=== PATIENT | male | born 1965 | race American Indian/Alaskan Native ===

== ENCOUNTER 2019-04-12 01:11 | Emergency (ER) | payer MEDICARE ==
[2019-04-12 02:10] VITALS: BP 152/107
[2019-04-12] MEDS ORDERED: IBUPROFEN 800 MG TAB PO ONE (02:43)
[2019-04-12 03:16] LABS: Basophils % (Auto) 0.2 % (0.0-1.8); Eosinophils # (Auto) 0.1 K/mm3 (0.0-0.4); Eosinophils % (Auto) 0.5 % (0.0-4.3); Hematocrit 37.3 % (35.5-45.6); Hemoglobin 12.3 gm/dl (11.8-15.2); Lymphocytes % (Auto) 34.1 % (13.4-35.0); Mean Corpuscular HGB Conc 33 % (32-34); Mean Corpuscular Volume 94 fl (84-94); Monocytes # (Auto) 1.8 K/mm3 (0.0-0.8); Monocytes % (Auto) 15.5 % (0.0-7.3); Platelet Count 201 K/mm3 (140-440); Red Blood Count 3.98 M/mm3 (3.65-5.03); Red Cell Distribution Width 14.3 % (13.2-15.2)
[2019-04-12 03:32] LABS: Alanine Aminotransferase 15 units/L (7-56); Albumin 3.7 g/dL (3.9-5); BUN/Creatinine Ratio 21; Blood Urea Nitrogen 17 mg/dL (9-20); Calcium 8.7 mg/dL (8.4-10.2); Hemolysis Index 23
--- NOTE | 2019-04-12 03:43 | Emergency Department Report ---
- General Chief complaint: Skin/Abscess/Foreign Body Stated complaint: GROWTH ON BACK Time Seen by Provider: 04/12/19 02:42 Source: patient Mode of arrival: Ambulatory Limitations: No Limitations - History of Present Illness Initial comments: 53-year-old -[place] male presents to the emergency room for a lump on the lower back times one week. Patient states in the last 48 hours it has gotten larger and more painful. Patient reports that he's had a lump back there for a while but has not changed in size until recently. Patient has a past medical history of hypertension, alcohol abuse, sepsis, SIRS. Patient is followed by the [facility]. Onset/Timin -: week(s) Tetanus Up to Date: yes Location: back Severity: severe Quality: burning, sharp Consistency: constant Improves with: none Worsens with: palpation, movement Context: none Associated symptoms: denies other symptoms Treatments Prior to Arrival: none - Related Data Previous Rx's Medication Instructions Recorded Last Taken Type Pantoprazole [Protonix TAB] 40 mg PO BID@0800,2200 #60 tablet 12/02/14 02/25/19 Rx 40 mg Potassium Chloride [K-Dur] 10 meq PO QDAY #30 tablet 12/02/14 02/25/19 Rx 10 meq Thiamine [Vitamin B-1] 100 mg PO QDAY #30 tablet 12/02/14 02/25/19 Rx 100 mg Folic Acid [Folvite] 1 mg PO QDAY #30 tablet 02/28/19 Unknown Rx Melatonin [Melatonin 5MG TAB] 5 mg PO QHS #30 tablet 02/28/19 Unknown Rx Multivitamin Tab W-MINERAL 1 each PO QDAY #30 tablet 02/28/19 Unknown Rx [Multiple Vitamin/Mineral (Theragran M)] Thiamine [Vitamin B-1] 100 mg PO QDAY #30 tablet 02/28/19 Unknown Rx carvediloL [Coreg] 12.5 mg PO BID #60 tablet 02/28/19 Unknown Rx Allergies Allergy/AdvReac Type Severity Reaction Status Date / Time lisinopril Allergy Angioedema Verified 11/12/14 19:57 tramadol Allergy Hives Verified 04/12/19 02:09 Abscess Boil HPI - HPI Chief Complaint: Skin/Abscess/Foreign Body Stated Complaint: GROWTH ON BACK Time Seen by Provider: 04/12/19 02:42 Home Medications: Previous Rx's Medication Instructions Recorded Last Taken Type Pantoprazole [Protonix TAB] 40 mg PO BID@0800,2200 #60 tablet 12/02/14 02/25/19 Rx 40 mg Potassium Chloride [K-Dur] 10 meq PO QDAY #30 tablet 12/02/14 02/25/19 Rx 10 meq Thiamine [Vitamin B-1] 100 mg PO QDAY #30 tablet 12/02/14 02/25/19 Rx 100 mg Folic Acid [Folvite] 1 mg PO QDAY #30 tablet 02/28/19 Unknown Rx Melatonin [Melatonin 5MG TAB] 5 mg PO QHS #30 tablet 02/28/19 Unknown Rx Multivitamin Tab W-MINERAL 1 each PO QDAY #30 tablet 02/28/19 Unknown Rx [Multiple Vitamin/Mineral (Theragran M)] Thiamine [Vitamin B-1] 100 mg PO QDAY #30 tablet 02/28/19 Unknown Rx carvediloL [Coreg] 12.5 mg PO BID #60 tablet 02/28/19 Unknown Rx Allergies/Adverse Reactions: Allergies Allergy/AdvReac Type Severity Reaction Status Date / Time lisinopril Allergy Angioedema Verified 11/12/14 19:57 tramadol Allergy Hives Verified 04/12/19 02:09 ED Review of Systems ROS: Stated complaint: GROWTH ON BACK Other details as noted in HPI Comment: All other systems reviewed and negative ED Past Medical Hx - Past Medical History Previous Medical History?: Yes Hx Hypertension: Yes Hx CVA: No Hx Congestive Heart Failure: No Hx Diabetes: No Hx Deep Vein Thrombosis: No Hx Liver Disease: No Hx Renal Disease: No Hx Sickle Cell Disease: No Hx Arthritis: No Hx Headaches / Migraines: No Hx Seizures: No Hx Psychiatric Treatment: Yes Hx Asthma: No Hx COPD: No Hx HIV: No Additional medical history: high cholesterol, depression - Surgical History Past Surgical History?: Yes Hx Open Heart Surgery: No Hx Pacemaker: No Hx Internal Defibrillator: No Hx Cholecystectomy: No Hx Appendectomy: No Hx Breast Surgery: No Additional Surgical History: Left rotator cuff surg x 3Left knee surg x 3. alcohol abuse - Social History Smoking Status: Never Smoker Substance Use Type: None - Medications Home Medications: Home Medications Medication Instructions Recorded Confirmed Last Taken Type Pantoprazole [Protonix TAB] 40 mg PO BID@0800,2200 #60 tablet 12/02/14 02/28/19 02/25/19 Rx 40 mg Potassium Chloride [K-Dur] 10 meq PO QDAY #30 tablet 12/02/14 02/28/19 02/25/19 Rx 10 meq Thiamine [Vitamin B-1] 100 mg PO QDAY #30 tablet 12/02/14 02/28/19 02/25/19 Rx 100 mg Folic Acid [Folvite] 1 mg PO QDAY #30 tablet 02/28/19 Unknown Rx Melatonin [Melatonin 5MG TAB] 5 mg PO QHS #30 tablet 02/28/19 Unknown Rx Multivitamin Tab W-MINERAL 1 each PO QDAY #30 tablet 02/28/19 Unknown Rx [Multiple Vitamin/Mineral (Theragran M)] Thiamine [Vitamin B-1] 100 mg PO QDAY #30 tablet 02/28/19 Unknown Rx carvediloL [Coreg] 12.5 mg PO BID #60 tablet 02/28/19 Unknown Rx ED Physical Exam - General Limitations: No Limitations General appearance: alert, in no apparent distress - Head Head exam: Present: atraumatic, normocephalic - Eye Eye exam: Present: normal appearance - ENT ENT exam: Present: mucous membranes moist - Neck Neck exam: Present: normal inspection - Respiratory Respiratory exam: Present: normal lung sounds bilaterally. Absent: respiratory distress - Cardiovascular Cardiovascular Exam: Present: regular rate, normal rhythm. Absent: systolic murmur, diastolic murmur, rubs, gallop - GI/Abdominal GI/Abdominal exam: Present: soft, normal bowel sounds - Rectal Rectal exam: Present: deferred - Extremities Exam Extremities exam: Present: normal inspection - Back Exam Back exam: Present: tenderness, other (4 x 6 indurated erythematous tender area to mid lower lumbar) - Neurological Exam Neurological exam: Present: alert, oriented X3 - Psychiatric Psychiatric exam: Present: normal affect, normal mood - Skin Skin exam: Present: warm, dry, intact, normal color. Absent: rash ED Course Vital Signs 04/12/19 01:16 Temperature 98.5 F Pulse Rate 104 H Respiratory 18 Rate Blood Pressure 152/107 O2 Sat by Pulse 95 Oximetry ED Medical Decision Making - Lab Data Result diagrams: 04/12/19 02:53 04/12/19 02:53 Laboratory Tests 04/12/19 04/12/19 02:53 02:53 WBC 11.8 H RBC 3.98 Hgb 12.3 Hct 37.3 MCV 94 MCH 31 MCHC 33 RDW 14.3 Plt Count 201 Lymph % (Auto) 34.1 [place] % (Auto) 15.5 H Eos % (Auto) 0.5 Baso % (Auto) 0.2 Lymph # 4.0 [place] # 1.8 H Eos # 0.1 Baso # 0.0 Seg Neutrophils % 49.7 Seg Neutrophils # 5.9 Sodium 142 Potassium 3.4 L Chloride 103.7 Carbon Dioxide 25 Anion Gap 17 BUN 17 Creatinine 0.8 Estimated GFR > 60 BUN/Creatinine Ratio 21 Glucose 114 H Calcium 8.7 Total Bilirubin 0.20 AST 22 ALT 15 Alkaline Phosphatase 68 Total Protein 7.3 Albumin 3.7 L Albumin/Globulin Ratio 1.0 - Radiology Data Radiology results: report reviewed Patient: EMIR BAEZ MR#: [id number] : 1965 Acct:[id number] Age/Sex: 53 / M ADM Date: 04/12/19 Loc: ED Attending Dr: Ordering Physician: TORSTEN NEUMANN Date of Service: 04/12/19 Procedure(s): CT lumbar spine w con Accession Number(s): [id number] cc: TORSTEN NEUMANN CT LUMBAR SPINE WITH CONTRAST INDICATION / CLINICAL INFORMATION: back abscess X 2 YEARS. WORSENING PAIN X 2 WEEKS. 100 ML OMNIPAQUE 300. TECHNIQUE: Axial CT images were obtained through the lumbar spine after 100 mL Omnipaque 300 injected IV. Sagittal and coronal reformatted images were produced. All CT scans at this location are performed using CT dose reduction for ALARA by means of automated exposure control. COMPARISON: CT abdomen dated 11/18/14 FINDINGS: VERTEBRAE: No significant abnormality. ALIGNMENT: No significant abnormality. DISC SPACES: Mild discogenic spondylosis at L4-5 and L5-S1, unchanged. FACET JOINTS: No significant abnormality. SPINAL CANAL: No significant compromise. SACRUM:No significant abnormality of the visualized sacrum. PARASPINAL SOFT TISSUES: No significant abnormality. ADDITIONAL FINDINGS: Within the posterior subcutaneous soft tissues just to the left of midline, there is an ill-defined inflammatory collection measuring 2.9 x 1.8 x 2.1 cm with mild surrounding soft tissue inflammation. As is best seen on axial series 4 image 333 and sagittal series 301 image 16. There is no communication with the spinal canal. Collection is superficial to the paraspinal musculature. IMPRESSION: 1. Inflammatory collection in the left back may represent developing abscess. No involvement of the paraspinal muscles or spinal canal. Signer Name: Yamilex Glasgow MD Signed: 04/12/2019 4:25 AM Workstation Name: [id number] Transcribed By: DT Dictated By: Eyad Glasgow MD Electronically Authenticated By: Eyad Glsagow MD Signed Date/Time: 04/12/195 DD/ 0419 TD/TT: - Medical Decision Making 53-year-old -[place] male presents to the emergency room for a lump on the lower back times one week. Patient states in the last 48 hours it has gotten larger and more painful. Patient reports that he's had a lump back there for a while but has not changed in size until recently. Patient has a past medical history of hypertension, alcohol abuse, sepsis, SIRS. Patient is followed by the [facility]. Labs have been ordered mild elevation of WBCs in the blood with 11.4. Potassium is 3.4. CT of lumbar is pending. Patient has been given ibuprofen for pain management. Critical care attestation.: If time is entered above; I have spent that time in minutes in the direct care of this critically ill patient, excluding procedure time. ED Disposition Clinical Impression: Abscess Disposition: DC-01 TO HOME OR SELFCARE Is pt being admited?: No Does the pt Need Aspirin: No Condition: Stable Referrals: GENNA AMARAL MD [Primary Care Provider] - 3-5 Days
--- NOTE | 2019-04-12 05:33 | Cat Scan Report ---
CT LUMBAR SPINE WITH CONTRAST INDICATION / CLINICAL INFORMATION: back abscess X 2 YEARS. WORSENING PAIN X 2 WEEKS. 100 ML OMNIPAQUE 300. TECHNIQUE: Axial CT images were obtained through the lumbar spine after 100 mL Omnipaque 300 injected IV. Sagitt al and coronal reformatted images were produced. All CT scans at this location are performed using CT dose reduction for ALARA by means of automated exposure control. COMPARISON: CT abdomen dated 11/18/14 FINDINGS: VERTEBRAE: No significant abnormality. ALIGNMENT: No significant abnormality. DISC SPACES: Mild discogenic spondylosis at L4-5 and L5-S1, unchanged. FACET JOINTS: No significant abnormality. SPINAL CANAL: No significant compromise. SACRUM:No significant abnormality of the visualized sacrum. PARASPINAL SOFT TISSUES: No significant abnormality. ADDITIONAL FINDINGS: Within the posterior subcutaneous soft tissues just to the left of midline, ther e is an ill-defined inflammatory collection measuring 2.9 x 1.8 x 2.1 cm with mild surrounding soft t issue inflammation. As is best seen on axial series 4 image 333 and sagittal series 301 image 16. The re is no communication with the spinal canal. Collection is superficial to the paraspinal musculature . IMPRESSION: 1. Inflammatory collection in the left back may represent developing abscess. No involvement of the p araspinal muscles or spinal canal. Signer Name: Yamilex Glasgow MD Signed: 04/12/2019 4:25 AM Workstation Name: [id number]
== END 2019-04-12 05:15 | disposition home or self-care (01) ==
LOC: ED 01:11
DX: M54.5 Low back pain (principal); I10 Essential (primary) hypertension; E78.00 Pure hypercholesterolemia, unspecified; F32.9 Major depressive disorder, single episode, unspecified; Z98.890 Other specified postprocedural states; Z79.899 Other long term (current) drug therapy; Z88.6 Allergy status to analgesic agent
CPT/HCPCS: 36415; 72132; 80053; 85025; 99284; Q9967

== ENCOUNTER 2020-10-16 22:15 | Observation (INO) | payer MEDICARE, OTHER ==
--- NOTE | 2020-10-17 00:26 | Event Note ---
ED Screening Note ED Screening Note: This is a 54 yo male with hx of lumbar DDD s/p surgery and resulting foot drop who presents with back pain. This gentleman is scheduled for back surgery within the next few months at the [facility]. This initial assessment/diagnostic orders/clinical plan/treatment(s) is/are subject to change based on patients health status, clinical progression and re- assessment by fellow clinical providers in the ED. Further treatment and workup at subsequent clinical providers discretion. Patient/guardian urged not to elope from the ED as their condition may be serious if not clinically assessed and managed. Initial orders include: To treatment room for pain control
[2020-10-17] MEDS ORDERED: HYDROcodone/ACETAMINOPHEN 10-325MG TAB PO ONE (00:35)
[2020-10-17] MEDS ORDERED: KETOROLAC 60 MG/2 ML INJ IM ONE (01:20)
--- NOTE | 2020-10-17 01:23 | Emergency Department Report ---
ED Back Pain/Injury HPI - General Chief Complaint: Back Pain/Injury Stated Complaint: back pains Time Seen by Provider: 10/17/20 00:34 Source: patient, EMS Limitations: No Limitations - History of Present Illness Initial Comments: This is a 54-year-old male nontoxic, well nourished in appearance, no acute signs of distress presents to the ED with c/o of acute on chronic lower back pain. Patient is scheduled for a lumbar surgery in 2 months. Patient has past medical history of degenerative arthritis. Patient stated that he was doing sit ups in his backyard and started to have instant pain. Patient states has history of sciatica nerve pain which is similar symptoms as today. Patient states that pain radiates through to his left lower extremity. Patient denies any trauma. Denies any bladder or bowel instability. Patient denies any urinary symptoms. Denies any fever, chills, nausea, vomiting, headache, stiff neck, chest pain or shortness of breath. Patient denies any numbness or tingling. Stated allergies to lisinopril and tramadol. MD Complaint: back pain -: This evening Similar Symptoms Previously: Yes Place: home Radiation: left leg Severity: mild Severity scale (0 -10): 8 Quality: aching Consistency: intermittent Improves With: immobilization, sitting upright Worsens With: movement, walking Context: bending Associated Symptoms: denies other symptoms. denies: confusion, weakness, chest pain, numbness, difficulty walking, cough, difficulty urinating, diaphoresis, incontinence, fever/chills, constipation, headaches, abdominal pain, loss of appetite, malaise, nausea/vomiting, rash, seizure, shortness of breath, syncope - Related Data Previous Rx's Medication Instructions Recorded Last Taken Type Pantoprazole [Protonix TAB] 40 mg PO BID@0800,2200 #60 tablet 12/02/14 02/25/19 Rx 40 mg Potassium Chloride [K-Dur] 10 meq PO QDAY #30 tablet 12/02/14 02/25/19 Rx 10 meq Thiamine [Vitamin B-1] 100 mg PO QDAY #30 tablet 12/02/14 02/25/19 Rx 100 mg Folic Acid [Folvite] 1 mg PO QDAY #30 tablet 02/28/19 Unknown Rx Melatonin [Melatonin 5MG TAB] 5 mg PO QHS #30 tablet 02/28/19 Unknown Rx Multivitamin Tab W-MINERAL 1 each PO QDAY #30 tablet 02/28/19 Unknown Rx [Multiple Vitamin/Mineral (Theragran M)] Thiamine [Vitamin B-1] 100 mg PO QDAY #30 tablet 02/28/19 Unknown Rx carvediloL [Coreg] 12.5 mg PO BID #60 tablet 02/28/19 Unknown Rx Allergies Allergy/AdvReac Type Severity Reaction Status Date / Time lisinopril Allergy Angioedema Verified 11/12/14 19:57 tramadol Allergy Hives Verified 04/12/19 02:09 ED Review of Systems ROS: Stated complaint: back pains Other details as noted in HPI Comment: All other systems reviewed and negative Constitutional: denies: chills, fever Eyes: denies: eye pain, eye discharge, vision change ENT: denies: ear pain, throat pain Respiratory: denies: cough, shortness of breath, wheezing Cardiovascular: denies: chest pain, palpitations Endocrine: no symptoms reported Gastrointestinal: denies: abdominal pain, nausea, diarrhea Genitourinary: denies: urgency, dysuria Musculoskeletal: back pain. denies: joint swelling, arthralgia Skin: denies: rash, lesions Neurological: denies: headache, weakness, paresthesias Psychiatric: denies: anxiety, depression Hematological/Lymphatic: denies: easy bleeding, easy bruising ED Past Medical Hx - Past Medical History Previous Medical History?: Yes Hx Hypertension: Yes Hx CVA: No Hx Congestive Heart Failure: No Hx Diabetes: Yes Hx Deep Vein Thrombosis: No Hx Liver Disease: No Hx Renal Disease: No Hx Sickle Cell Disease: No Hx Arthritis: No Hx Headaches / Migraines: No Hx Seizures: No Hx Psychiatric Treatment: Yes Hx Asthma: No Hx COPD: No Hx HIV: No Additional medical history: high cholesterol, depression, Sciatica, Foot drop on left foot - Surgical History Past Surgical History?: Yes Hx Open Heart Surgery: No Hx Pacemaker: No Hx Internal Defibrillator: No Hx Cholecystectomy: No Hx Appendectomy: No Hx Breast Surgery: No Additional Surgical History: Left rotator cuff surg x 3Left knee surg x 3. alcohol abuse - Social History Smoking Status: Never Smoker - Medications Home Medications: Home Medications Medication Instructions Recorded Confirmed Last Taken Type Pantoprazole [Protonix TAB] 40 mg PO BID@0800,2200 #60 tablet 12/02/14 02/28/1919 Rx 40 mg Potassium Chloride [K-Dur] 10 meq PO QDAY #30 tablet 12/02/14 02/28/19 02/25/19 Rx 10 meq Thiamine [Vitamin B-1] 100 mg PO QDAY #30 tablet 12/02/14 02/28/19 02/25/19 Rx 100 mg Folic Acid [Folvite] 1 mg PO QDAY #30 tablet 02/28/19 Unknown Rx Melatonin [Melatonin 5MG TAB] 5 mg PO QHS #30 tablet 02/28/19 Unknown Rx Multivitamin Tab W-MINERAL 1 each PO QDAY #30 tablet 02/28/19 Unknown Rx [Multiple Vitamin/Mineral (Theragran M)] Thiamine [Vitamin B-1] 100 mg PO QDAY #30 tablet 02/28/19 Unknown Rx carvediloL [Coreg] 12.5 mg PO BID #60 tablet 02/28/19 Unknown Rx ED Physical Exam - General Limitations: No Limitations General appearance: alert, in no apparent distress - Head Head exam: Present: atraumatic, normocephalic - Eye Eye exam: Present: normal appearance - Neck Neck exam: Present: normal inspection, full ROM. Absent: tenderness, meningismus, lymphadenopathy - Respiratory Respiratory exam: Absent: respiratory distress - Cardiovascular Cardiovascular Exam: Present: regular rate - GI/Abdominal GI/Abdominal exam: Present: soft. Absent: distended, tenderness - Extremities Exam Extremities exam: Present: normal inspection - Back Exam Back exam: Present: normal inspection, full ROM, paraspinal tenderness (lumbar paraspinal). Absent: tenderness, CVA tenderness (R), CVA tenderness (L), muscle spasm, vertebral tenderness, rash noted - Expanded Back Exam Expanded Back exam: Absent: saddle anesthesia Back exam: Negative Straight Leg Raising: Left, Right - Neurological Exam Neurological exam: Present: alert, oriented X3 - Psychiatric Psychiatric exam: Present: normal affect, normal mood - Skin Skin exam: Present: warm, dry, intact, normal color. Absent: rash ED Course Vital Signs 10/17/20 10/17/20 01:26 01:30 Pulse Rate 128 H 123 H Respiratory 20 19 Rate Blood Pressure 156/93 O2 Sat by Pulse 94 Oximetry - Reevaluation(s) Reevaluation #1: 10/17/20 01:21 Patient is speaking in full sentences with no signs of distress noted. - Consultations Consultation #1: 10/17/20 02:03 Patient has been consulted with Ivan Greer about patient history, physical exam, and EKG results and agrees to ED plan of care with admission. Consultation #2: 10/17/20 02:34 Patient has been consulted with [place] about patient history, physical exam, and labs results and agrees to imaging studies and admission. Consultation #3: 10/17/20 03:57 Patient has been consulted with Dr. Heard (hospitalist) about patient history, physical exam, and labs/imaging results and accepts patient to services. ED Medical Decision Making - Lab Data Result diagrams: 10/17/20 01:43 10/17/20 01:43 Lab Results 10/17/20 10/17/20 10/17/20 Range/Units 01:43 01:43 01:43 WBC 11.1 H (4.5-11.0) K/mm3 RBC 4.43 (3.65-5.03) M/mm3 Hgb 13.7 (11.8-15.2) gm/dl Hct 40.2 (35.5-45.6) % MCV 91 (84-94) fl MCH 31 (28-32) pg MCHC 34 (32-34) % RDW 15.6 H (13.2-15.2) % Plt Count 148 (140-440) K/mm3 Lymph % (Auto) 28.4 (13.4-35.0) % [place] % (Auto) 12.4 H (0.0-7.3) % Eos % (Auto) 0.4 (0.0-4.3) % Baso % (Auto) 0.4 (0.0-1.8) % Lymph # (Auto) 3.2 (1.2-5.4) K/mm3 [place] # (Auto) 1.4 H (0.0-0.8) K/mm3 Eos # (Auto) 0.0 (0.0-0.4) K/mm3 Baso # (Auto) 0.0 (0.0-0.1) K/mm3 Seg Neutrophils % 58.4 (40.0-70.0) % Seg Neutrophils # 6.5 (1.8-7.7) K/mm3 PT 13.9 (12.2-14.9) Sec. INR 1.09 (0.87-1.13) APTT 26.1 (24.2-36.6) Sec. D-Dimer 768.42 H (0-234) ng/mlDDU Sodium 137 (137-145) mmol/L Potassium 3.7 (3.6-5.0) mmol/L Chloride 93.4 L (98-107) mmol/L Carbon Dioxide 25 (22-30) mmol/L Anion Gap 22 mmol/L BUN 29 H (9-20) mg/dL Creatinine 3.1 H (0.8-1.3) mg/dL Estimated GFR 25 ml/min BUN/Creatinine Ratio 9 % Glucose 150 H (75-100) mg/dL Calcium 9.5 (8.4-10.2) mg/dL Total Bilirubin 0.50 (0.1-1.2) mg/dL AST 179 H (5-40) units/L ALT 45 (7-56) units/L Alkaline Phosphatase 54 (35-129) units/L Troponin T 0.022 (0.00-0.029) ng/mL Total Protein 7.5 (6.3-8.2) g/dL Albumin 4.5 (3.9-5) g/dL Albumin/Globulin Ratio 1.5 % - EKG Data 10/17/20 02:04 A flutter with 2:1 AV block at 141 bpm. Left anterior fascicular block. Reviewed and signed by . - Radiology Data [facility] [address] [place] [address] Cat Scan Report Signed Patient: EMIR BAEZ MR#: [id number] : 1965 Acct:[id number] Age/Sex: 54 / M ADM Date: 10/16/20 Loc: ED Attending Dr: Sugar flannery Physician: JOHANNA STARKS NP Date of Service: 10/17/20 Procedure(s): CT chest wo con Accession Number(s): [id number] cc: JOHANNA STARKS NP CT CHEST, ABDOMEN, AND PELVIS WITHOUT CONTRAST INDICATION / CLINICAL INFORMATION: back pain with elevated d-dimmer and tachycardia. TECHNIQUE: Axial CT images were obtained through the chest, abdomen, and pelvis without contrast. All CT scans at this location are performed using CT dose reduction for ALARA by means of automated exposure control. COMPARISON: Patient's prior CT scan from 2015 is not available for comparison. FINDINGS: HEART: No significant abnormality. CORONARY ARTERY CALCIFICATION: None. THORACIC AORTA: No significant abnormality. MEDIA STINUM / TC: No significant abnormality. PLEURA: No pleural effusion. No pneumothorax. LUNGS: No acute air space or interstitial disease. ADDITIONAL CHEST FINDINGS: None. LIVER: No significant abnormality. GALLBLADDER: No significant abnormality. BILE DUCTS: No significant abnormality. PANCREAS: No significant abnormality. SPLEEN: No significant abnormality. ADRENALS: No significant abnormality. RIGHT KIDNEY / URETER: No significant abnormality. LEFT KIDNEY / URETER: No significant abnormality. STOMACH and SMALL BOWEL: No significant abnormality. COLON: No significant abnormality. APPENDIX: No significant abnormality. PERITONEUM: No free fluid. No free air. No fluid collection. There is a 10 cm fat density mass with some soft tissue components in the central mesentery. This could represent fat necrosis. This could represent a lipoma. With the amount of soft tissue density associated with this the possibility of liposarcoma is considered. LYMPH NODES: No significant adenopathy. AORTA / ARTERIES: No significant abnormality. IVC / VEINS: No significant abnormality. URINARY BLADDER: No significant abnormality. REPRODUCTIVE ORGANS: No significant abnormality. ADDITIONAL FINDINGS: None. SKELETAL SYSTEM: No acute abnormality. There is degenerative change in the lower lumbar spine with disc space narrowing and osteophyte formation at L4-5 and L5- S1. IMPRESSION: 1. There is no obstruction, inflammation, or free air. There are no abnormal fluid collections. There are no renal or ureteral calculi. There is no hydronephrosis. 2. There is a 10 cm fat density mass in the central mesent [place] which could represent a lipoma or much less likely liposarcoma. Signer Name: Nikita Sanchez MD Signed: 10/17/2020 3:37 AM Workstation Name: [id number] Transcribed By: Dictated By: Nikita Sanchez MD Electronically Authenticated By: Nikita Sanchez MD Signed Date/Time: 10/17/20 0337 DD/ 8 TD/TT: [facility] [address] [place] [address] Cat Scan Report Signed Patient: EMIR BAEZ MR#: [id number] : 1965 Acct:[id number] Age/Sex: 54 / M ADM Date: 10/16/20 Loc: ED Attending Dr: Ordering Physician: JOHANNA STARKS NP Date of Service: 10/17/20 Procedure(s): CT abdomen pelvis wo con Accession Number(s): [id number] cc: JOHANNA STARKS NP CT CHEST, ABDOMEN, AND PELVIS WITHOUT CONTRAST INDICATION / CLINICAL INFORMATION: back pain with elevated d-dimmer and tachycardia. TECHNIQUE: Axial CT images were obtained through the chest, abdomen, and pelvis without contrast. All CT scans at this location are performed using CT dose reduction for ALARA by means of automated exposure control. COMPARISON: Patient's prior CT scan from 2014 is not available for comparison. FINDINGS: HEART: No significant abnormality. CORONARY ARTERY CALCIFICATION: None. THORACIC AORTA: No significant abnormality. MEDIASTINUM / TC: No significant abnormality. PLEURA: No pleural effusion. No pneumothorax. LUNGS: No acute air space or interstitial disease. ADDITIONAL CHEST FINDINGS: None. LIVER: No significant abnormality. GALLBLADDER: No significant abnormality. BILE DUCTS: No significant abnormality. PANCREAS: No significant abnormality. SPLEEN: No significant abnormality. ADRENALS: No significant abnormality. RIGHT KIDNEY / URETER: No significant abnormality. LEFT KIDNEY / URETER: No significant abnormality. STOMACH and SMALL BOWEL: No significant abnormality. COLON: No significant abnormality. APPENDIX: No significant abnormality. PERITONEUM: No free fluid. No free air. No fluid collection. There is a 10 cm fat density mass with some soft tissue components in the central mesentery. This could represent fat necrosis. This could represent a lipoma. With the amount of soft tissue density associated with this the possibility of liposarcoma is considered. LYMPH NODES: No significant adenopathy. AORTA / ARTERIES: No significant abnormality. IVC / VEINS: No significant abnormality. URINARY BLADDER: No significant abnormality. REPRODUCTIVE ORGANS: No significant abnormality. ADDITIONAL FINDINGS: None. SKELETAL SYSTEM: No acute abnormality. There is degenerative change in the lower lumbar spine with disc space narrowing and osteophyte formation at L4-5 and L5- S1. IMPRESSION: 1. There is no obstruction, inflammation, or free air. There are no abnormal fluid collections. There are no renal or ureteral calculi. There is no hydronephrosis. 2. There is a 10 cm fat density mass in the central mese ntery which could represent a lipoma or much less likely liposarcoma. Signer Name: Nikita Sanchez MD Signed: 10/17/2020 3:37 AM Workstation Name: [id number] Transcribed By: Dictated By: Nikita Sanchez MD Electronically Authenticated By: Nikita Sanchez MD Signed Date/Time: 10/17/20 0337 DD/ TD/TT: [address] [address] XRay Report Signed Patient: EMIR BAEZ MR#: [id number] : 1965 Acct:[id number] Age/Sex: 54 / M ADM Date: 10/16/20 Loc: ED Attending Dr: Ordering Physician: JOHANNA STARKS NP Date of Service: 10/17/20 Procedure(s): XR spine lumbosacral 2-3V Accession Number(s): [id number] cc: JOHANNA STARKS NP Fluoro Time In Minutes: LUMBAR SPINE 2 VIEWS INDICATION: low back pain COMPARISON: None available FINDINGS: There is no fracture, subluxation, or other acute radiographic abnormality of the lumbar spine. There is degenerative change in the lower lumbar spine with disc space narrowing at L4-5 and L5-S1 and to a lesser extent at L3-4. There is anterior osteophyte formation. Signer Name: Nikita Sanchez MD Signed: 10/17/2020 2:45 AM Workstation Name: [id number] Transcribed By: Dictated By: Nikita Sanchez MD Electronically Authenticated By: Nikita Sanchez MD Signed Date/Time: 10/17/20 0245 DD/ 0243 TD/TT: [address] [address] XRay Report Signed Patient: EMIR BAEZ MR#: [id number] : 1965 Acct:[id number] Age/Sex: 54 / M ADM Date: 10/16/20 Loc: ED Attending Dr: Ordering Physician: JOHANNA STARKS NP Date of Service: 10/17/20 Procedure(s): XR chest 1V ap Accession Number(s): [id number] cc: JOHANNA STARKS NP Fluoro Time In Minutes: CHEST 1 VIEW 10/17/2020 2:32 AM INDICATION / CLINICAL INFORMATION: tachycardia. COMPARISON: 02/26/2019 FINDINGS: SUPPORT DEVICES: None. HEART / MEDIASTINUM: No significant abnormality. LUNGS / PLEURA: No significant pulmonary or pleural abnormality. No pneumothorax. ADDITIONAL FINDINGS: No significant additional findings. IMPRESSION: 1. No acute findings. Signer Name: Nikita Sanhcez MD Signed: 10/17/2020 2:42 AM Workstation Name: [id number] Transcribed By: SS Dictated By: Nikita Sanchez MD Electronically Authenticated By: Nikita Sanchez MD Signed Date/Time: 10/17/20241 DD/ 1 TD/TT: - Medical Decision Making 54-year-old male that presents with acute onset of kidney insufficiency with a flutter with 2:1 AV block. Patient is stable and was examined by me. Patient came in with hypotension and tachycardia. EKG and lab work has been obtained due to this. This is a new acute onset as patient denies any history of this. Patient admitted with hospitalist. Patient did consult with ED physician and agrees to the ED plan of care. Patient is notified of the imaging and lab with EKG results with no questions noted by by the patient. At time of admission, the patient does not seem toxic or ill in appearance. No acute signs of distress noted. Patient agrees to admission treatment plan of care. No further questions noted by the patient. - Differential Diagnosis UTI, low back strain, dissection, lumbar abscess, AAA Critical care attestation.: If time is entered above; I have spent that time in minutes in the direct care of this critically ill patient, excluding procedure time. ED Disposition Clinical Impression: AV block, Acute kidney insufficiency, Tachycardia, Mediastinal mass Atrial flutter Qualifiers: Atrial flutter type: unspecified Qualified Code(s): I48.92 - Unspecified atrial flutter Chronic back pain Qualifiers: Back pain location: low back pain Back pain laterality: bilateral Sciatica presence: with sciatica Sciatica laterality: sciatica of left side Qualified Code(s): M54.42 - Lumbago with sciatica, left side Disposition: - OP ADMIT IP TO THIS HOSP Is pt being admited?: Yes Condition: Stable Referrals: [facility] [Other] - 3-5 Days
[2020-10-17] MEDS ORDERED: SODIUM CHLORIDE 0.9% 1000 ML 1,000 ML IV ONE (01:38)
[2020-10-17 02:06] LABS: Basophils % (Auto) 0.4 % (0.0-1.8); Eosinophils % (Auto) 0.4 % (0.0-4.3); Hematocrit 40.2 % (35.5-45.6); Hemoglobin 13.7 gm/dl (11.8-15.2); Lymphocytes # (Auto) 3.2 K/mm3 (1.2-5.4); Lymphocytes % (Auto) 28.4 % (13.4-35.0); Mean Corpuscular HGB Conc 34 % (32-34); Mean Corpuscular Volume 91 fl (84-94); Monocytes # (Auto) 1.4 K/mm3 (0.0-0.8); Monocytes % (Auto) 12.4 % (0.0-7.3); Platelet Count 148 K/mm3 (140-440); Red Blood Count 4.43 M/mm3 (3.65-5.03); Red Cell Distribution Width 15.6 % (13.2-15.2)
[2020-10-17 02:16] LABS: INR 1.09 (0.87-1.13); Partial Thromboplastin Time 26.1 Sec. (24.2-36.6)
[2020-10-17 02:26] LABS: Albumin 4.5 g/dL (3.9-5); Calcium 9.5 mg/dL (8.4-10.2)
--- NOTE | 2020-10-17 02:47 | XRay Report ---
CHEST 1 VIEW 10/17/2020 2:32 AM INDICATION / CLINICAL INFORMATION: tachycardia. COMPARISON: 02/26/2019 FINDINGS: SUPPORT DEVICES: None. HEART / MEDIASTINUM: No significant abnormality. LUNGS / PLEURA: No significant pulmonary or pleural abnormality. No pneumothorax. ADDITIONAL FINDINGS: No significant additional findings. IMPRESSION: 1. No acute findings. Signer Name: Nikita Sanchez MD Signed: 10/17/2020 2:42 AM Workstation Name: [id number]
--- NOTE | 2020-10-17 02:49 | XRay Report ---
LUMBAR SPINE 2 VIEWS INDICATION: low back pain COMPARISON: None available FINDINGS: There is no fracture, subluxation, or other acute radiographic abnormality of the lumbar spine. There is degenerative change in the lower lumbar spine with disc space narrowing at L4-5 and L5-S1 and to a lesser extent at L3-4. There is anterior osteophyte formation. Signer Name: Nikita Sanchez MD Signed: 10/17/2020 2:45 AM Workstation Name: [id number]
--- NOTE | 2020-10-17 03:42 | Cat Scan Report ---
CT CHEST, ABDOMEN, AND PELVIS WITHOUT CONTRAST INDICATION / CLINICAL INFORMATION: back pain with elevated d-dimmer and tachycardia. TECHNIQUE: Axial CT images were obtained through the chest, abdomen, and pelvis without contrast. All CT scans at this location are performed using CT dose reduction for ALARA by means of automated expo sure control. COMPARISON: Patient's prior CT scan from 2015 is not available for comparison. FINDINGS: HEART: No significant abnormality. CORONARY ARTERY CALCIFICATION: None. THORACIC AORTA: No significant abnormality. MEDIASTINUM / TC: No significant abnormality. PLEURA: No pleural effusion. No pneumothorax. LUNGS: No acute air space or interstitial disease. ADDITIONAL CHEST FINDINGS: None. LIVER: No significant abnormality. GALLBLADDER: No significant abnormality. BILE DUCTS: No significant abnormality. PANCREAS: No significant abnormality. SPLEEN: No significant abnormality. ADRENALS: No significant abnormality. RIGHT KIDNEY / URETER: No significant abnormality. LEFT KIDNEY / URETER: No significant abnormality. STOMACH and SMALL BOWEL: No significant abnormality. COLON: No significant abnormality. APPENDIX: No significant abnormality. PERITONEUM: No free fluid. No free air. No fluid collection. There is a 10 cm fat density mass with s ome soft tissue components in the central mesentery. This could represent fat necrosis. This could re present a lipoma. With the amount of soft tissue density associated with this the possibility of lipo sarcoma is considered. LYMPH NODES: No significant adenopathy. AORTA / ARTERIES: No significant abnormality. IVC / VEINS: No significant abnormality. URINARY BLADDER: No significant abnormality. REPRODUCTIVE ORGANS: No significant abnormality. ADDITIONAL FINDINGS: None. SKELETAL SYSTEM: No acute abnormality. There is degenerative change in the lower lumbar spine with di sc space narrowing and osteophyte formation at L4-5 and L5-S1. IMPRESSION: 1. There is no obstruction, inflammation, or free air. There are no abnormal fluid collections. There are no renal or ureteral calculi. There is no hydronephrosis. 2. There is a 10 cm fat density mass in the central mesentery which could represent a lipoma or much less likely liposarcoma. Signer Name: Nikita Sanchez MD Signed: 10/17/2020 3:37 AM Workstation Name: [id number]
[2020-10-17] MEDS ORDERED: dilTIAZem 25 MG/5 ML INJ IV ONE (04:37)
[2020-10-17] MEDS ORDERED: ACETAMINOPHEN 325 MG TAB PO PRN ×2 (05:29→05:48)
[2020-10-17] MEDS ORDERED: traMADol 50 MG TAB PO PRN (05:29)
[2020-10-17] MEDS ORDERED: MORPHINE 2 MG/1 ML INJ IV PRN (05:29)
[2020-10-17] MEDS ORDERED: hydrALAZINE 20 MG/1 ML INJ IV PRN ×2 (05:35→05:47)
--- NOTE | 2020-10-17 05:40 | History and Physical Report ---
History of Present Illness Date of examination: 10/17/20 Date of admission: 10/17/20 Chief complaint: Back pain/injury History of present illness: 54-year-old male with history of c/o of acute on chronic lower back pain, degenerative arthritis was brought to the emergency room for severe back pain .he is supposed to have lumbar surgery in 2 months. Patient stated that he was doing sit ups in his backyard and started to have instant pain. Patient states has history of sciatica nerve pain which is similar symptoms as today. Patient states that pain radiates through to his left lower extremity. Patient denies any trauma. Denies any bladder or bowel instability. Patient denies any urinary symptoms. Denies any fever, chills, nausea, vomiting, headache, stiff neck, chest pain or shortness of breath. Patient denies any numbness or tingling. Stated allergies to lisinopril and tramadol. In the ER patient is found to have a flutter A. fib with a heart rate around 140 Past History Past Medical History: arthritis Medications and Allergies Allergies Allergy/AdvReac Type Severity Reaction Status Date / Time lisinopril Allergy Angioedema Verified 11/12/14 19:57 tramadol Allergy Hives Verified 04/12/19 02:09 Home Medications Medication Instructions Recorded Confirmed Last Taken Type Pantoprazole [Protonix TAB] 40 mg PO BID@0800,2200 #60 tablet 12/02/14 02/28/19 02/25/19 Rx 40 mg Potassium Chloride [K-Dur] 10 meq PO QDAY #30 tablet 12/02/14 02/28/19 02/25/19 Rx 10 meq Thiamine [Vitamin B-1] 100 mg PO QDAY #30 tablet 12/02/14 02/28/19 02/25/19 Rx 100 mg Folic Acid [Folvite] 1 mg PO QDAY #30 tablet 02/28/19 Unknown Rx Melatonin [Melatonin 5MG TAB] 5 mg PO QHS #30 tablet 02/28/19 Unknown Rx Multivitamin Tab W-MINERAL 1 each PO QDAY #30 tablet 02/28/19 Unknown Rx [Multiple Vitamin/Mineral (Theragran M)] Thiamine [Vitamin B-1] 100 mg PO QDAY #30 tablet 02/28/19 Unknown Rx carvediloL [Coreg] 12.5 mg PO BID #60 tablet 02/28/19 Unknown Rx Active Meds: Active Medications Acetaminophen (Acetaminophen 325 Mg Tab) 650 mg PO Q6H PRN PRN Reason: Pain, Mild (1-3) Aspirin (Aspirin Ec 325 Mg Tab) 325 mg PO QDAY [facility] Atorvastatin Calcium (Atorvastatin 40 Mg Tab) 40 mg PO QHS [facility] Carvedilol (Carvedilol 12.5 Mg Tab) 12.5 mg PO BID [facility] Folic Acid (Folic Acid 1 Mg Tab) 1 mg PO QDAY [facility] Heparin Sodium (Porcine) (Heparin 5,000 Unit/1 Ml Vial) 5,000 unit SUB-Q Q8HR [facility] Hydralazine HCl (Hydralazine 20 Mg/1 Ml Inj) 10 mg IV Q6H PRN PRN Reason: htn Sodium Chloride (Nacl 0.45% 1000 Ml) 1,000 mls @ 100 mls/hr IV DIRECT [facility] Sodium Chloride (Nacl 0.45% 1000 Ml) 1,000 mls @ 100 mls/hr IV DIRECT [facility] Morphine Sulfate (Morphine 4 Mg/1 Ml Inj) 2 mg IV Q5MIN PRN PRN Reason: Chest Pain Multivitamins/Minerals (Multivitamins,Ther W-Minerals Tab) 1 each PO QDAY [facility] Pantoprazole Sodium (Pantoprazole 40 Mg Tab) 40 mg PO QDAY [facility] Pantoprazole Sodium (Pantoprazole 40 Mg Tab) 40 mg PO BID@0800,2200 [facility] Sodium Chloride (Sodium Chloride 0.9% 10 Ml Flush Syringe) 10 ml IV PRN PRN PRN Reason: LINE FLUSH Thiamine HCl (Thiamine 100 Mg Tab) 100 mg PO QDAY [facility] Tramadol HCl (Tramadol 50 Mg Tab) 50 mg PO Q6H PRN PRN Reason: Pain, Moderate (4-6) Review of Systems Musculoskeletal: arthritis, other (Severe back pain) Exam - Constitutional Vitals: Temp Pulse Resp BP Pulse Ox 123 H 19 156/93 94 10/17/20 01:30 10/17/20 01:30 10/17/20 01:30 10/17/20 01:30 General appearance: Present: no acute distress, well-nourished - EENT Eyes: Present: PERRL ENT: hearing intact, clear oral mucosa - Neck Neck: Present: supple, normal ROM - Respiratory Respiratory effort: normal Respiratory: bilateral: CTA - Cardiovascular Heart Sounds: Present: S1 & S2. Absent: rub, click - Extremities Extremities: pulses symmetrical, No edema Peripheral Pulses: within normal limits - Abdominal General gastrointestinal: Present: soft, non-tender, non-distended, normal bowel sounds Male genitourinary: Present: normal - Integumentary Integumentary: Present: clear, warm, dry - Musculoskeletal Musculoskeletal: gait normal, strength equal bilaterally - Psychiatric Psychiatric: appropriate mood/affect, intact judgment & insight - Neurologic Neurologic: CNII-XII intact, moves all extremities HEART Score - HEART Score Troponin: Troponin T 0.022 ng/mL (0.00-0.029) 10/17/20 01:43 Results - Labs CBC & Chem 7: 10/17/20 01:43 10/17/20 01:43 Labs: Laboratory Last Values WBC 11.1 K/mm3 (4.5-11.0) H 10/17/20 01:43 RBC 4.43 M/mm3 (3.65-5.03) 10/17/20 01:43 Hgb 13.7 gm/dl (11.8-15.2) 10/17/20 01:43 Hct 40.2 % (35.5-45.6) 10/17/20 01:43 MCV 91 fl (84-94) 10/17/20 01:43 MCH 31 pg (28-32) 10/17/20 01:43 MCHC 34 % (32-34) 10/17/20 01:43 RDW 15.6 % (13.2-15.2) H 10/17/20 01:43 Plt Count 148 K/mm3 (140-440) 10/17/20 01:43 Lymph % (Auto) 28.4 % (13.4-35.0) 10/17/20 01:43 Ocean % (Auto) 12.4 % (0.0-7.3) H 10/17/20 01:43 Eos % (Auto) 0.4 % (0.0-4.3) 10/17/20 01:43 Baso % (Auto) 0.4 % (0.0-1.8) 10/17/20 01:43 Lymph # (Auto) 3.2 K/mm3 (1.2-5.4) 10/17/20 01:43 [place] # (Auto) 1.4 K/mm3 (0.0-0.8) H 10/17/20 01:43 Eos # (Auto) 0.0 K/mm3 (0.0-0.4) 10/17/20 01:43 Baso # (Auto) 0.0 K/mm3 (0.0-0.1) 10/17/20 01:43 Seg Neutrophils % 58.4 % (40.0-70.0) 10/17/20 01:43 Seg Neutrophils # 6.5 K/mm3 (1.8-7.7) 10/17/20 01:43 PT 13.9 Sec. (12.2-14.9) 10/17/20 01:43 INR 1.09 (0.87-1.13) 10/17/20 01:43 APTT 26.1 Sec. (24.2-36.6) 10/17/20 01:43 D-Dimer 768.42 ng/mlDDU (0-234) H 10/17/20 01:43 Sodium 137 mmol/L (137-145) 10/17/20 01:43 Potassium 3.7 mmol/L (3.6-5.0) 10/17/20 01:43 Chloride 93.4 mmol/L (98-107) L 10/17/20 01:43 Carbon Dioxide 25 mmol/L (22-30) 10/17/20 01:43 Anion Gap 22 mmol/L 10/17/20 01:43 BUN 29 mg/dL (9-20) H 10/17/20 01:43 Creatinine 3.1 mg/dL (0.8-1.3) H 10/17/20 01:43 Estimated GFR 25 ml/min 10/17/20 01:43 BUN/Creatinine Ratio 9 % 10/17/20 01:43 Glucose 150 mg/dL (75-100) H 10/17/20 01:43 Calcium 9.5 mg/dL (8.4-10.2) 10/17/20 01:43 Total Bilirubin 0.50 mg/dL (0.1-1.2) 10/17/20 01:43 AST 179 units/L (5-40) H 10/17/20 01:43 ALT 45 units/L (7-56) 10/17/20 01:43 Alkaline Phosphatase 54 units/L (35-129) 10/17/20 01:43 Troponin T 0.022 ng/mL (0.00-0.029) 10/17/20 01:43 Total Protein 7.5 g/dL (6.3-8.2) 10/17/20 01:43 Albumin 4.5 g/dL (3.9-5) 10/17/20 01:43 Albumin/Globulin Ratio 1.5 % 10/17/20 01:43 - Imaging and Cardiology Chest x-ray: image reviewed CT scan - chest: image reviewed Assessment and Plan VTE prophylaxis?: Chemical Plan of care discussed with patient/family: Yes - Patient Problems (1) Atrial flutter Current Visit: Yes Status: Acute Qualifiers: Atrial flutter type: unspecified Qualified Code(s): I48.92 - Unspecified atrial flutter Plan to address problem: Admit the patient to the cardiac telemetry. Coreg 12.5 mg p.o. twice daily. Aspirin 325 mg p.o. daily and Lipitor 40 mg p.o. daily. Will order echocardiogram. We also consult cardiology for evaluation. Heparin 5000 units subcu every 8 hours (2) AV block Current Visit: Yes Status: Acute Plan to address problem: Coreg 12.5 mg p.o. twice daily. Aspirin 325 mg p.o. daily and Lipitor 40 mg p.o. daily. Will order echocardiogram. We also consult cardiology for evaluation. Heparin 5000 units subcu every 8 hours (3) Chronic back pain Current Visit: Yes Status: Acute Qualifiers: Back pain location: low back pain Back pain laterality: bilateral Sciatica presence: with sciatica Sciatica laterality: sciatica of left side Qualified Code(s): M54.42 - Lumbago with sciatica, left side; G89.29 - Other chronic pain Plan to address problem: Tylenol 650 mg p.o. every 6 hours as needed. We also put the patient on morphine 1 to 2 mg IV every 4 hours as needed. (4) Accelerated hypertension Current Visit: No Status: Acute Plan to address problem: Coreg 12.5 mg p.o. twice daily. Hydralazine 10 mg IV every 6 hours as needed. We will monitor the blood pressure closely. We also consult cardiology for further evaluation (5) Acute renal failure Current Visit: No Status: Acute Plan to address problem: Half-normal saline at the rate of 100 cc/h. Avoid nephrotoxic drug. We will consult nephrology for evaluation. Repeat CBC BMP in the morning (6) DVT prophylaxis Current Visit: Yes Status: Acute Plan to address problem: Heparin 5000 units subcu every 8 hours for DVT prophylaxis. Protonix 40 mg p.o. daily for GI prophylaxis. Patient is a full code
[2020-10-17] MEDS ORDERED: ONDANSETRON 4 MG/2 ML INJ IV PRN (05:48)
[2020-10-17] MEDS ORDERED: HEPARIN 5,000 UNIT/1 ML VIAL SUB-Q SCH ×2 (06:00)
[2020-10-17] MEDS ORDERED: SODIUM CHLORIDE 0.45% 1000 ML 1,000 ML IV SCH ×2 (06:00)
[2020-10-17 06:21] LABS: Calcium 9.3 mg/dL (8.4-10.2)
[2020-10-17] MEDS ORDERED: PANTOPRAZOLE 40 MG TAB PO SCH ×2 (08:00→10:00)
[2020-10-17] MEDS: PANTOPRAZOLE 40 MG TAB PO SCH (08:34)
[2020-10-17] MEDS: SODIUM CHLORIDE 0.45% 1000 ML 1,000 ML IV SCH ×2 (08:34→21:36)
[2020-10-17] MEDS: MULTIVITAMINS,THER W-MINERALS TAB PO SCH (09:07)
[2020-10-17] MEDS: FOLIC ACID 1 MG TAB PO SCH (09:07)
[2020-10-17] MEDS: THIAMINE 100 MG TAB PO SCH (09:07)
[2020-10-17] MEDS ORDERED: carvediloL 12.5 MG TAB PO SCH (10:00)
--- NOTE | 2020-10-17 10:39 | Electrocardiograph Report ---
[facility] Test Date: 2020-10-17 Test Time: 01:54:04 Pat Name: EMIR BAEZ Department: Room: A453 1 Gender: M [employer] Intern: TAMIKA : 1965 Requested By: JOHANNA STARKS Order Number: [id number] Reading MD: Orestes Pabon Measurements Intervals [place] Rate: 141 P: [place]: QRS: 258 QRSD: 101 T: 6 QT: 364 QTc: 558 Interpretive Statements Atrial flutter with 2:1 AV block Left anterior fascicular block Repol abnrm suggests ischemia, inferior leads Prolonged QT interval No previous ECG available for comparison Electronically Signed On 10-17-2020 10:39:05 EDT by Orestes Pabon
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
[2020-10-17] MEDS ORDERED: LORazepam 2 MG/ML VIAL IV PRN ×3 (11:21)
--- NOTE | 2020-10-17 16:12 | Event Note ---
Date: 10/17/20 Patient seen and examined, this is the second visit after midnight Patient admitted for chronic back pain and noted to be in atrial flutter in the ER Consulted cardiology and recommended to use diltiazem CD 240 mg daily for paroxysmal atrial flutter. for chronic oral anticoagulation therapy will be initiated with Eliquis 5 mg twice daily. Ordered for echocardiogram for left ventricular function assessment and assessment of left atrial size. Continue current management and plan as dictated in HPI
--- NOTE | 2020-10-17 16:28 | Event Note ---
Date: 10/17/20 came to see patient this afternoon but was off the floor for renal ultrasound. Will follow up tomorrow. Patient is being evaluated for acute kidney injury. Renal function has been reviewed and has shown some slow improvement over the last 24 hours. He is on continuous IV fluids per nursing staff which I would continue at this time. We will follow up on the results of the renal ultrasound along with urine electrolytes and urine analysis studies that have already ordered. Will follow up tomorrow.
[2020-10-17] MEDS: APIXABAN 5 MG TAB PO SCH ×2 (18:07→21:38)
[2020-10-17] MEDS: dilTIAZem CD 240 MG CAP PO SCH (21:36)
[2020-10-18] MEDS: SODIUM CHLORIDE 0.45% 1000 ML 1,000 ML IV SCH ×2 (06:35→15:37)
[2020-10-18] MEDS: ASPIRIN EC 81 MG TAB PO SCH (09:10)
[2020-10-18] MEDS: APIXABAN 5 MG TAB PO SCH ×2 (09:11→21:51)
[2020-10-18] MEDS: THIAMINE 100 MG TAB PO SCH (09:11)
[2020-10-18] MEDS: MULTIVITAMINS,THER W-MINERALS TAB PO SCH (09:11)
[2020-10-18] MEDS: dilTIAZem CD 240 MG CAP PO SCH (09:11)
[2020-10-18] MEDS: FOLIC ACID 1 MG TAB PO SCH (09:11)
[2020-10-18] MEDS: PANTOPRAZOLE 40 MG TAB PO SCH (09:14)
--- NOTE | 2020-10-18 09:50 | Progress Note ---
<KENNETH CHICAS - Last Filed: 10/18/20 09:50> Assessment and Plan - Patient Problems (1) Atrial flutter Status: Acute Qualifiers: Plan to address problem: Atrial flutter, uncertain duration TSH 3.18 An echocardiogram will be done for LVEF assessment. Continue Diltiazem. Will add Metoprolol for optimal rate control. Continue Eliquis for oral anticoagulation. Subjective Date of service: 10/18/20 Interval history: Patient is resting in bed and appears comfortable. No cardiac complaints. Periods of rapid atrial flutter on telemetry this morning. Objective Vital Signs Temp Pulse Pulse Resp BP Pulse Ox 10/18/20 09:42 136 H 18 10/18/20 09:11 93 H 130/96 10/18/20 08:43 97.5 F L 93 H 18 130/96 96 10/18/20 04:09 98.0 F 72 18 146/115 96 10/17/20 23:50 98.0 F 60 18 156/94 92 10/17/20 20:23 86 10/17/20 19:01 97.9 F 55 L 18 142/88 95 10/17/20 11:22 145 H - Physical Examination General: No Apparent Distress HEENT: Positive: PERRL Neck: Positive: trachea midline Cardiac: Positive: irregularly irregular Lungs: Positive: Decreased Breath Sounds Neuro: Positive: Grossly Intact Extremities: Absent: edema <HOOD SANTOS - Last Filed: 10/22/20 15:33> Subjective Interval history: I SAW THIS PT & AGREE WITH THE Dx & Tx PLAN.
[2020-10-18] MEDS ORDERED: METOPROLOL TARTRATE 50 MG TAB PO SCH (10:00)
[2020-10-18] MEDS ORDERED: ASPIRIN EC 325 MG TAB PO SCH (10:00)
[2020-10-18] MEDS: METOPROLOL TARTRATE 50 MG TAB PO SCH ×3 (10:09→21:51)
[2020-10-18 10:26] LABS: BUN/Creatinine Ratio 18; Blood Urea Nitrogen 20 mg/dL (9-20); Calcium 8.9 mg/dL (8.4-10.2); Hemolysis Index 20
--- NOTE | 2020-10-18 10:27 | Consultation ---
History of Present Illness - Reason for Consult acute renal failure - History of Present Illness Very pleasant 54-year-old -[place] male with a past medical history of hypertension and diabetes, along with a history of chronic low back pain, presented to the emergency room department with worsening low back pain. Was found to have labs concerning for acute kidney injury for which nephrology was c onsulted. Patient admits that over the past several months secondary to his worsening chronic low back pain he has used multiple doses of NSAIDs daily which includes at least 3-4 ibuprofens along with naproxen. Apparently this had been going on for the last several months and has gotten particularly worse over the last couple of weeks prior to him coming to the emergency department. He sees his primary care physician at the [place] and per patient has never been told of any prior renal insufficiency or chronic kidney disease. Past History Past Medical History: arthritis, diabetes, hypertension, hyperlipidemia, other (chronic back pain) Social history: alcohol abuse (occasional) Medications and Allergies Allergies Allergy/AdvReac Type Severity Reaction Status Date / Time lisinopril Allergy Angioedema Verified 11/12/14 19:57 tramadol Allergy Hives Verified 04/12/19 02:09 Home Medications Medication Instructions Recorded Confirmed Last Taken Type Pantoprazole [Protonix TAB] 40 mg PO BID@0800,2200 #60 tablet 12/02/14 10/17/20 02/25/19 Rx 40 mg Potassium Chloride [K-Dur] 10 meq PO QDAY #30 tablet 12/02/14 10/17/20 02/25/19 Rx 10 meq Thiamine [Vitamin B-1] 100 mg PO QDAY #30 tablet 12/02/14 10/17/20 02/25/19 Rx 100 mg Melatonin [Melatonin 5MG TAB] 5 mg PO QHS #30 tablet 02/28/19 10/17/20 Unknown Rx Multivitamin Tab W-MINERAL 1 each PO QDAY #30 tablet 02/28/19 10/17/20 Unknown Rx [Multiple Vitamin/Mineral (Theragran M)] Thiamine [Vitamin B-1] 100 mg PO QDAY #30 tablet 02/28/19 10/17/20 Unknown Rx carvediloL [Coreg] 12.5 mg PO BID #60 tablet 02/28/19 10/17/20 Unknown Rx Gabapentin [Neurontin] 300 mg PO Q8HR 10/17/20 10/17/20 Unknown History Pravastatin Sodium [Pravastatin] 10 mg PO QHS 10/17/20 10/17/20 Unknown History amLODIPine [Norvasc] 5 mg PO DAILY 10/17/20 10/17/20 Unknown History hydroCHLOROthiazide [HCTZ] 25 mg PO QDAY 10/17/20 10/17/20 Unknown History Active Meds: Active Medications Acetaminophen (Acetaminophen 325 Mg Tab) 650 mg PO Q4H PRN PRN Reason: Pain MILD(1-3)/Fever >100.5/VAUGHN Apixaban (Apixaban 5 Mg Tab) 5 mg PO Q12HR [facility]; Protocol Last Admin: 10/18/20 09:11 Dose: 5 mg Documented by: Aspirin (Aspirin Ec 81 Mg Tab) 81 mg PO QDAY [facility] Last Admin: 10/18/20 09:10 Dose: 81 mg Documented by: Atorvastatin Calcium (Atorvastatin 40 Mg Tab) 40 mg PO QHS [facility] Last Admin: 10/17/20 21:38 Dose: 40 mg Documented by: Diltiazem HCl (Diltiazem Cd 240 Mg Cap) 240 mg PO QDAY [facility] Last Admin: 10/18/20 09:11 Dose: 240 mg Documented by: Folic Acid (Folic Acid 1 Mg Tab) 1 mg PO QDAY [facility] Last Admin: 10/18/20 09:11 Dose: 1 mg Documented by: Hydralazine HCl (Hydralazine 20 Mg/1 Ml Inj) 10 mg IV Q6H PRN PRN Reason: htn Sodium Chloride (Nacl 0.45% 1000 Ml) 1,000 mls @ 100 mls/hr IV DIRECT [facility] Last Admin: 10/18/20 06:35 Dose: 100 mls/hr Documented by: Lorazepam (Lorazepam 2 Mg/Ml Vial) 2 mg IV Q1H PRN PRN Reason: CIWA-Ar 8-15 Lorazepam (Lorazepam 2 Mg/Ml Vial) 4 mg IV Q1H PRN PRN Reason: CIWA-Ar 16-25 Last Admin: 10/17/20 11:55 Dose: 4 mg Documented by: Lorazepam (Lorazepam 2 Mg/Ml Vial) 4 mg IV Q15MIN PRN PRN Reason: CIWA-Ar >25 Metoprolol Tartrate (Metoprolol Tartrate 50 Mg Tab) 50 mg PO Q8HR [facility] Last Admin: 10/18/20 10:09 Dose: 50 mg Documented by: Morphine Sulfate (Morphine 2 Mg/1 Ml Inj) 2 mg IV Q5MIN PRN PRN Reason: Chest Pain Multivitamins/Minerals (Multivitamins,Ther W-Minerals Tab) 1 each PO QDAY [facility] Last Admin: 10/18/20 09:11 Dose: 1 each Documented by: Ondansetron HCl (Ondansetron 4 Mg/2 Ml Inj) 4 mg IV Q8H PRN PRN Reason: Nausea And Vomiting Pantoprazole Sodium (Pantoprazole 40 Mg Tab) 40 mg PO QDAC [facility] Last Admin: 10/18/20 09:14 Dose: 40 mg Documented by: Sodium Chloride (Sodium Chloride 0.9% 10 Ml Flush Syringe) 10 ml IV PRN PRN PRN Reason: LINE FLUSH Last Admin: 10/17/20 09:08 Dose: 10 ml Documented by: Sodium Chloride (Sodium Chloride 0.9% 10 Ml Flush Syringe) 10 ml IV BID [facility] Last Admin: 10/18/20 09:12 Dose: 10 ml Documented by: Thiamine HCl (Thiamine 100 Mg Tab) 100 mg PO QDAY [facility] Last Admin: 10/18/20 09:11 Dose: 100 mg Documented by: Tramadol HCl (Tramadol 50 Mg Tab) 50 mg PO Q6H PRN PRN Reason: Pain, Moderate (4-6) Review of Systems All systems: negative Constitutional: fatigue, weakness Musculoskeletal: low back pain Exam - Vital Signs Vital signs: Vital Signs Pulse Resp 128 H 20 10/17/20 01:26 10/17/20 01:26 - General Appearance General appearance: well-developed, well-nourished, appears stated age, obese EENT: ATNC, PERRL Neck: Present: neck supple, trachea midline Respiratory: Clear to Ascultation, Normal Exam Heart: regular, normal heart rate Gastrointestinal: Present: normal Integumentary: no rash Neurologic: no focal deficit, alert and oriented x3 Musculoskeletal: Present: deferred Psychiatric: mood/affect appropriate, cooperative Results - Lab Results 10/17/20 01:43 10/17/20 05:47 Most recent lab results Calcium 9.3 mg/dL (8.4-10.2) 10/17/20 05:47 Magnesium 1.20 mg/dL (1.7-2.3) L 10/17/20 13:28 - Image Kidney/bladder ultrasound: pending Assessment and Plan - Patient Problems (1) Acute kidney insufficiency Current Visit: Yes Status: Acute Plan to address problem: Patient likely has suffered an acute kidney injury on underlying chronic kidney disease secondary to persistent use of NSAID over a period of months. He does have risk factors for chronic kidney disease at baseline which includes his history of hypertension, diabetes, and his chronic NSAID use. Discussed with patient the importance of avoiding nephrotoxins such as chronic NSAIDs. He is renal function is showing slight improvement over the last 48 hours with adequate IV fluid hydration. His a.m. labs are pending at this time. Renal ultrasound was ordered and is pending at this time. Urine studies are also pending at this time. Please avoid all nephrotoxins at this time. We will continue to monitor closely. (2) NSAID long-term use Current Visit: Yes Status: Acute Plan to address problem: Counseled patient on the importance of avoiding nephrotoxic his chronic NSAID use. (3) Hypertensive chronic kidney disease with stage 1 through stage 4 chronic kidney disease, or unspecified chronic kidney disease Current Visit: Yes Status: Chronic Plan to address problem: Monitor blood pressures under current regimen. (4) Type 2 diabetes mellitus with diabetic chronic kidney disease Current Visit: Yes Status: Chronic Plan to address problem: Diabetes management per primary attending. (5) Chronic back pain Current Visit: Yes Status: Acute Qualifiers: Back pain location: low back pain Back pain laterality: bilateral Sciatica presence: with sciatica Sciatica laterality: sciatica of left side Qualified Code(s): M54.42 - Lumbago with sciatica, left side; G89.29 - Other chronic pain Plan to address problem: Pain management per primary attending.
--- NOTE | 2020-10-18 12:05 | Electrocardiograph Report ---
[facility] Test Date: 2020-10-17 Test Time: 10:47:44 Pat Name: EMIR BAEZ Department: Room: A453 1 Gender: M Bottle Blower: CHRISTIAN : 1965 Requested By: BRYN GILLESPIE Order Number: [id number] Reading MD: Chuck Sue Measurements Intervals [place] Rate: 121 P: TX: QRS: -35 QRSD: 131 T: -25 QT: 338 QTc: 480 Interpretive Statements Atrial flutter with 2:1 AV block Left ventricular hypertrophy Compared to ECG 10/17/2020 01:54:04 Left ventricular hypertrophy now present Electronically Signed On 10-18-2020 12:05:09 EDT by Chuck Sue
[2020-10-18] MEDS ORDERED: POTASSIUM CHLORIDE ER 20 MEQ TAB PO NR (13:06)
--- NOTE | 2020-10-18 13:12 | Progress Note ---
Assessment and Plan -- Atrial flutter Current Visit: Yes Status: Acute Qualifiers: Atrial flutter type: unspecified Qualified Code(s): I48.92 - Unspecified atrial flutter Plan to address problem: Admit the patient to the cardiac telemetry. Started on Cardizem. Aspirin 325 mg p.o. daily and Lipitor 40 mg p.o. daily. Will order echocardiogram. We also consult cardiology for evaluation. Heparin 5000 units subcu every 8 hours -- AV block Current Visit: Yes Status: Acute Plan to address problem: Will order echocardiogram. We also consult cardiology for evaluation. Heparin 5000 units subcu every 8 hours -- Chronic back pain Current Visit: Yes Status: Acute Qualifiers: Back pain location: low back pain Back pain laterality: bilateral Sciatica presence: with sciatica Sciatica laterality: sciatica of left side Qualified Code(s): M54.42 - Lumbago with sciatica, left side; G89.29 - Other chronic pain Plan to address problem: Tylenol 650 mg p.o. every 6 hours as needed. We also put the patient on morphine 1 to 2 mg IV every 4 hours as needed. -- Accelerated hypertension Current Visit: No Status: Acute Plan to address problem: Hydralazine 10 mg IV every 6 hours as needed. We will monitor the blood pressure closely and adjust medication as needed. We also consult cardiology for further evaluation -- Acute renal failure likely vasomotor nephropathy Current Visit: No Status: Acute Plan to address problem: Half-normal saline at the rate of 100 cc/h. Avoid nephrotoxic drug. We will consult nephrology for evaluation. Repeat CBC BMP in the morning --History of alcohol abuse Last drink was 4 days ago before admission, monitor for alcohol withdrawal, placed on [facility] protocol Continue folic acid and thiamine --Hypokalemia and hypomagnesemia, replete electrolytes and monitor clinically, repeat BMP in the morning -- DVT prophylaxis Current Visit: Yes Status: Acute Plan to address problem: Heparin 5000 units subcu every 8 hours for DVT prophylaxis. Protonix 40 mg p.o. daily for GI prophylaxis. Patient is a full code Daily clinical course; 10/18: Heart rate remains elevated at 130-140s, added metoprolol for better rate control along with Cardizem. Started on Eliquis, monitor for alcohol withdrawal, follow clinically Subjective Date of service: 10/18/20 Interval history: Patient seen and examined. Medical records and medication list reviewed. No acute event overnight noted by the RN. Patient denies any chest pain or difficulty breathing. Patient is tolerating diet. Heart rate in 130s today Discussed plan of care at bedside with patient. Objective - Exam Narrative Exam: GENERAL: well-developed and morbidly obese -[place] male lying on bed appeared to be in no discomfort. HEENT: Normocephalic. Atraumatic. No conjunctival congestion or icterus. Patient has moist mucous membranes. NECK: Supple. Trachea midline. CHEST/LUNGS: Clear to auscultated bilaterally, breathing nonlabored. No wheezes crackles or rhonchi. HEART/CARDIOVASCULAR: Tachycardic. S1 and S2 positive. ABDOMEN: Abdomen is soft, nontender. Patient has normal bowel sounds. SKIN: There is no rash. Warm and dry. NEURO: No focal motor deficit. Follows command. MUSCULOSKELETAL: No joint effusion or tenderness. EXTRIMITY: No edema, no cyanosis or clubbing. PSYCH: Cooperative. - Constitutional Vitals: Vital Signs - 12hr 10/18/20 10/18/20 10/18/20 04:09 07:15 08:43 Temperature 98.0 F 97.5 F L Pulse Rate 72 100 H 93 H Pulse Rate [ From Monitor] Respiratory 18 18 Rate Blood Pressure 146/115 130/96 O2 Sat by Pulse 96 96 Oximetry 10/18/20 10/18/20 10/18/20 09:11 09:42 10:09 Temperature Pulse Rate 93 H 140 H Pulse Rate [ 136 H From Monitor] Respiratory 18 Rate Blood Pressure 130/96 130/96 O2 Sat by Pulse Oximetry - Labs CBC & Chem 7: 10/17/20 01:43 10/19/20 05:26 Labs: Abnormal lab results 10/17/20 10/18/20 Range/Units 13:28 09:48 Sodium 135 L (137-145) mmol/L Potassium 3.0 L (3.6-5.0) mmol/L Chloride 95.1 L (98-107) mmol/L Glucose 164 H (75-100) mg/dL Magnesium 1.20 L (1.7-2.3) mg/dL HEART Score - HEART Score Troponin: Troponin T < 0.010 ng/mL (0.00-0.029) 10/17/20 13:28
[2020-10-18] MEDS ORDERED: MAGNESIUM SULFATE 2 GM/50 ML BAG IV ONE (15:00)
--- NOTE | 2020-10-18 18:46 | Ultrasound Report ---
Renal ultrasound INDICATION: Acute renal failure FINDINGS: Both kidneys measure about 14 cm in length. No cyst, mass or hydronephrosis identified. IMPRESSION: No acute findings. Signer Name: Frantz Melendez MD Signed: 10/18/2020 6:42 PM Workstation Name: [id number]
[2020-10-18 22:44] LABS: Bilirubin,Urine NEG (Negative); Blood,Urine NEG (Negative); Chloride, Urine 39.7 mmolL (110-250); Color,Urine Yellow (Yellow); Creatinine,Urine 181.3 mg/dL (0.1-20.0); RBC,Urine < 1.0 /HPF (0.0-6.0)
[2020-10-19 06:27] LABS: BUN/Creatinine Ratio 15; Blood Urea Nitrogen 17 mg/dL (9-20); Calcium 8.9 mg/dL (8.4-10.2); Hemolysis Index 9
[2020-10-19] MEDS: METOPROLOL TARTRATE 50 MG TAB PO SCH (07:34)
[2020-10-19] MEDS: THIAMINE 100 MG TAB PO SCH (09:07)
[2020-10-19] MEDS: MULTIVITAMINS,THER W-MINERALS TAB PO SCH (09:07)
[2020-10-19] MEDS: dilTIAZem CD 240 MG CAP PO SCH ×2 (09:07→09:33)
[2020-10-19] MEDS: PANTOPRAZOLE 40 MG TAB PO SCH (09:07)
[2020-10-19] MEDS: ASPIRIN EC 81 MG TAB PO SCH (09:07)
[2020-10-19] MEDS: APIXABAN 5 MG TAB PO SCH (09:07)
[2020-10-19] MEDS: FOLIC ACID 1 MG TAB PO SCH (09:08)
[2020-10-19] MEDS ORDERED: POTASSIUM CHLORIDE ER 20 MEQ TAB PO SCH (09:30)
--- NOTE | 2020-10-19 09:46 | Progress Note ---
Assessment and Plan - Patient Problems (1) Acute kidney insufficiency Current Visit: Yes Status: Acute Plan to address problem: Patient likely has suffered an acute kidney injury on underlying chronic kidney disease secondary to persistent use of NSAID over a period of months. He does have risk factors for chronic kidney disease at baseline which includes his history of hypertension, diabetes, and his chronic NSAID use. Discussed with patient the importance of avoiding nephrotoxins such as chronic NSAIDs. He is renal function has now shown improvement essentially back to baseline. Would recommend that he follows up with us in 1-2 weeks post discharge. (2) NSAID long-term use Current Visit: Yes Status: Acute Plan to address problem: Counseled patient on the importance of avoiding nephrotoxic his chronic NSAID use. (3) Hypertensive chronic kidney disease with stage 1 through stage 4 chronic kidney disease, or unspecified chronic kidney disease Current Visit: Yes Status: Chronic Plan to address problem: Monitor blood pressures under current regimen. (4) Type 2 diabetes mellitus with diabetic chronic kidney disease Current Visit: Yes Status: Chronic Plan to address problem: Diabetes management per primary attending. (5) Chronic back pain Current Visit: Yes Status: Acute Qualifiers: Back pain location: low back pain Back pain laterality: bilateral Sciatica presence: with sciatica Sciatica laterality: sciatica of left side Qualified Code(s): M54.42 - Lumbago with sciatica, left side; G89.29 - Other chronic pain Plan to address problem: Pain management per primary attending. Subjective Date of service: 10/19/20 Interval history: No acute complaints. Labs reviewed, and renal function showing improvement. Objective - Vital Signs Vital signs: Vital Signs - 12hr 10/18/20 10/19/20 10/19/20 23:05 01:49 05:26 Temperature 99.4 F 98.3 F Pulse Rate 88 85 Respiratory 18 20 20 Rate Blood Pressure 138/91 130/95 O2 Sat by Pulse 93 92 Oximetry 10/19/20 10/19/20 09:04 09:33 Temperature 98.9 F Pulse Rate 101 H 101 H Respiratory 20 Rate Blood Pressure 144/88 144/88 O2 Sat by Pulse 94 Oximetry - General Appearance General appearance: well-developed, well-nourished, appears stated age EENT: ATNC, PERRL Neck: no JVD, no thyromegaly Respiratory: Present: Clear to Ascultation Cardiology: regular, normal heart rate Gastrointestinal: normal, normoactive bowel sounds Integumentary: no rash Neurologic: no focal deficit, alert and oriented x3 Musculoskeletal: deferred Psychiatric: cooperative - Lab 10/17/20 01:43 10/19/20 05:26 Most recent lab results Calcium 8.9 mg/dL (8.4-10.2) 10/19/20 05:26 Phosphorus 2.00 mg/dL (2.5-4.5) L 10/19/20 05:26 Magnesium 1.60 mg/dL (1.7-2.3) L 10/19/20 05:26 Urine Creatinine 181.3 mg/dL (0.1-20.0) H 10/18/20 22:15 Urine Sodium 64 mmol/L 10/18/20 22:15 - Allied health notes Allied health notes reviewed: nursing Medications & Allergies - Medications Allergies/Adverse Reactions: Allergies lisinopril Allergy (Verified 11/12/14 19:57) Angioedema tramadol Allergy (Verified 04/12/19 02:09) Hives Home Medications: Home Medications Medication Instructions Recorded Confirmed Last Taken Type Pantoprazole [Protonix TAB] 40 mg PO BID@0800,2200 #60 tablet 12/02/14 10/17/20 02/25/19 Rx 40 mg Potassium Chloride [K-Dur] 10 meq PO QDAY #30 tablet 12/02/14 10/17/20 02/25/19 Rx 10 meq Thiamine [Vitamin B-1] 100 mg PO QDAY #30 tablet 12/02/14 10/17/20 02/25/19 Rx 100 mg Melatonin [Melatonin 5MG TAB] 5 mg PO QHS #30 tablet 02/28/19 10/17/20 Unknown Rx Multivitamin Tab W-MINERAL 1 each PO QDAY #30 tablet 02/28/19 10/17/20 Unknown Rx [Multiple Vitamin/Mineral (Theragran M)] Thiamine [Vitamin B-1] 100 mg PO QDAY #30 tablet 02/28/19 10/17/20 Unknown Rx carvediloL [Coreg] 12.5 mg PO BID #60 tablet 02/28/19 10/17/20 Unknown Rx Gabapentin [Neurontin] 300 mg PO Q8HR 10/17/20 10/17/20 Unknown History Pravastatin Sodium [Pravastatin] 10 mg PO QHS 10/17/20 10/17/20 Unknown History amLODIPine [Norvasc] 5 mg PO DAILY 10/17/20 10/17/20 Unknown History hydroCHLOROthiazide [HCTZ] 25 mg PO QDAY 10/17/20 10/17/20 Unknown History Active Medications: Generic Name Dose Route Start Last Admin Trade Name Freq PRN Reason Stop Dose Admin Acetaminophen 650 mg 10/17/20 05:48 Acetaminophen 325 Mg Tab PO Q4H PRN Pain MILD(1-3)/Fever >100.5/VAUGHN Apixaban 5 mg 10/17/20 12:00 10/19/20 09:07 Apixaban 5 Mg Tab PO 5 mg Q12HR [facility] Administration Protocol Aspirin 81 mg 10/18/20 10:00 10/19/20 09:07 Aspirin Ec 81 Mg Tab PO 81 mg QDAY [facility] Administration Atorvastatin Calcium 40 mg 10/17/20 22:00 10/18/20 21:51 Atorvastatin 40 Mg Tab PO 40 mg QHS [facility] Administration Diltiazem HCl 240 mg 10/17/20 12:00 10/19/20 09:33 Diltiazem Cd 240 Mg Cap PO Not Given QDAY [facility] Folic Acid 1 mg 10/17/20 10:00 10/19/20 09:08 Folic Acid 1 Mg Tab PO 1 mg QDAY [facility] Administration Hydralazine HCl 10 mg 10/17/20 05:35 Hydralazine 20 Mg/1 Ml Inj IV Q6H PRN htn Sodium Chloride 1,000 mls @ 100 mls/hr 10/17/20 06:00 10/18/20 15:37 Nacl 0.45% 1000 Ml IV 100 mls/hr DIRECT [facility] Administration Magnesium Sulfate 2 gm in 50 mls @ 25 mls/hr 10/19/20 10:00 Magnesium Sulfate 2gm/50ml IV 10/19/20 11:59 ONCE ONE Potassium Phosphate 30 mmol/ 510 mls @ 85 mls/hr 10/19/20 10:00 Sodium Chloride IV 10/19/20 15:59 ONCE ONE Lorazepam 2 mg 10/17/20 11:21 Lorazepam 2 Mg/Ml Vial IV Q1H PRN CIWA-Ar 8-15 Lorazepam 4 mg 10/17/20 11:21 10/17/20 11:55 Lorazepam 2 Mg/Ml Vial IV 4 mg Q1H PRN Administration CIWA-Ar 16-25 Lorazepam 4 mg 10/17/20 11:21 Lorazepam 2 Mg/Ml Vial IV Q15MIN PRN CIWA-Ar >25 Metoprolol Tartrate 50 mg 10/18/20 10:00 10/19/20 07:34 Metoprolol Tartrate 50 Mg Tab PO Not Given Q8HR [facility] Morphine Sulfate 2 mg 10/17/20 05:29 Morphine 2 Mg/1 Ml Inj IV Q5MIN PRN Chest Pain Multivitamins/Minerals 1 each 10/17/20 10:00 10/19/20 09:07 Multivitamins,Ther W-Minerals Tab PO 1 each QDAY [facility] Administration Ondansetron HCl 4 mg 10/17/20 05:48 Ondansetron 4 Mg/2 Ml Inj IV Q8H PRN Nausea And Vomiting Pantoprazole Sodium 40 mg 10/17/20 07:30 10/19/20 09:07 Pantoprazole 40 Mg Tab PO 40 mg QDAC [facility] Administration Potassium Chloride 40 meq 10/19/20 09:30 10/19/20 09:14 Potassium Chloride Er 20 Meq Tab PO 10/19/20 11:30 40 meq ONCE [facility] Administration Sodium Chloride 10 ml 10/17/20 05:29 10/17/20 09:08 Sodium Chloride 0.9% 10 Ml Flush Syringe IV 10 ml PRN PRN Administration LINE FLUSH Sodium Chloride 10 ml 10/17/20 10:00 10/19/20 09:08 Sodium Chloride 0.9% 10 Ml Flush Syringe IV 10 ml BID [facility] Administration Thiamine HCl 100 mg 10/17/20 10:00 10/19/20 09:07 Thiamine 100 Mg Tab PO 100 mg QDAY [facility] Administration Tramadol HCl 50 mg 10/17/20 05:29 Tramadol 50 Mg Tab PO Q6H PRN Pain, Moderate (4-6)
[2020-10-19] MEDS ORDERED: MAGNESIUM SULFATE 2 GM/50 ML BAG IV ONE (10:00)
[2020-10-19] MEDS ORDERED: POTASSIUM PHOSPHATE 30 MMOL in SODIUM CHLORIDE 0.9% 500 ML 500 ML IV ONE (10:00)
--- NOTE | 2020-10-19 10:06 | Progress Note ---
Assessment and Plan - Patient Problems (1) Atrial flutter Current Visit: Yes Status: Acute Qualifiers: Qualified Code(s): I48.92 - Unspecified atrial flutter Plan to address problem: Atrial flutter, uncertain duration TSH 3.18 An echocardiogram demonstrates normal left ventricular systolic function, EF 50-60%. 12 second pause seen on telemetry. It is reported the patient remained asymptomatic Continue Eliquis for oral anticoagulation. Discontinue metoprolol and place a hold on Diltiazem. Will treat persistent atrial flutter with amiodarone and tentatively plan for a MALIK guided cardioversion before discharge. Subjective Date of service: 10/19/20 Interval history: Patient is resting in bed and appears comfortable. No cardiac complaints. This morning was a 12 second pause seen on telemetry. It's reported patient was alert and oriented and had no symptoms at the time of the event. Today's labs shows a magnesium of 1.6. Objective Vital Signs Temp Pulse Resp BP Pulse Ox 10/19/20 09:33 101 H 144/88 10/19/20 09:04 98.9 F 101 H 20 144/88 94 10/19/20 05:26 98.3 F 85 20 130/95 92 10/19/20 01:49 20 10/18/20 23:05 99.4 F 88 18 138/91 93 10/18/20 20:47 88 10/18/20 18:50 98.7 F 88 20 119/87 90 10/18/20 16:50 98.0 F 83 18 96/49 93 10/18/20 14:15 90 128/58 10/18/20 10:09 140 H 130/96 - Physical Examination General: No Apparent Distress HEENT: Positive: PERRL Neck: Positive: neck supple Cardiac: Positive: irregularly irregular Lungs: Positive: Decreased Breath Sounds Neuro: Positive: Grossly Intact Extremities: Absent: edema - Labs and Meds Comprehensive Metabolic Panel 10/18/20 10/19/20 Range/Units 09:48 05:26 Sodium 135 L 137 (137-145) mmol/L Potassium 3.0 L 3.3 L (3.6-5.0) mmol/L Chloride 95.1 L 99.9 (98-107) mmol/L Carbon Dioxide 29 28 (22-30) mmol/L BUN 20 17 (9-20) mg/dL Creatinine 1.1 D 1.1 (0.8-1.3) mg/dL Glucose 164 H 135 H (75-100) mg/dL Calcium 8.9 8.9 (8.4-10.2) mg/dL - Allied health notes Allied health notes reviewed: nursing
--- NOTE | 2020-10-19 12:27 | Discharge Summary ---
Providers - Providers Date of Admission: 10/17/20 05:48 Date of discharge: 10/19/20 Attending physician: LACHO GUIDRY 10/17/20 Consult to Cardiac Rehabilitation [CONS] Routine Reason For Exam: Phase I 10/17/20 05:29 Consult to Cardiology [CONS] Routine Consulting Provider: JUDITH NUÑEZ Reason For Exam: A flutter 10/17/20 05:50 Consult to Physician [CONS] Routine Comment: Consulting Provider: SABRA DOVRE Physician Instructions: Reason For Exam: adelina Hospitalization Condition: Stable Hospital course: This is a 54-year-old male with history of chronic back pain and degenerative arthritis presented to ER with complaints of severe back pain. Patient evaluated in the ER and found to have atrial flutter with heart rate of 140. Patient was admitted to telemetry and consulted cardiology. Cardiology initiated diltiazem CD 240 daily for paroxysmal atrial flutter and also initiated on Eliquis 5 mg twice daily. Patient also initiated on beta-corie for better rate control but he noted overnight telemetry with marked AV block that resulted 12-second pause. Cardiology recommended to hold diltiazem and to discontinue metoprolol. Plan was to keep him n.p.o. after midnight and complete a MALIK guided cardioversion in the morning. But patient refused to stay in the hospital and left AMA even after prolonged counseling. Cardiology was notified that patient was leaving AMA. Disposition: [id number] LEFT AGAINST MED ADVICE Final Discharge Diagnosis (Prints w/discharge instructions): Atrial flutter, AV block, chronic back pain, accelerated hypertension, acute renal failure with possible telepathy, history of alcohol abuse, morbid obesity, hypokalemia, hypomagnesemia and hypophosphatemia. Time spent for discharge: 34 minutes Core Measure Documentation - Palliative Care Palliative Care/ Comfort Measures: Not Applicable - Core Measures Any of the following diagnoses?: none Exam - Physical Exam Narrative exam: GENERAL: well-developed and morbidly obese -Mac[place] male lying on bed appeared to be in no discomfort. HEENT: Normocephalic. Atraumatic. No conjunctival congestion or icterus. Patient has moist mucous membranes. NECK: Supple. Trachea midline. CHEST/LUNGS: Clear to auscultated bilaterally, breathing nonlabored. No wheezes crackles or rhonchi. HEART/CARDIOVASCULAR: Tachycardic. S1 and S2 positive. ABDOMEN: Abdomen is soft, nontender. Patient has normal bowel sounds. SKIN: There is no rash. Warm and dry. NEURO: No focal motor deficit. Follows command. MUSCULOSKELETAL: No joint effusion or tenderness. EXTRIMITY: No edema, no cyanosis or clubbing. PSYCH: Cooperative. - Constitutional Vitals: Temp Pulse Resp BP Pulse Ox 98.9 F 94 H 20 144/88 94 10/19/20 09:04 10/19/20 10:00 10/19/20 10:00 10/19/20 09:33 10/19/20 09:04 Plan Activity: advance as tolerated Weight Bearing Status: Weight Bear as Tolerated Diet: low fat, low salt Special Instructions: other (Alcohol cessation) Additional Instructions: Repeat BMP, magnesium and phosphorus level in 1 week Follow up with: [facility] [Other] - 3-5 Days JUDITH NUÑEZ MD [Staff Physician] - 7 Days Forms: AMA Form Prescriptions: AtorvaSTATin [Lipitor] 40 mg PO QHS #30 tablet dilTIAZem CD [Cardizem CD] 240 mg PO QDAY #30 capsule
[2020-10-19] MEDS ORDERED: AMIODARONE 150 MG in DEXTROSE 5% IN WATER 97 ML IV ONE (14:00)
[2020-10-19] MEDS ORDERED: AMIODARONE 200 MG TAB PO SCH (14:00)
[2020-10-19 19:56] VITALS: BP 149/104
== END 2020-10-19 20:45 | disposition left against medical advice (07) ==
LOC: ED 22:15 → 4A 10-17 05:48
PROVIDERS: ADMIT Hospitalist; ATTEND Internal Medicine
DX: I48.92 Unspecified atrial flutter (principal); I44.30 Unspecified atrioventricular block; I12.9 Hypertensive chronic kidney disease with stage 1 through stage 4 chronic kidney disease, or unspecified chronic kidney disease; N18.9 Chronic kidney disease, unspecified; N17.9 Acute kidney failure, unspecified; E11.22 Type 2 diabetes mellitus with diabetic chronic kidney disease; M54.42 Lumbago with sciatica, left side; G89.29 Other chronic pain; J98.59 Other diseases of mediastinum, not elsewhere classified; E78.00 Pure hypercholesterolemia, unspecified; M19.90 Unspecified osteoarthritis, unspecified site; E78.5 Hyperlipidemia, unspecified; R00.0 Tachycardia, unspecified; R10.9 Unspecified abdominal pain; F32.9 Major depressive disorder, single episode, unspecified; Z79.82 Long term (current) use of aspirin; Z79.1 Long term (current) use of non-steroidal anti-inflammatories (NSAID)
CPT/HCPCS: 36415; 71045; 71250; 72100; 74176; 76770; 80048; 80053; 81001; 82436; 82570; 83735; 84100; 84132; 84300; 84439; 84443; 84484; 85025; 85379; 85610; 85730; 93005; 93306; 96361; 96365; 96366; 96367; 96368; 96375; 96376; 99285; A9270; G0378; J0282; J2060; J3475; J7030; J7040; J1885

== ENCOUNTER 2020-11-15 09:13 | Inpatient (IN) | payer MEDICARE ==
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
[2020-11-15] MEDS ORDERED: diazePAM 10 MG/2 ML SYRINGE IV ONE (11:33)
[2020-11-15] MEDS ORDERED: methylPREDNISolone Sod Succinate 125 MG/2 ML INJ IV ONE (11:33)
[2020-11-15] MEDS ORDERED: KETOROLAC 30 MG/1 ML INJ IV ONE (11:33)
[2020-11-15] MEDS ORDERED: METOPROLOL TARTRATE 5 MG/5 ML INJ IV ONE (12:15)
[2020-11-15 12:18] LABS: Basophils % (Auto) 0.2 % (0.0-1.8); Eosinophils % (Auto) 0.4 % (0.0-4.3); Hemoglobin 14.1 gm/dl (11.8-15.2); Lymphocytes # (Auto) 1.5 K/mm3 (1.2-5.4); Lymphocytes % (Auto) 13.8 % (13.4-35.0); Mean Corpuscular HGB Conc 34 % (32-34); Mean Corpuscular Volume 91 fl (84-94); Monocytes # (Auto) 0.9 K/mm3 (0.0-0.8); Platelet Count 129 K/mm3 (140-440); Red Blood Count 4.61 M/mm3 (3.65-5.03); Red Cell Distribution Width 15.1 % (13.2-15.2)
[2020-11-15] MEDS ORDERED: ZIPRASIDONE MESYLATE 20 MG VIAL IM ONE ×2 (12:41→12:46)
[2020-11-15] MEDS ORDERED: THIAMINE 100 MG, FOLIC ACID 1 MG, MULTIPLE VITAMIN INJ, ADULT 10 ML in SODIUM CHLORIDE ... IV ONE (13:00)
[2020-11-15 13:03] LABS: Calcium 8.1 mg/dL (8.4-10.2)
[2020-11-15] MEDS ORDERED: LORazepam 2 MG/ML VIAL IV PRN (13:09)
[2020-11-15] MEDS ORDERED: ACETAMINOPHEN 325 MG TAB PO PRN (22:24)
[2020-11-15] MEDS ORDERED: MORPHINE 2 MG/1 ML INJ IV PRN (22:24)
[2020-11-15] MEDS ORDERED: METOCLOPRAMIDE 10 MG/2 ML INJ IV PRN (22:24)
[2020-11-15] MEDS ORDERED: ONDANSETRON 4 MG/2 ML INJ IV PRN (22:24)
[2020-11-15] MEDS ORDERED: oxyCODONE /ACETAMINOPHEN 5-325MG TAB PO PRN (22:24)
[2020-11-15] MEDS: D5W/0.9% NACL 1,000 ML IV SCH (23:34)
[2020-11-16 04:28] LABS: Hematocrit 38.8 % (35.5-45.6); Hemoglobin 13.1 gm/dl (11.8-15.2); Lymphocytes # (Auto) 1.7 K/mm3 (1.2-5.4); Lymphocytes % (Auto) 16.9 % (13.4-35.0); Mean Corpuscular HGB Conc 34 % (32-34); Mean Corpuscular Volume 92 fl (84-94); Monocytes # (Auto) 0.5 K/mm3 (0.0-0.8); Monocytes % (Auto) 5.3 % (0.0-7.3); Platelet Count 111 K/mm3 (140-440); Red Blood Count 4.22 M/mm3 (3.65-5.03); Red Cell Distribution Width 15.1 % (13.2-15.2)
[2020-11-16 04:35] LABS: Alanine Aminotransferase 22 units/L (7-56); Albumin 3.7 g/dL (3.9-5); BUN/Creatinine Ratio 19; Blood Urea Nitrogen 26 mg/dL (9-20); Calcium 7.8 mg/dL (8.4-10.2); Hemolysis Index 6
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
[2020-11-16] MEDS: LORazepam 2 MG/ML VIAL IV PRN ×4 (07:39→23:22)
[2020-11-16] MEDS ORDERED: GLIMEPIRIDE 4 MG TAB PO SCH (08:00)
--- NOTE | 2020-11-16 09:23 | Consultation ---
History of Present Illness Consult date: 11/16/20 History of present illness: TELENEUROLOGY IS NOT CAPABLE OF ASSESSING/DIFFERENTIATING BETWEEN LUMBAR RADICULOPATHY VS. PLEXOPATHY VS. NEUROPATHY. RECOMMEND TRANSFER TO A FACILITY WITH BEDSIDE NEUROLOGY PLEASE. Medications and Allergies Allergies Allergy/AdvReac Type Severity Reaction Status Date / Time lisinopril Allergy Angioedema Verified 11/12/14 19:57 tramadol Allergy Hives Verified 04/12/19 02:09 Home Medications Medication Instructions Recorded Confirmed Last Taken Type Pantoprazole [Protonix TAB] 40 mg PO BID@0800,2200 #60 tablet 12/02/14 11/15/20 02/25/19 Rx 40 mg Potassium Chloride [K-Dur] 10 meq PO QDAY #30 tablet 12/02/14 11/15/20 02/25/19 Rx 10 meq Thiamine [Vitamin B-1] 100 mg PO QDAY #30 tablet 12/02/14 11/15/20 02/25/19 Rx 100 mg Melatonin [Melatonin 5MG TAB] 5 mg PO QHS #30 tablet 02/28/19 11/15/20 Unknown Rx Multivitamin Tab W-MINERAL 1 each PO QDAY #30 tablet 02/28/19 11/15/20 Unknown Rx [Multiple Vitamin/Mineral (Theragran M)] Thiamine [Vitamin B-1] 100 mg PO QDAY #30 tablet 02/28/19 11/15/20 Unknown Rx Pravastatin Sodium [Pravastatin] 10 mg PO QHS 10/17/20 11/15/20 Unknown History AtorvaSTATin [Lipitor] 40 mg PO QHS #30 tablet 10/19/20 11/15/20 Unknown Rx dilTIAZem CD [Cardizem CD] 240 mg PO QDAY #30 capsule 10/19/20 11/15/20 Unknown Rx Active Meds: Active Medications Acetaminophen (Acetaminophen 325 Mg Tab) 650 mg PO Q4H PRN PRN Reason: Pain MILD(1-3)/Fever >100.5/VAUGHN Diltiazem HCl (Diltiazem Cd 240 Mg Cap) 240 mg PO QDAY DIAMOND Glimepiride (Glimepiride 4 Mg Tab) 4 mg PO QDDIAB DIAMOND Heparin Sodium (Porcine) (Heparin 5,000 Unit/1 Ml Vial) 5,000 unit SUB-Q Q12HR DIAMOND Dextrose/Sodium Chloride (D5ns) 1,000 mls @ 100 mls/hr IV DIRECT DIAMOND Last Admin: 11/15/20 23:34 Dose: 100 mls/hr Documented by: Insulin Human Lispro (Insulin Lispro 100 Unit/Ml) 0 unit SUB-Q ACHS DIAMOND; Protocol Lorazepam (Lorazepam 2 Mg/Ml Vial) 2 mg IV Q1HR PRN PRN Reason: CIWA-Ar 8-15 Last Admin: 11/16/20 07:39 Dose: 2 mg Documented by: Lorazepam (Lorazepam 2 Mg/Ml Vial) 4 mg IV Q1HR PRN PRN Reason: CIWA-Ar 16-25 Melatonin (Melatonin 5 Mg Tab) 5 mg PO QHS [facility] Metoclopramide HCl (Metoclopramide 10 Mg/2 Ml Inj) 5 mg IV Q6H PRN PRN Reason: Nausea And Vomiting Morphine Sulfate (Morphine 2 Mg/1 Ml Inj) 2 mg IV Q4H PRN PRN Reason: Pain, Moderate (4-6) Multivitamins/Minerals (Multivitamins,Ther W-Minerals Tab) 1 each PO QDAY [facility] Ondansetron HCl (Ondansetron 4 Mg/2 Ml Inj) 4 mg IV Q8H PRN PRN Reason: Nausea And Vomiting Oxycodone/Acetaminophen (Oxycodone /Acetaminophen 5-325mg Tab) 1 tab PO Q6H PRN PRN Reason: Pain, Moderate (4-6) Last Admin: 11/15/20 23:32 Dose: 1 tab Documented by: Pantoprazole Sodium (Pantoprazole 40 Mg Tab) 40 mg PO BID@0800,2200 [facility] Potassium Chloride (Potassium Chloride Er 10 Meq Tab) 10 meq PO QDAY [facility] Pravastatin Sodium (Pravastatin 20 Mg Tab) 10 mg PO QHS [facility] Sodium Chloride (Sodium Chloride 0.9% 10 Ml Flush Syringe) 10 ml IV BID [facility] Last Admin: 11/15/20 23:33 Dose: 10 ml Documented by: Sodium Chloride (Sodium Chloride 0.9% 10 Ml Flush Syringe) 10 ml IV PRN PRN PRN Reason: LINE FLUSH Thiamine HCl (Thiamine 100 Mg Tab) 100 mg PO QDAY [facility] Physical Examination - Vital Signs Vital Signs: Vital Signs Pulse Resp BP Pulse Ox 107 H 17 137/121 98 11/15/20 09:26 11/15/20 09:26 11/15/20 09:26 11/15/20 09:26 Results - Laboratory Findings CBC and BMP: 11/16/20 03:58 11/16/20 03:58 Abnormal Lab Findings: Abnormal Labs 11/15/20 11/15/20 11/15/20 11:39 11:39 20:55 Plt Count 129 L [place] % (Auto) 8.0 H [place] # (Auto) 0.9 H Seg Neutrophils % 77.6 H Seg Neutrophils # 8.3 H Potassium 3.5 L BUN Creatinine 1.8 H Glucose 143 H POC Glucose 267 H Hemoglobin A1c Calcium 8.1 L Magnesium Ammonia Albumin 11/15/20 11/15/20 11/15/20 22:43 22:43 22:43 Plt Count [place] % (Auto) [place] # (Auto) Seg Neutrophils % Seg Neutrophils # Potassium BUN Creatinine Glucose POC Glucose Hemoglobin A1c 6.8 H Calcium Magnesium 1.10 L Ammonia 19.0 L Albumin 11/16/20 11/16/20 03:58 03:58 Plt Count 111 L [place] % (Auto) [place] # (Auto) Seg Neutrophils % 77.8 H Seg Neutrophils # Potassium 3.4 L BUN 26 H Creatinine 1.4 H Glucose 203 H POC Glucose Hemoglobin A1c Calcium 7.8 L Magnesium Ammonia Albumin 3.7 L Assessment and Plan TELENEUROLOGY IS NOT CAPABLE OF ASSESSING/DIFFERENTIATING BETWEEN LUMBAR RADICULOPATHY VS. PLEXOPATHY VS. NEUROPATHY. RECOMMEND TRANSFER TO A FACILITY WITH BEDSIDE NEUROLOGY PLEASE.
--- NOTE | 2020-11-16 09:35 | Magnetic Resonance Report ---
MR lumbar spine wo con INDICATION / CLINICAL INFORMATION: 54 years Male; MAIN. TECHNIQUE: Multisequence, multiplanar images of the lumbar spine were obtained. COMPARISON: The study is compared to the previous CT lumbar spine of 04/12/2019. FINDINGS: ALIGNMENT: There is no significant spondylolisthesis or scoliosis of the lumbar spine. VERTEBRAE:There is marked disc space narrowing with associated notable endplate changes at L4-5 and L 5-S1. There is associated mild edema at L4-5. Focal chronic endplate changes are noted anteriorly at L3-4. VISUALIZED SPINAL CORD: The motion degrades the image quality. However, the distal spinal cord appear s to demonstrate appropriate signal intensity and terminates at L1-2. [id number] ANALYSIS: L1-2: No significant abnormality. L2-3: There appears be component of congenital narrowing of the vertebral canal and epidural lipomato sis involving lower lumbar segments. Additionally, the mild disc bulge and facet joint changes contri bute to overall moderate to marked spinal stenosis at. Additionally, there is mild right neural bianca inal narrowing. L3-4: The central spondylosis contributes to marked spinal stenosis. There are small bilateral facet joint effusions. There is mild neural foraminal narrowing bilaterally. L4-5: The broad-based spondylosis also contributes to marked spinal stenosis with effacement of the l ateral recesses, greater on the right. Additionally, there is facet joint arthropathy with mild to mo derate foraminal narrowing bilaterally. L5-S1: The broad-based spondylosis mildly encroaches on the lateral recesses of bilaterally. Addition ally, there is facet joint arthropathy, greater on the right with mild foraminal narrowing. PARASPINAL SOFT TISSUES: On the previous CT, there was note of inflammatory changes involving the pos terior left paraspinal soft tissues at the L4 level. There appear to be mild residual fibrotic change s within the visualized subcutaneous soft tissues at this level. ADDITIONAL FINDINGS: No definitive epidural collections are identified. IMPRESSION: 1. There is marked spinal stenosis at L3-4 and L4-5 and, slightly less prominent, L2-3 as detailed ab ove. 2. There are advanced degenerative the disc changes at L5-S1 with mild encroachment on the lateral re cesses. Signer Name: Melecio Tenorio MD Signed: 11/16/2020 9:31 AM Workstation Name: [id number]
[2020-11-16] MEDS: PANTOPRAZOLE 40 MG TAB PO SCH ×2 (09:43→22:02)
[2020-11-16] MEDS: INSULIN LISPRO 100 UNIT/ML SUB-Q SCH ×4 (09:45→22:02)
[2020-11-16] MEDS: HEPARIN 5,000 UNIT/1 ML VIAL SUB-Q SCH ×2 (09:46→22:01)
[2020-11-16] MEDS: D5W/0.9% NACL 1,000 ML IV SCH ×2 (09:47→23:21)
[2020-11-16] MEDS ORDERED: dilTIAZem CD 240 MG CAP PO SCH (10:00)
[2020-11-16] MEDS ORDERED: POTASSIUM CHLORIDE ER 10 MEQ TAB PO SCH (10:00)
[2020-11-16] MEDS ORDERED: THIAMINE 100 MG TAB PO SCH (10:00)
[2020-11-16] MEDS ORDERED: MULTIVITAMINS,THER W-MINERALS TAB PO SCH (10:00)
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
[2020-11-16] MEDS: chlordiazePOXIDE 25 MG CAP PO SCH ×3 (11:13→20:23)
[2020-11-16] MEDS ORDERED: POTASSIUM CHLORIDE ER 20 MEQ TAB PO ONE (12:29)
[2020-11-16] MEDS: dexAMETHasone 4 MG/ML VIAL IV SCH ×2 (13:06→22:00)
[2020-11-16] MEDS ORDERED: METOPROLOL TARTRATE 5 MG/5 ML INJ IV STA (13:55)
[2020-11-16] MEDS ORDERED: LORazepam 2 MG/ML VIAL IV ONE (14:21)
--- NOTE | 2020-11-16 17:46 | Electrocardiograph Report ---
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 Electronically Signed On 11-16-2020 17:46:04 EDT by Ho Kumar
[2020-11-16] MEDS ORDERED: PRAVASTATIN 20 MG TAB PO SCH (22:00)
[2020-11-16] MEDS ORDERED: MELATONIN 5 MG TAB PO SCH (22:00)
[2020-11-17] MEDS: dexAMETHasone 4 MG/ML VIAL IV SCH (05:17)
[2020-11-17 08:04] VITALS: BP 130/94
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
--- NOTE | 2020-11-29 10:47 | Electrocardiograph Report ---
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
== END 2020-11-17 06:22 | disposition left against medical advice (07) | DRG 552 ==
LOC: ED 09:13 → 4A 13:08 → IMCU 11-16 16:36
PROVIDERS: ADMIT Internal Medicine; ATTEND Internal Medicine
DX: M48.061 Spinal stenosis, lumbar region without neurogenic claudication (principal); F10.231 Alcohol dependence with withdrawal delirium; I48.92 Unspecified atrial flutter; N17.9 Acute kidney failure, unspecified; G89.29 Other chronic pain; M54.5 Low back pain; I10 Essential (primary) hypertension; E11.9 Type 2 diabetes mellitus without complications; K21.9 Gastro-esophageal reflux disease without esophagitis; Z79.899 Other long term (current) drug therapy
CPT/HCPCS: 36415; 72148; 80048; 80053; 82140; 82150; 82962; 83036; 83735; 85025; 93005; 96365; G0378; A9270-GY; J1100; J1644; J1815; J1885; J2060; J2930; J3360; J3411; J3486; J7030; J7042

== ENCOUNTER 2021-01-03 03:03 | Inpatient (IN) | payer MEDICARE ==
[~2021-01-03 03:03] MED LIST: diazePAM 10 MG/2 ML SYRINGE ONE; dilTIAZem 25 MG/5 ML INJ ONE; dilTIAZem 30 MG TAB ONE
[2021-01-03] MEDS ORDERED: MAGNESIUM SULFATE 4 GM/100 ML BAG IV ONE (03:53)
[2021-01-03] MEDS ORDERED: MAGNESIUM OXIDE 400 MG TAB PO STA (03:53)
[2021-01-03] MEDS ORDERED: oxyCODONE /ACETAMINOPHEN 5-325MG TAB PO ONE (03:55)
[2021-01-03] MEDS ORDERED: ENOXAPARIN 100 MG/1 ML INJ SUB-Q STA (03:55)
--- NOTE | 2021-01-03 03:57 | Emergency Department Report ---
ED General Adult HPI - General Chief complaint: Back Pain/Injury Stated complaint: Back pain, medical clearance PUI?: No Source: patient, EMS (Verbal report received from emergency medical services. EMS documentation not available at time of chart dictation ), RN notes reviewed, old records reviewed Mode of arrival: Stretcher Limitations: No Limitations - History of Present Illness Initial comments: Please note that when this patient initially arrived, the medical record system was down, not available for my personal review. The patient is a 55-year-old gentleman with a history of DJD, anxiety, A. fib/flutter, supposed to be on Eliquis, obesity, who was admitted to this hospital a few months ago for rapid a flutter, offered cardioversion via MALIK, signed out AMA, also with a history of chronic back pain, had CT scan abdomen pelvis, MRI L-spine a few months ago, which did not demonstrate acute findings. Today, the patient is brought to the hospital with a complaint of nontraumatic back pain. He states the pain has been present since 1991. It is paralumbar, sharp and throbbing. He denies headache and neck pain, chest pain, he has mild abdominal cramping, with no vomiting. He endorses sweating, diaphoresis, anxiety, shakiness. He is not homicidal or suicidal. He called 911 because of the aforementioned. Police were activated, and requested emergency medical services. EMS reports that in the field, the patient was tachycardic and diaphoretic without chest pain. Initially upon arrival to this emergency room, the patient is diaphoretic, anxious, with tongue fasciculations, upper extremity tremors, and is found to be in a flutter with RVR, with a variable rate. He was medicated with Valium and diltiazem, which greatly improved his symptoms. He is not homicidal suicidal. He denies bladder or bowel retention, incontinence, saddle anesthesia, focal extremity weakness/numbness, and reports he is able to tolerate Percocet. -: year(s) Location: back Radiation: non-radiation Quality: aching Consistency: constant Improves with: rest Worsens with: movement - Related Data Home Medications Medication Instructions Recorded Confirmed Last Taken Pravastatin Sodium [Pravastatin] 10 mg PO QHS 10/17/20 11/15/20 Unknown Previous Rx's Medication Instructions Recorded Last Taken Type Pantoprazole [Protonix TAB] 40 mg PO BID@0800,2200 #60 tablet 12/02/14 02/25/19 Rx 40 mg Potassium Chloride [K-Dur] 10 meq PO QDAY #30 tablet 12/02/14 02/25/19 Rx 10 meq Thiamine [Vitamin B-1] 100 mg PO QDAY #30 tablet 12/02/14 02/25/19 Rx 100 mg Melatonin [Melatonin 5MG TAB] 5 mg PO QHS #30 tablet 02/28/19 Unknown Rx Multivitamin Tab W-MINERAL 1 each PO QDAY #30 tablet 02/28/19 Unknown Rx [Multiple Vitamin/Mineral (Theragran M)] Thiamine [Vitamin B-1] 100 mg PO QDAY #30 tablet 02/28/19 Unknown Rx AtorvaSTATin [Lipitor] 40 mg PO QHS #30 tablet 10/19/20 Unknown Rx dilTIAZem CD [Cardizem CD] 240 mg PO QDAY #30 capsule 10/19/20 Unknown Rx Allergies Allergy/AdvReac Type Severity Reaction Status Date / Time lisinopril Allergy Angioedema Verified 11/12/14 19:57 tramadol Allergy Hives Verified 04/12/19 02:09 ED Review of Systems ROS: Stated complaint: Other details as noted in HPI Constitutional: malaise, weakness, other (Denies loss of taste and smell). denies: fever Eyes: denies: eye discharge ENT: denies: epistaxis Respiratory: denies: cough Cardiovascular: palpitations. denies: chest pain Gastrointestinal: abdominal pain. denies: vomiting, hematemesis, melena, hematochezia Musculoskeletal: back pain, arthralgia, myalgia Neurological: weakness Psychiatric: anxiety. denies: homicidal thoughts, suicidal thoughts ED Past Medical Hx - Past Medical History Hx Hypertension: Yes Hx CVA: No Hx Congestive Heart Failure: No Hx Diabetes: Yes Hx Deep Vein Thrombosis: No Hx GERD: Yes Hx Liver Disease: No Hx Renal Disease: No Hx Sickle Cell Disease: No Hx Arthritis: No Hx Headaches / Migraines: No Hx Seizures: No Hx Psychiatric Treatment: Yes Hx Asthma: No Hx COPD: No Hx HIV: No Additional medical history: high cholesterol, depression, Sciatica, Foot drop on left foot - Surgical History Hx Open Heart Surgery: No Hx Pacemaker: No Hx Internal Defibrillator: No Hx Cholecystectomy: No Hx Appendectomy: No Hx Breast Surgery: No Additional Surgical History: Left rotator cuff surg x 3Left knee surg x 3. alcohol abuse - Social History Smoking Status: Never Smoker Substance Use Type: Alcohol - Medications Home Medications: Home Medications Medication Instructions Recorded Confirmed Last Taken Type Pantoprazole [Protonix TAB] 40 mg PO BID@0800,2200 #60 tablet 12/02/14 11/15/20 02/25/19 Rx 40 mg Potassium Chloride [K-Dur] 10 meq PO QDAY #30 tablet 12/02/14 11/15/20 02/25/19 Rx 10 meq Thiamine [Vitamin B-1] 100 mg PO QDAY #30 tablet 12/02/14 11/15/20 02/25/19 Rx 100 mg Melatonin [Melatonin 5MG TAB] 5 mg PO QHS #30 tablet 02/28/19 11/15/20 Unknown Rx Multivitamin Tab W-MINERAL 1 each PO QDAY #30 tablet 02/28/19 11/15/20 Unknown Rx [Multiple Vitamin/Mineral (Theragran M)] Thiamine [Vitamin B-1] 100 mg PO QDAY #30 tablet 02/28/19 11/15/20 Unknown Rx Pravastatin Sodium [Pravastatin] 10 mg PO QHS 10/17/20 11/15/20 Unknown History AtorvaSTATin [Lipitor] 40 mg PO QHS #30 tablet 10/19/20 11/15/20 Unknown Rx dilTIAZem CD [Cardizem CD] 240 mg PO QDAY #30 capsule 10/19/20 11/15/20 Unknown Rx ED Physical Exam - General Limitations: Physical Limitation General appearance: alert, anxious, in distress, obese - Head Head exam: Present: atraumatic, normocephalic - Eye Eye exam: Present: normal appearance, EOMI. Absent: nystagmus - ENT ENT exam: Present: normal exam, normal orophraynx, mucous membranes moist, normal external ear exam - Neck Neck exam: Present: normal inspection, full ROM. Absent: tenderness, meningismus - Respiratory Respiratory exam: Present: normal lung sounds bilaterally. Absent: respiratory distress, wheezes, rales, rhonchi, stridor, decreased breath sounds - Cardiovascular Cardiovascular Exam: Present: tachycardia, irregular rhythm. Absent: systolic murmur, diastolic murmur, rubs, gallop - GI/Abdominal GI/Abdominal exam: Present: soft. Absent: distended, tenderness, guarding, rebound, rigid, pulsatile mass - Rectal Rectal exam: Present: deferred - Extremities Exam Extremities exam: Present: normal inspection, full ROM, other (2+ pulses noted in the bilateral upper and lower extremities. There is no palpable cord. negative Homans sign. Muscular compartments are soft. The pelvis is stable.). Absent: pedal edema, calf tenderness - Back Exam Back exam: Present: normal inspection, paraspinal tenderness, vertebral tenderness. Absent: tenderness, CVA tenderness (R), CVA tenderness (L) - Neurological Exam Neurological exam: Present: alert, oriented X3, other (No facial droop. Tongue midline. Extraocular movements intact bilaterally. Facial sensation intact to light touch in V1, V2, V3 distribution bilaterally. 5 and a 5 strength in 4 extremities. Sensation intact to light touch in 4 extremities. No facial droop. Tongue midline. Extraocular moveme). Absent: motor sensory deficit - Psychiatric Psychiatric exam: Present: anxious. Absent: homicidal ideation, suicidal ideation - Skin Skin exam: Present: warm, dry, intact, normal color. Absent: rash ED Course Vital Signs 01/03/21 01/03/21 01/03/21 01:22 01:30 01:40 Temperature Pulse Rate 144 H 129 H Respiratory 17 Rate Blood Pressure 114/72 Blood Pressure [Right] O2 Sat by Pulse 97 94 Oximetry 01/03/21 01/03/21 01/03/21 01:50 02:00 02:10 Temperature Pulse Rate 128 H 121 H 105 H Respiratory 17 20 21 Rate Blood Pressure 106/78 106/78 105/63 Blood Pressure [Right] O2 Sat by Pulse 96 96 94 Oximetry 01/03/21 01/03/21 01/03/21 02:20 02:30 02:46 Temperature Pulse Rate 107 H 83 102 H Respiratory 16 19 19 Rate Blood Pressure 105/63 105/63 105/63 Blood Pressure [Right] O2 Sat by Pulse 99 96 100 Oximetry 01/03/21 01/03/21 01/03/21 02:50 03:00 03:10 Temperature Pulse Rate 92 H 101 H 97 H Respiratory 18 18 19 Rate Blood Pressure 136/106 136/106 139/100 Blood Pressure [Right] O2 Sat by Pulse 99 99 99 Oximetry 01/03/21 01/03/21 01/03/21 03:20 03:30 03:40 Temperature Pulse Rate 92 H 87 101 H Respiratory 19 17 18 Rate Blood Pressure 146/100 146/100 142/109 Blood Pressure [Right] O2 Sat by Pulse 99 99 99 Oximetry 01/03/21 01/03/21 01/03/21 03:50 04:00 04:10 Temperature Pulse Rate 106 H 101 H 85 Respiratory 19 17 18 Rate Blood Pressure 138/110 138/110 144/103 Blood Pressure [Right] O2 Sat by Pulse 97 98 99 Oximetry 01/03/21 01/03/21 01/03/21 04:15 04:21 04:31 Temperature Pulse Rate 95 H 96 H 84 Respiratory 18 18 16 Rate Blood Pressure 146/100 141/99 Blood Pressure 141/99 [Right] O2 Sat by Pulse 98 99 98 Oximetry 01/03/21 01/03/21 01/03/21 04:41 04:51 05:01 Temperature 99.3 F Pulse Rate 82 90 94 H Respiratory 16 17 18 Rate Blood Pressure 133/104 133/104 138/105 Blood Pressure [Right] O2 Sat by Pulse 97 98 99 Oximetry 01/03/21 01/03/21 01/03/21 05:11 05:15 05:21 Temperature 98.9 F Pulse Rate 90 82 84 Respiratory 18 22 19 Rate Blood Pressure 125/83 125/83 Blood Pressure 125/82 [Right] O2 Sat by Pulse 97 98 98 Oximetry 01/03/21 01/03/21 01/03/21 05:31 05:41 05:51 Temperature Pulse Rate 93 H 89 92 H Respiratory 17 16 17 Rate Blood Pressure 126/93 125/92 125/92 Blood Pressure [Right] O2 Sat by Pulse 98 96 100 Oximetry ED Medical Decision Making - Lab Data Result diagrams: 01/03/21 18:09 White count 10.2, hemoglobin 13.6, hematocrit 40.1, platelet count 123 Sodium 140, potassium 3.75, chloride 100.1, CO2 25, anion gap 19, BUN 17, creatinine 1.4, glucose 148, magnesium 1.0, CK 570, blood alcohol, acetaminophen, salicylates negative, TSH 5.54, free T4 1.09 Vital Signs 01/03/21 01/03/21 01/03/21 01:22 01:30 01:40 Temperature Pulse Rate 144 H 129 H Respiratory 17 Rate Blood Pressure 114/72 Blood Pressure [Right] O2 Sat by Pulse 97 94 Oximetry 01/03/21 01/03/21 01/03/21 01:50 02:00 02:10 Temperature Pulse Rate 128 H 121 H 105 H Respiratory 17 20 21 Rate Blood Pressure 106/78 106/78 105/63 Blood Pressure [Right] O2 Sat by Pulse 96 96 94 Oximetry 01/03/21 01/03/21 01/03/21 02:20 02:30 02:46 Temperature Pulse Rate 107 H 83 102 H Respiratory 16 19 19 Rate Blood Pressure 105/63 105/63 105/63 Blood Pressure [Right] O2 Sat by Pulse 99 96 100 Oximetry 01/03/21 01/03/21 01/03/21 02:50 03:00 03:10 Temperature Pulse Rate 92 H 101 H 97 H Respiratory 18 18 19 Rate Blood Pressure 136/106 136/106 139/100 Blood Pressure [Right] O2 Sat by Pulse 99 99 99 Oximetry 01/03/21 01/03/21 01/03/21 03:20 03:30 03:40 Temperature Pulse Rate 92 H 87 101 H Respiratory 19 17 18 Rate Blood Pressure 146/100 146/100 142/109 Blood Pressure [Right] O2 Sat by Pulse 99 99 99 Oximetry 01/03/21 01/03/21 01/03/21 03:50 04:00 04:10 Temperature Pulse Rate 106 H 101 H 85 Respiratory 19 17 18 Rate Blood Pressure 138/110 138/110 144/103 Blood Pressure [Right] O2 Sat by Pulse 97 98 99 Oximetry 01/03/21 01/03/21 01/03/21 04:15 04:21 04:31 Temperature Pulse Rate 95 H 96 H 84 Respiratory 18 18 16 Rate Blood Pressure 146/100 141/99 Blood Pressure 141/99 [Right] O2 Sat by Pulse 98 99 98 Oximetry 01/03/21 01/03/21 01/03/21 04:41 04:51 05:01 Temperature 99.3 F Pulse Rate 82 90 94 H Respiratory 16 17 18 Rate Blood Pressure 133/104 133/104 138/105 Blood Pressure [Right] O2 Sat by Pulse 97 98 99 Oximetry 01/03/21 01/03/21 01/03/21 05:11 05:15 05:21 Temperature 98.9 F Pulse Rate 90 82 84 Respiratory 18 22 19 Rate Blood Pressure 125/83 125/83 Blood Pressure 125/82 [Right] O2 Sat by Pulse 97 98 98 Oximetry 01/03/21 01/03/21 01/03/21 05:31 05:41 05:51 Temperature Pulse Rate 93 H 89 92 H Respiratory 17 16 17 Rate Blood Pressure 126/93 125/92 125/92 Blood Pressure [Right] O2 Sat by Pulse 98 96 100 Oximetry Lab Results 01/03/21 01/03/21 01/03/21 Range/Units 01:35 01:35 01:45 Sodium 142 (137-145) mmol/L Potassium 3.9 (3.6-5.0) mmol/L Chloride 99.4 (98-107) mmol/L Carbon Dioxide 19 L (22-30) mmol/L Anion Gap 28 mmol/L BUN 17 (9-20) mg/dL Creatinine 1.5 H (0.8-1.3) mg/dL Estimated GFR 59 ml/min BUN/Creatinine Ratio 11 % Glucose 133 H (75-100) mg/dL Calcium 9.5 (8.4-10.2) mg/dL Magnesium 1.10 L (1.7-2.3) mg/dL Total Bilirubin 0.70 (0.1-1.2) mg/dL AST 33 (5-40) units/L ALT 18 (7-56) units/L Alkaline Phosphatase 46 (35-129) units/L Total Creatine Kinase 585 H (55-170) units/L Total Protein 7.8 (6.3-8.2) g/dL Albumin 4.5 (3.9-5) g/dL Albumin/Globulin Ratio 1.4 % Urine Color Yellow (Yellow) Urine Turbidity Clear (Clear) Urine pH 7.0 (5.0-7.0) Ur Specific [place] 1.016 (1.003-1.030) Urine Protein 30 mg/dl (Negative) mg/dL Urine Glucose (UA) 50 (Negative) mg/dL Urine Ketones Neg (Negative) mg/dL Urine Blood Neg (Negative) Urine Nitrite Neg (Negative) Urine Bilirubin Neg (Negative) Urine Urobilinogen 4.0 (<2.0) mg/dL Ur Leukocyte Esterase Neg (Negative) Urine WBC (Auto) 1.0 (0.0-6.0) /HPF Urine RBC (Auto) 2.0 (0.0-6.0) /HPF U Epithel Cells (Auto) 1.0 (0-13.0) /HPF Hyaline Casts 5 /LPF Urine Mucus Few /HPF Salicylates (2.8-20.0) mg/dL Urine Opiates Screen Presumptive negative Urine Methadone Screen Presumptive negative Acetaminophen (10.0-30.0) ug/mL Ur Barbiturates Screen Presumptive negative Ur Phencyclidine Scrn Presumptive negative Ur Amphetamines Screen Presumptive negative U Benzodiazepines Scrn Presumptive negative Urine Cocaine Screen Presumptive negative U Marijuana (THC) Screen Presumptive negative Drugs of Abuse Note Disclamer Plasma/Serum Alcohol (0-0.07) % 01/03/21 01/03/21 01/03/21 Range/Units 01:45 01:45 01:45 Sodium (137-145) mmol/L Potassium (3.6-5.0) mmol/L Chloride (98-107) mmol/L Carbon Dioxide (22-30) mmol/L Anion Gap mmol/L BUN (9-20) mg/dL Creatinine (0.8-1.3) mg/dL Estimated GFR ml/min BUN/Creatinine Ratio % Glucose (75-100) mg/dL Calcium (8.4-10.2) mg/dL Magnesium (1.7-2.3) mg/dL Total Bilirubin (0.1-1.2) mg/dL AST (5-40) units/L ALT (7-56) units/L Alkaline Phosphatase (35-129) units/L Total Creatine Kinase (55-170) units/L Total Protein (6.3-8.2) g/dL Albumin (3.9-5) g/dL Albumin/Globulin Ratio % Urine Color (Yellow) Urine Turbidity (Clear) Urine pH (5.0-7.0) Ur Specific [place] (1.003-1.030) Urine Protein (Negative) mg/dL Urine Glucose (UA) (Negative) mg/dL Urine Ketones (Negative) mg/dL Urine Blood (Negative) Urine Nitrite (Negative) Urine Bilirubin (Negative) Urine Urobilinogen (<2.0) mg/dL Ur Leukocyte Esterase (Negative) Urine WBC (Auto) (0.0-6.0) /HPF Urine RBC (Auto) (0.0-6.0) /HPF U Epithel Cells (Auto) (0-13.0) /HPF Hyaline Casts /LPF Urine Mucus /HPF Salicylates < 0.3 L (2.8-20.0) mg/dL Urine Opiates Screen Urine Methadone Screen Acetaminophen 5.0 L (10.0-30.0) ug/mL Ur Barbiturates Screen Ur Phencyclidine Scrn Ur Amphetamines Screen U Benzodiazepines Scrn Urine Cocaine Screen U Marijuana (THC) Screen Drugs of Abuse Note Plasma/Serum Alcohol < 0.01 (0-0.07) % - EKG Data -: EKG Interpreted by Nh Rate: tachycardia - EKG Data 01/03/21 04:02 EKG #1, interpreted at 01: 23 a flutter, 2-1 block, rate 127 bpm, rapid conduction, left axis deviation, borderline left anterior fascicular block, QTC prolonged. Abnormal EKG. Not a STEMI. This appears to be grossly unchanged when compared to prior EKG from November 15, 2020 EKG #2, interpreted at 02: 1 5 A-flutter, ventricular rate 78, flutter rate variable, left axis deviation, LAFB, QTC prolonged, 5 1 5 ms. - Radiology Data Radiology results: report reviewed, image reviewed CT ABDOMEN AND PELVIS WITHOUT CONTRAST HISTORY: Patient complains of lower abdominal pain / Tachycardia. COMPARISON: None. TECHNIQUE: CT images of the abdomen and pelvis were obtained without administration of intravenous contrast. All CT scans at this location are performed using CT dose reduction for ALARA by means of automated exposure control. FINDINGS: Lungs/bones: Mild atelectasis in the lower lungs Abdomen/pelvis: There is diffuse fatty infiltration of the liver. The gallbladder is distended. Spleen, adrenal glands, pancreas appear normal. There is a large mass within the mid abdomen. This mass measures 10.6 x 10.0 cm. The mass is complex with fat and postcontrast internal enhancement. No bowel obstruction is seen. Degenerative changes seen within the spine. IMPRESSION: 1. 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 This mass is also seen in October 2020. The mass does have components of fat however also has more complex postcontrast internal enhancement. Given complex appearance liposarcoma cannot be excluded. MRI with contrast could be performed for further evaluation. 2. No evidence for obstruction. No renal or ureteral stone. Signer Name: Vikas Miles MD Signed: 01/03/2021 1:52 AM Workstation Name: [id number] MR lumbar spine wo con INDICATION / CLINICAL INFORMATION: 54 years Male; MAIN. TECHNIQUE: Multisequence, multiplanar images of the lumbar spine were obtained. COMPARISON: The study is compared to the previous CT lumbar spine of 04/12/2019. FINDINGS: ALIGNMENT: There is no significant spondylolisthesis or scoliosis of the lumbar spine. VERTEBRAE:There is marked disc space narrowing with associated notable endplate changes at L4-5 and L5-S1. There is associated mild edema at L4-5. Focal chronic endplate changes are noted anteriorly at L3-4. VISUALIZED SPINAL CORD: The motion degrades the image quality. However, the di stal spinal cord appears to demonstrate appropriate signal intensity and terminates at L1-2. [id number] ANALYSIS: L1-2: No significant abnormality. L2-3: There appears be component of congenital narrowing of the vertebral canal and epidural lipomatosis involving lower lumbar segments. Additionally, the mild disc bulge and facet joint changes contribute to overall moderate to marked spinal stenosis at. Additionally, there is mild right neural foraminal narrowing. L3-4: The central spondylosis contributes to marked spinal stenosis. There are small bilateral facet joint effusions. There is mild neural foraminal narrowing bilaterally. L4-5: The broad-based spondylosis also contributes to marked spinal stenosis with effacement of the lateral recesses, greater on the right. Additionally, there is facet joint arthropathy with mild to moderate foraminal narrowing bilaterally. L5-S1: The broad-based spondylosis mildly encroaches on the lateral recesses of bilaterally. Additionally, there is facet joint arthropathy, greater on the right with mild foraminal narrowing. PARASPINAL SOFT TISSUES: On the previous CT, there was note of inflammatory changes involving the posterior left paraspinal soft tissues at the L4 level. There appear to be mild residual fibrotic changes within the visualized subcutaneous soft tissues at this level. ADDITIONAL FINDINGS: No definitive epidural collections are identified. IMPRESSION: 1. There is marked spinal stenosis at L3-4 and L4-5 and, slightly less prominent, L2-3 as detailed above. 2. There are advanced degenerative the disc changes at L5-S1 with mild encroachment on the lateral recesses. Signer Name: Melecio Tenorio MD Signed: 11/16/2020 8:31 AM Workstation Name: [email or web address] - Medical Decision Making Differential diagnosis, including but not limited to: Acute on chronic back pain, alcohol withdrawal, a flutter with RVR, noncompliance, electrolyte derangement, thyroid derangement, anxiety Assessment and plan: 55-year-old gentleman, with a complaint of acute on chronic back pain, a flutter with RVR, presumably noncompliant with outpatient medications, anxiety, initially tachycardic and diaphoretic. In terms of the patient's rapid a flutter, he was started on intravenous and oral diltiazem, which improved his tachycardia. He is amenable to admission for cardiology consultation, and MALIK guided cardioversion. Start Lovenox. Replete magnesium as he is very hypomagnesemic. Patient is amenable to admission. In terms of patient's back pain, CT scan abdomen pelvis was obtained, showed chronic findings with no acute findings. Prior MRI reviewed and appreciated. He does not have any physical or clinical exam evidence of acute cord compression or cord compromise. Pain medication. Patient also medicated with banana bag, Valium, and ordered for alcohol withdrawal protocol. He is awake, alert, oriented, sober, exhibits decision- making capacity, not homicidal, not suicidal, does not meet criteria for 1013 hold or involuntary hold. Hospital physician, Dr. Bismark Romo to admit to [facility] Critical Care Time: Yes Critical care time in (mins) excluding proc time.: 45 Critical care attestation.: If time is entered above; I have spent that time in minutes in the direct care of this critically ill patient, excluding procedure time. ED Disposition Clinical Impression: Hypomagnesemia, Atrial flutter with rapid ventricular response, Acute exacerbation of chronic low back pain, Tachycardia, Chronic back pain, EtOH dependence, Obesity Disposition: DC-[id number] OP ADMIT IP TO THIS HOSP Is pt being admited?: Yes Does the pt Need Aspirin: No Condition: Serious
[2021-01-03] MEDS ORDERED: MAGNESIUM HYDROXIDE (MOM) ORAL LIQD UDC PO PRN (04:57)
[2021-01-03] MEDS ORDERED: ONDANSETRON 4 MG/2 ML INJ IV PRN (04:57)
[2021-01-03] MEDS ORDERED: DEXTROSE 50% IN WATER (25GM) 50 ML SYRINGE IV PRN (04:57)
[2021-01-03] MEDS ORDERED: ACETAMINOPHEN 325 MG TAB PO PRN (04:57)
[2021-01-03] MEDS ORDERED: diazePAM 10 MG/2 ML SYRINGE IV ONE (05:00)
[2021-01-03] MEDS ORDERED: THIAMINE 100 MG, FOLIC ACID 1 MG, MULTIPLE VITAMIN INJ, ADULT 10 ML in SODIUM CHLORIDE ... IV ONE (05:00)
[2021-01-03] MEDS ORDERED: dilTIAZem 25 MG/5 ML INJ IV ONE (05:00)
--- NOTE | 2021-01-03 05:05 | History and Physical Report ---
History of Present Illness Date of examination: 01/03/21 Date of admission: 01/03/2021 Chief complaint: Back Pain History of present illness: 55-year-old male with known history of diabetes mellitus, hypertension, history of anxiety, obesity, atrial fibrillation/atrial flutter presenting to the emergency room today with major complaints of back pain. Patient has had chronic back pain for several years. Pain has been sharp and throbbing especially in the lower back. He denies any trauma or recent fall. He denies any headache or neck pain, no fever or chills, no nausea vomiting, no abdominal pain. Patient was diaphoretic, anxious and has some shakiness which prompted him to call EMS. Upon arrival of EMS patient was found to be tachycardic and diaphoretic. He was found to be in atrial flutter with RVR. Patient had a similar presentation few months ago during which she was offered cardioversion via MALIK but he declined and signed out out AGAINST MEDICAL ADVICE. Upon arrival in the emergency room today rate was in the 140s and patient was given IV Cardizem with significant improvement in his heart rate. Work-up in the emergency room reveals hypomagnesemia. Patient has been admitted with atrial flutter, hypomagnesemia and back pain. Past History Past Medical History: arrhythmia, diabetes, GERD, hypertension, hyperlipidemia, other (Depression, sciatica, left foot drop, chronic back pain) Past Surgical History: Other (Left rotator cuff surgery, left knee surgery) Social history: alcohol abuse. denies: smoking Family history: no significant family history Medications and Allergies Allergies Allergy/AdvReac Type Severity Reaction Status Date / Time lisinopril Allergy Angioedema Verified 11/12/14 19:57 tramadol Allergy Hives Verified 04/12/19 02:09 Home Medications Medication Instructions Recorded Confirmed Last Taken Type Pantoprazole [Protonix TAB] 40 mg PO BID@0800,2200 #60 tablet 12/02/14 11/15/20 02/25/19 Rx 40 mg Potassium Chloride [K-Dur] 10 meq PO QDAY #30 tablet 12/02/14 11/15/20 02/25/19 Rx 10 meq Thiamine [Vitamin B-1] 100 mg PO QDAY #30 tablet 12/02/14 11/15/20 02/25/19 Rx 100 mg Melatonin [Melatonin 5MG TAB] 5 mg PO QHS #30 tablet 08/18/19 05/05/21 Unknown Rx Multivitamin Tab W-MINERAL 1 each PO QDAY #30 tablet 02/28/19 11/15/20 Unknown Rx [Multiple Vitamin/Mineral (Theragran M)] Thiamine [Vitamin B-1] 100 mg PO QDAY #30 tablet 02/28/19 11/15/20 Unknown Rx Pravastatin Sodium [Pravastatin] 10 mg PO QHS 10/17/20 11/15/20 Unknown History AtorvaSTATin [Lipitor] 40 mg PO QHS #30 tablet 10/19/20 11/15/20 Unknown Rx dilTIAZem CD [Cardizem CD] 240 mg PO QDAY #30 capsule 10/19/20 11/15/20 Unknown Rx Active Meds: Active Medications Diazepam (Diazepam 10 Mg/2 Ml Syringe) 5 mg IV NOW ONE Stop: 01/03/21 05:01 Diltiazem HCl (Diltiazem 25 Mg/5 Ml Inj) 15 mg IV ONCE ONE Stop: 01/03/21 05:01 Thiamine HCl 100 mg/ Folic Acid 1 mg/ Multivitamins/Minerals 10 ml/ Sodium Chloride 1,011.2 mls @ 250 mls/hr IV ONCE ONE Stop: 01/03/21 09:02 Lactated Ringer's (Lactated Ringers) 1,000 mls @ 175 mls/hr IV DIRECT DIAMOND Review of Systems Constitutional: no fever, no chills Ears, nose, mouth and throat: no nasal congestion, no sore throat Cardiovascular: palpitations, no chest pain Respiratory: no cough, no shortness of breath Gastrointestinal: no abdominal pain, no nausea, no vomiting, no diarrhea Genitourinary Male: no dysuria, no hematuria, no flank pain, no nocturia Musculoskeletal: low back pain, no neck pain Integumentary: no rash, no pruritis Neurological: no headaches, no confusion Psychiatric: anxiety, insomnia, depression Endocrine: no polydipsia, no polyuria, no nocturia Exam - Constitutional Vitals: Temp Pulse Resp BP Pulse Ox 99.3 F 95 H 18 141/99 98 01/03/21 04:41 01/03/21 04:15 01/03/21 04:15 01/03/21 04:15 01/03/21 04:15 General appearance: Present: no acute distress, obese - EENT Eyes: Present: PERRL, EOM intact. Absent: scleral icterus ENT: no hearing intact, no clear oral mucosa, no dentition normal - Neck Neck: Present: supple, normal ROM - Respiratory Respiratory effort: normal Respiratory: bilateral: CTA - Cardiovascular Rhythm: irregularly irregular Heart Sounds: Present: S1 & S2. Absent: gallop, systolic murmur, diastolic murmur, rub, click - Extremities Extremities: no ischemia, pulses intact, pulses symmetrical, No edema, normal temperature, normal color, Full ROM Peripheral Pulses: within normal limits - Abdominal General gastrointestinal: Present: soft, non-tender, non-distended, normal bowel sounds. Absent: mass - Integumentary Integumentary: Present: clear, warm, dry. Absent: rash - Musculoskeletal Musculoskeletal: strength equal bilaterally - Psychiatric Psychiatric: appropriate mood/affect, intact judgment & insight, memory intact, cooperative - Neurologic Neurologic: CNII-XII intact, no focal deficits, moves all extremities Assessment and Plan - Patient Problems (1) Atrial flutter with rapid ventricular response Current Visit: Yes Status: Acute Plan to address problem: Rate is currently controlled. Patient was given IV Cardizem and will be closely monitored on the telemetry floor. Consult placed to cardiology for further evaluation and recommendations. He had an echocardiogram in October 2020 with ejection fraction of 50 to 60%. We will check thyroid function. (2) Hypomagnesemia Current Visit: Yes Status: Acute Plan to address problem: Magnesium will be repleted and will monitor chemistry. (3) Acute exacerbation of chronic low back pain Current Visit: Yes Status: Acute Plan to address problem: Patient will be placed on analgesic medication as needed. (4) Obesity Current Visit: Yes Status: Acute Plan to address problem: Lifestyle modification encouraged. Dietary consult requested (5) EtOH dependence Current Visit: Yes Status: Chronic Plan to address problem: Patient drinks alcohol on a daily basis. We will place on CIWA protocol. (6) T2DM (type 2 diabetes mellitus) Current Visit: No Status: Acute Plan to address problem: Patient placed on sliding scale insulin. We will monitor Accu-Cheks. (7) GERD (gastroesophageal reflux disease) Current Visit: No Status: Chronic Qualifiers: Esophagitis presence: without esophagitis Qualified Code(s): K21.9 - Gastro-esophageal reflux disease without esophagitis Plan to address problem: Patient currently on proton pump inhibitor. (8) Hypertension Current Visit: No Status: Chronic Plan to address problem: We will resume routine home medications once reconciled. We will monitor vital signs closely. (9) DVT prophylaxis Current Visit: No Status: Acute Plan to address problem: Patient placed on anticoagulation with subcutaneous Lovenox. (10) Full code status Current Visit: Yes Status: Acute Plan to address problem: Patient is a full code.
[2021-01-03 06:41] LABS: Amphetamine Screen,Urine PRESUMPTIVE NEGATIVE; Benzodiazepines Screen,Urine PRESUMPTIVE NEGATIVE; Bilirubin,Urine NEG (Negative); Blood,Urine NEG (Negative); Cannabinoid Screen,Urine PRESUMPTIVE NEGATIVE; Cocaine Screen,Urine PRESUMPTIVE NEGATIVE; Color,Urine Yellow (Yellow); Hyaline Casts,Urine 5 /LPF; Methadone Screen,Urine PRESUMPTIVE NEGATIVE; Mucus,Urine FEW /HPF; Opiate Screen,Urine PRESUMPTIVE NEGATIVE
--- NOTE | 2021-01-03 08:23 | Cat Scan Report ---
CT ABDOMEN AND PELVIS WITHOUT CONTRAST HISTORY: Patient complains of lower abdominal pain / Tachycardia. COMPARISON: None. TECHNIQUE: CT images of the abdomen and pelvis were obtained without administration of intravenous co ntrast. All CT scans at this location are performed using CT dose reduction for ALARA by means of au tomated exposure control. FINDINGS: Lungs/bones: Mild atelectasis in the lower lungs Abdomen/pelvis: There is diffuse fatty infiltration of the liver. The gallbladder is distended. Sple en, adrenal glands, pancreas appear normal. There is a large mass within the mid abdomen. This mass m easures 10.6 x 10.0 cm. The mass is complex with fat and postcontrast internal enhancement. No bowel obstruction is seen. Degenerative changes seen within the spine. IMPRESSION: 1. 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 This mass is also seen in October 1. The mass does have components of fat however also has more complex postcontrast internal enhanceme nt. Given complex appearance liposarcoma cannot be excluded. MRI with contrast could be performed for further evaluation. 2. No evidence for obstruction. No renal or ureteral stone. Signer Name: Vikas Miles MD Signed: 01/03/2021 2:52 AM Workstation Name: [id number]
[2021-01-03] MEDS: INSULIN LISPRO 100 UNIT/ML SUB-Q SCH ×4 (09:16→22:41)
--- NOTE | 2021-01-03 09:28 | Progress Note ---
Assessment and Plan Assessment and plan: --Atrial flutter with rapid ventricular response Current Visit: Yes Status: Acute Rate is currently controlled. Patient was given IV Cardizem and will be closely monitored on the telemetry floor. Resume home medication oral Cardizem Consult placed to cardiology for further evaluation and recommendations. He had an echocardiogram in October 2020 with ejection fraction of 50 to 60%. Thyroid function within normal levels in November 01 --Hypomagnesemia Current Visit: Yes Status: Acute Oral and IV magnesium was given, follow electrolytes, replenish as needed --Acute exacerbation of chronic low back pain Current Visit: Yes Status: Acute Patient will be placed on analgesic medication as needed. Supportive care, PT if needed --Obesity; BMI 36.6 Current Visit: Yes Status: Acute Lifestyle modification encouraged. Dietary consult requested --chronic alcohol use Current Visit: Yes Status: Chronic Patient drinks alcohol on a daily basis. We will place on CIWA protocol. Closely monitor for alcohol withdrawal symptoms Thiamine folic acid --T2DM (type 2 diabetes mellitus) Current Visit: No Status: Acute Accu-Chek sliding scale coverage ADA diet Long-acting insulin as needed --GERD (gastroesophageal reflux disease) Current Visit: No Status: Chronic Patient currently on proton pump inhibitor. --Hypertension Current Visit: No Status: Chronic We will resume routine home medications once reconciled. We will monitor vital signs closely. --DVT prophylaxis Current Visit: No Status: Acute Patient placed on anticoagulation with subcutaneous Lovenox. --Full code status Current Visit: Yes Status: Acute Patient is a full code. We will closely monitor the patient and adjust management as needed Cardiology evaluation recommendations noted and appreciated Plan of care reviewed with the patient and his nurse History Interval history: I have seen and examined the patient at the bedside Patient's chart and medications reviewed Admitted this morning with atrial flutter with rapid ventricular rate Obese BMI 36.6 Patient feels slightly better mild discomfort Denies shortness of breath or chest pain Vital signs noted Hospitalist Physical - Constitutional Vitals: Temp Pulse Resp BP Pulse Ox 97.5 F L 91 H 14 151/106 98 01/03/21 08:22 01/03/21 08:22 01/03/21 08:22 01/03/21 08:22 01/03/21 08:22 General appearance: Present: no acute distress, obese - EENT Eyes: Present: PERRL, EOM intact - Neck Neck: Present: supple, normal ROM - Respiratory Respiratory effort: normal Respiratory: bilateral: diminished, negative: rales, rhonchi, wheezing - Cardiovascular Rhythm: regular Heart Sounds: Present: S1 & S2 - Extremities Extremities: no ischemia, No edema - Abdominal General gastrointestinal: soft, non-tender, non-distended, normal bowel sounds - Integumentary Integumentary: Present: clear, warm - Psychiatric Psychiatric: appropriate mood/affect, cooperative - Neurologic Neurologic: CNII-XII intact, moves all extremities Results - Labs CBC & Chem 7: 01/03/21 01:45 Labs: Laboratory Last Values Urine Color Yellow (Yellow) 01/03/21 01:35 Urine Turbidity Clear (Clear) 01/03/21 01:35 Urine pH 7.0 (5.0-7.0) 01/03/21 01:35 Ur Specific Hamer 1.016 (1.003-1.030) 01/03/21 01:35 Urine Protein 30 mg/dl mg/dL (Negative) 01/03/21 01:35 Urine Glucose (UA) 50 mg/dL (Negative) 01/03/21 01:35 Urine Ketones Neg mg/dL (Negative) 01/03/21 01:35 Urine Blood Neg (Negative) 01/03/21 01:35 Urine Nitrite Neg (Negative) 01/03/21 01:35 Urine Bilirubin Neg (Negative) 01/03/21 01:35 Urine Urobilinogen 4.0 mg/dL (<2.0) 01/03/21 01:35 Ur Leukocyte Esterase Neg (Negative) 01/03/21 01:35 Urine WBC (Auto) 1.0 /HPF (0.0-6.0) 01/03/21 01:35 Urine RBC (Auto) 2.0 /HPF (0.0-6.0) 01/03/21 01:35 U Epithel Cells (Auto) 1.0 /HPF (0-13.0) 01/03/21 01:35 Hyaline Casts 5 /LPF 01/03/21 01:35 Urine Mucus Few /HPF 01/03/21 01:35 Urine Opiates Screen Presumptive negative 01/03/21 01:35 Urine Methadone Screen Presumptive negative 01/03/21 01:35 Ur Barbiturates Screen Presumptive negative 01/03/21 01:35 Ur Phencyclidine Scrn Presumptive negative 01/03/21 01:35 Ur Amphetamines Screen Presumptive negative 01/03/21 01:35 U Benzodiazepines Scrn Presumptive negative 01/03/21 01:35 Urine Cocaine Screen Presumptive negative 01/03/21 01:35 U Marijuana (THC) Screen Presumptive negative 01/03/21 01:35 Drugs of Abuse Note Disclamer 01/03/21 01:35 Active Medications - Current Medications Current Medications: Generic Name Dose Route Start Last Admin Trade Name Freq PRN Reason Stop Dose Admin Acetaminophen 650 mg 01/03/21 04:57 Acetaminophen 325 Mg Tab PO Q4H PRN Pain MILD(1-3)/Fever >100.5/VAUGHN Dextrose 50 ml 01/03/21 04:57 Dextrose 50% In Water (25gm) 50 Ml Syringe IV Q30MIN PRN Hypoglycemia Protocol Lactated Ringer's 1,000 mls @ 175 mls/hr 01/03/21 05:00 Lactated Ringers IV DIRECT DIAMOND Insulin Human Lispro 0 unit 01/03/21 07:30 01/03/21 09:16 Insulin Lispro 100 Unit/Ml SUB-Q Not Given ACHS DIAMOND Protocol Magnesium Hydroxide 30 ml 01/03/21 04:57 Magnesium Hydroxide (Mom) Oral Liqd Udc PO Q4H PRN Constipation Morphine Sulfate 2 mg 01/03/21 04:57 Morphine 2 Mg/1 Ml Inj IV Q4H PRN Pain, Moderate (4-6) Ondansetron HCl 4 mg 01/03/21 04:57 Ondansetron 4 Mg/2 Ml Inj IV Q8H PRN Nausea And Vomiting Sodium Chloride 10 ml 01/03/21 10:00 Sodium Chloride 0.9% 10 Ml Flush Syringe IV BID DIAMOND Sodium Chloride 10 ml 01/03/21 04:57 Sodium Chloride 0.9% 10 Ml Flush Syringe IV PRN PRN LINE FLUSH
[2021-01-03] MEDS ORDERED: THIAMINE 100 MG TAB PO SCH (10:00)
[2021-01-03] MEDS ORDERED: MULTIVITAMINS,THER W-MINERALS TAB PO SCH (10:00)
--- NOTE | 2021-01-03 11:32 | Consultation ---
History of Present Illness Consult date: 01/03/21 Consult reason: other (Atrial flutter) History of present illness: 55-year old M who was brought in by EMS with low back pain. On presentation to the emergency department, patient was found with rapid atrial flutter, rate 127. Patient remained asymptomatic. Denies unusual shortness of breath, denies palpitations, and denies chest pain. He was treated with intravenous Cardizem. Initial labs revealed a low magnesium at 1.0. TSH and potassium levels were normal. Patient was admitted by the hospitalist and ordered a cardiac consultation. At this hospital in October, patient was found with atrial fibrillation of uncertain duration and initiated on Eliquis for oral anticoagulation. At that time an echocardiogram showed a normal left ventricular systolic function, ejection fraction 50-60%. He was planned for a MALIK guided cardioversion but left against medical advised before the procedure could be preformed. Since October, he has not followed with a grievance coordinator as an outpatient and is noncompliant with his medications. Past History Past Medical History: arrhythmia, diabetes, GERD, hypertension, hyperlipidemia, other (Depression, sciatica, left foot drop, chronic back pain) Past Surgical History: Other (Left rotator cuff surgery, left knee surgery) Social history: alcohol abuse. denies: smoking Family history: no significant family history Medications and Allergies Allergies Allergy/AdvReac Type Severity Reaction Status Date / Time lisinopril Allergy Angioedema Verified 11/12/14 19:57 tramadol Allergy Hives Verified 04/12/19 02:09 Home Medications Medication Instructions Recorded Confirmed Last Taken Type Pantoprazole [Protonix TAB] 40 mg PO BID@0800,2200 #60 tablet 12/02/14 11/15/20 02/25/19 Rx 40 mg Potassium Chloride [K-Dur] 10 meq PO QDAY #30 tablet 12/02/14 11/15/20 02/25/19 Rx 10 meq Thiamine [Vitamin B-1] 100 mg PO QDAY #30 tablet 12/02/14 11/15/20 02/25/19 Rx 100 mg Melatonin [Melatonin 5MG TAB] 5 mg PO QHS #30 tablet 02/28/19 11/15/20 Unknown Rx Multivitamin Tab W-MINERAL 1 each PO QDAY #30 tablet 02/28/19 11/15/20 Unknown Rx [Multiple Vitamin/Mineral (Theragran M)] Thiamine [Vitamin B-1] 100 mg PO QDAY #30 tablet 02/28/19 11/15/20 Unknown Rx Pravastatin Sodium [Pravastatin] 10 mg PO QHS 10/17/20 11/15/20 Unknown History AtorvaSTATin [Lipitor] 40 mg PO QHS #30 tablet 10/19/20 11/15/20 Unknown Rx dilTIAZem CD [Cardizem CD] 240 mg PO QDAY #30 capsule 10/19/20 11/15/20 Unknown Rx Active Meds: Active Medications Acetaminophen (Acetaminophen 325 Mg Tab) 650 mg PO Q4H PRN PRN Reason: Pain MILD(1-3)/Fever >100.5/VAUGHN Atorvastatin Calcium (Atorvastatin 40 Mg Tab) 40 mg PO QHS [facility] Dextrose (Dextrose 50% In Water (25gm) 50 Ml Syringe) 50 ml IV Q30MIN PRN; Protocol PRN Reason: Hypoglycemia Heparin Sodium (Porcine) (Heparin 5,000 Unit/1 Ml Vial) 5,000 unit SUB-Q Q12HR DIAMOND Lactated Ringer's (Lactated Ringers) 1,000 mls @ 175 mls/hr IV DIRECT [facility] Insulin Human Lispro (Insulin Lispro 100 Unit/Ml) 0 unit SUB-Q ACHS DIAMOND; Protocol Last Admin: 01/03/21 09:16 Dose: Not Given Documented by: Magnesium Hydroxide (Magnesium Hydroxide (Mom) Oral Liqd Udc) 30 ml PO Q4H PRN PRN Reason: Constipation Melatonin (Melatonin 5 Mg Tab) 5 mg PO QHS [facility] Metoprolol Tartrate (Metoprolol Tartrate 50 Mg Tab) 50 mg PO BID [facility] Morphine Sulfate (Morphine 2 Mg/1 Ml Inj) 2 mg IV Q4H PRN PRN Reason: Pain, Moderate (4-6) Multivitamins/Minerals (Multivitamins,Ther W-Minerals Tab) 1 each PO QDAY DIAMOND Stop: 01/04/21 09:59 Ondansetron HCl (Ondansetron 4 Mg/2 Ml Inj) 4 mg IV Q8H PRN PRN Reason: Nausea And Vomiting Pantoprazole Sodium (Pantoprazole 40 Mg Tab) 40 mg PO BID@0800,2200 DIAMOND Sodium Chloride (Sodium Chloride 0.9% 10 Ml Flush Syringe) 10 ml IV BID DIAMOND Sodium Chloride (Sodium Chloride 0.9% 10 Ml Flush Syringe) 10 ml IV PRN PRN PRN Reason: LINE FLUSH Thiamine HCl (Thiamine 100 Mg Tab) 100 mg PO QDAY DIAMOND Stop: 01/04/21 09:59 Review of Systems Cardiovascular: no chest pain, no orthopnea, no palpitations, no edema, no syncope, no shortness of breath, no dyspnea on exertion Physical Examination Vital Signs Pulse Ox 97 01/03/21 01:22 General appearance: no acute distress HEENT: Positive: PERRL Neck: Positive: trachea midline Cardiac: Positive: irregularly irregular Lungs: Positive: Decreased Breath Sounds Neuro: Positive: Grossly Intact Extremities: Absent: edema Assessment and Plan - Patient Problems (1) Atrial flutter with rapid ventricular response Current Visit: Yes Status: Acute Plan to address problem: 10/2020 echocardiogram showed a normal left ventricular systolic function, ejection fraction 50-60%. Will use sub-q heparin and Metoprolol for management of persistent atrial flutter. Will transition to oral anticoagulation before discharge.
[2021-01-03] MEDS: METOPROLOL TARTRATE 50 MG TAB PO SCH ×2 (11:40→21:12)
[2021-01-03] MEDS: MORPHINE 2 MG/1 ML INJ IV PRN (11:41)
[2021-01-03] MEDS ORDERED: dilTIAZem 60 MG TAB PO SCH (12:00)
[2021-01-03] MEDS: LACTATED RINGERS 1,000 ML IV SCH ×2 (13:56→21:09)
[2021-01-03 14:36] LABS: Albumin 4.5 g/dL (3.9-5); Calcium 9.5 mg/dL (8.4-10.2)
[2021-01-03 19:06] LABS: BUN/Creatinine Ratio 17; Blood Urea Nitrogen 15 mg/dL (9-20); Calcium 8.9 mg/dL (8.4-10.2); Hemolysis Index 28
[2021-01-03] MEDS: MELATONIN 5 MG TAB PO SCH (21:11)
[2021-01-03] MEDS: HEPARIN 5,000 UNIT/1 ML VIAL SUB-Q SCH (21:11)
[2021-01-03] MEDS: PANTOPRAZOLE 40 MG TAB PO SCH (21:11)
[2021-01-04] MEDS: MORPHINE 2 MG/1 ML INJ IV PRN (02:22)
[2021-01-04] MEDS: LACTATED RINGERS 1,000 ML IV SCH ×2 (02:26→08:46)
[2021-01-04 04:57] LABS: BUN/Creatinine Ratio 13; Blood Urea Nitrogen 10 mg/dL (9-20); Calcium 9.1 mg/dL (8.4-10.2); Hemolysis Index 21
[2021-01-04 05:15] LABS: Basophils % (Auto) 0.2 % (0.0-1.8); Eosinophils # (Auto) 0.1 K/mm3 (0.0-0.4); Eosinophils % (Auto) 1.3 % (0.0-4.3); Hematocrit 40.1 % (35.5-45.6); Hemoglobin 13.2 gm/dl (11.8-15.2); Lymphocytes # (Auto) 2.2 K/mm3 (1.2-5.4); Lymphocytes % (Auto) 30.5 % (13.4-35.0); Mean Corpuscular HGB Conc 33 % (32-34); Mean Corpuscular Volume 95 fl (84-94); Monocytes # (Auto) 0.8 K/mm3 (0.0-0.8); Monocytes % (Auto) 11.4 % (0.0-7.3); Platelet Count 113 K/mm3 (140-440); Red Blood Count 4.22 M/mm3 (3.65-5.03); Red Cell Distribution Width 15.6 % (13.2-15.2)
[2021-01-04] MEDS: INSULIN LISPRO 100 UNIT/ML SUB-Q SCH ×4 (08:00→22:01)
--- NOTE | 2021-01-04 08:22 | Progress Note ---
Assessment and Plan Assessment and plan: --Alcohol withdrawal symptoms; Current Visit: Yes Status: Acute Initiate CIWA protocol Thiamine, folic acid, multivitamins IV fluids with banana bag Restraints as needed for safety --chronic alcohol use Current Visit: Yes Status: Chronic Patient drinks alcohol on a daily basis. We will place on CIWA protocol. Closely monitor for alcohol withdrawal symptoms Thiamine folic acid Strongly advised to quit alcohol intake Seek alcohol rehabilitation upon discharge --Atrial flutter with intermittent RVR Current Visit: Yes Status: Acute Currently rate controlled.Continue metoprolol Patient was noncompliant with medications patient refused MALIK guided cardioversion in the past Cardiology planning cardioversion during this admission Hold anticoagulation till after the procedure Echo in October 2020 with ejection fraction of 50 to 60%. Thyroid function within normal levels in November 01 --Hypomagnesemia/hypokalemia Current Visit: Yes Status: Acute Oral KCl and IV magnesium was given, follow electrolytes, replenish as needed --Acute exacerbation of chronic low back pain Current Visit: Yes Status: Acute Patient will be placed on analgesic medication as needed. Supportive care, PT if needed --Obesity; BMI 36.6 Current Visit: Yes Status: Acute Lifestyle modification encouraged. Dietary consult requested --T2DM (type 2 diabetes mellitus) Current Visit: No Status: Acute Accu-Chek sliding scale coverage ADA diet Long-acting insulin as needed --GERD (gastroesophageal reflux disease) Current Visit: No Status: Chronic Patient currently on proton pump inhibitor. --Hypertension Current Visit: No Status: Chronic We will resume routine home medications once reconciled. We will monitor vital signs closely. --DVT prophylaxis Current Visit: No Status: Acute Patient placed on anticoagulation with subcutaneous Lovenox. --Full code status Current Visit: Yes Status: Acute Patient is a full code. We will closely monitor the patient and adjust management as needed Cardiology evaluation recommendations noted and appreciated Plan of care reviewed with the patient and his nurse 01/04/2021; patient has alcohol withdrawal symptoms Initiated CIWA protocol, restraint for safety Atrial flutter rate controlled today, metoprolol, Cardiology considering MALIK guided cardioversion Start Eliquis after the procedure History Interval history: Patient has severe agitation and tremulousness Having alcohol withdrawal symptoms Will initiate CIWA protocol Atrial flutter rate controlled Vital signs noted Hospitalist Physical - Constitutional Vitals: Temp Pulse Resp BP Pulse Ox 98.7 F 102 H 19 155/115 92 01/04/21 03:56 01/04/21 03:56 01/04/21 03:56 01/04/21 03:56 01/04/21 03:56 General appearance: Present: mild distress, obese, other (Tremulousness and agitation) - EENT Eyes: Present: PERRL, EOM intact - Neck Neck: Present: supple, normal ROM - Respiratory Respiratory effort: normal Respiratory: bilateral: diminished, negative: rales, rhonchi, wheezing - Cardiovascular Rhythm: irregularly irregular Heart Sounds: Present: S1 & S2 - Extremities Extremities: no ischemia, No edema - Abdominal General gastrointestinal: soft, non-tender, non-distended, normal bowel sounds - Integumentary Integumentary: Present: clear, warm - Psychiatric Psychiatric: appropriate mood/affect, cooperative - Neurologic Neurologic: CNII-XII intact, moves all extremities Results - Labs CBC & Chem 7: 01/05/21 13:24 01/04/21 03:55 Labs: Laboratory Last Values WBC 7.2 K/mm3 (4.5-11.0) 01/04/21 03:55 RBC 4.22 M/mm3 (3.65-5.03) 01/04/21 03:55 Hgb 13.2 gm/dl (11.8-15.2) 01/04/21 03:55 Hct 40.1 % (35.5-45.6) 01/04/21 03:55 MCV 95 fl (84-94) H 01/04/21 03:55 MCH 31 pg (28-32) 01/04/21 03:55 MCHC 33 % (32-34) 01/04/21 03:55 RDW 15.6 % (13.2-15.2) H 01/04/21 03:55 Plt Count 113 K/mm3 (140-440) L 01/04/21 03:55 Lymph % (Auto) 30.5 % (13.4-35.0) 01/04/21 03:55 [place] % (Auto) 11.4 % (0.0-7.3) H 01/04/21 03:55 Eos % (Auto) 1.3 % (0.0-4.3) 01/04/21 03:55 Baso % (Auto) 0.2 % (0.0-1.8) 01/04/21 03:55 Lymph # (Auto) 2.2 K/mm3 (1.2-5.4) 01/04/21 03:55 [place] # (Auto) 0.8 K/mm3 (0.0-0.8) 01/04/21 03:55 Eos # (Auto) 0.1 K/mm3 (0.0-0.4) 01/04/21 03:55 Baso # (Auto) 0.0 K/mm3 (0.0-0.1) 01/04/21 03:55 Seg Neutrophils % 56.6 % (40.0-70.0) 01/04/21 03:55 Seg Neutrophils # 4.1 K/mm3 (1.8-7.7) 01/04/21 03:55 PT 13.7 Sec. (12.2-14.9) 01/04/21 03:55 INR 1.00 (0.87-1.13) 01/04/21 03:55 Sodium 138 mmol/L (137-145) 01/04/21 03:55 Potassium 3.5 mmol/L (3.6-5.0) L 01/04/21 03:55 Chloride 100.0 mmol/L (98-107) 01/04/21 03:55 Carbon Dioxide 24 mmol/L (22-30) 01/04/21 03:55 Anion Gap 18 mmol/L 01/04/21 03:55 BUN 10 mg/dL (9-20) 01/04/21 03:55 Creatinine 0.8 mg/dL (0.8-1.3) 01/04/21 03:55 Estimated GFR > 60 ml/min 01/04/21 03:55 BUN/Creatinine Ratio 13 % 01/04/21 03:55 Glucose 131 mg/dL (75-100) H 01/04/21 03:55 POC Glucose 163 mg/dL (70-105) H 01/04/21 07:39 Calcium 9.1 mg/dL (8.4-10.2) 01/04/21 03:55 Phosphorus 3.00 mg/dL (2.5-4.5) 01/04/21 03:55 Magnesium 1.60 mg/dL (1.7-2.3) L 01/04/21 03:55 Total Bilirubin 0.70 mg/dL (0.1-1.2) 01/03/21 01:45 AST 33 units/L (5-40) 01/03/21 01:45 ALT 18 units/L (7-56) 01/03/21 01:45 Alkaline Phosphatase 46 units/L (35-129) 01/03/21 01:45 Total Creatine Kinase 585 units/L (55-170) H 01/03/21 01:45 Total Protein 7.8 g/dL (6.3-8.2) 01/03/21 01:45 Albumin 4.5 g/dL (3.9-5) 01/03/21 01:45 Albumin/Globulin Ratio 1.4 % 01/03/21 01:45 TSH 2.650 mlU/mL (0.270-4.200) 01/03/21 12:19 Free T4 1.05 ng/dL (0.76-1.46) 01/03/21 12:19 Urine Color Yellow (Yellow) 01/03/21 01:35 Urine Turbidity Clear (Clear) 01/03/21 01:35 Urine pH 7.0 (5.0-7.0) 01/03/21 01:35 Ur Specific [place] 1.016 (1.003-1.030) 01/03/21 01:35 Urine Protein 30 mg/dl mg/dL (Negative) 01/03/21 01:35 Urine Glucose (UA) 50 mg/dL (Negative) 01/03/21 01:35 Urine Ketones Neg mg/dL (Negative) 01/03/21 01:35 Urine Blood Neg (Negative) 01/03/21 01:35 Urine Nitrite Neg (Negative) 01/03/21 01:35 Urine Bilirubin Neg (Negative) 01/03/21 01:35 Urine Urobilinogen 4.0 mg/dL (<2.0) 01/03/21 01:35 Ur Leukocyte Esterase Neg (Negative) 01/03/21 01:35 Urine WBC (Auto) 1.0 /HPF (0.0-6.0) 01/03/21 01:35 Urine RBC (Auto) 2.0 /HPF (0.0-6.0) 01/03/21 01:35 U Epithel Cells (Auto) 1.0 /HPF (0-13.0) 01/03/21 01:35 Hyaline Casts 5 /LPF 01/03/21 01:35 Urine Mucus Few /HPF 01/03/21 01:35 Salicylates < 0.3 mg/dL (2.8-20.0) L 01/03/21 01:45 Urine Opiates Screen Presumptive negative 01/03/21 01:35 Urine Methadone Screen Presumptive negative 01/03/21 01:35 Acetaminophen 5.0 ug/mL (10.0-30.0) L 01/03/21 01:45 Ur Barbiturates Screen Presumptive negative 01/03/21 01:35 Ur Phencyclidine Scrn Presumptive negative 01/03/21 01:35 Ur Amphetamines Screen Presumptive negative 01/03/21 01:35 U Benzodiazepines Scrn Presumptive negative 01/03/21 01:35 Urine Cocaine Screen Presumptive negative 01/03/21 01:35 U Marijuana (THC) Screen Presumptive negative 01/03/21 01:35 Drugs of Abuse Note Disclamer 01/03/21 01:35 Plasma/Serum Alcohol < 0.01 % (0-0.07) 01/03/21 01:45 Active Medications - Current Medications Current Medications: Generic Name Dose Route Start Last Admin Trade Name Freq PRN Reason Stop Dose Admin Acetaminophen 650 mg 01/03/21 04:57 01/03/21 21:10 Acetaminophen 325 Mg Tab PO 650 mg Q4H PRN Administration Pain MILD(1-3)/Fever >100.5/VAUGHN Atorvastatin Calcium 40 mg 01/03/21 22:00 01/03/21 21:11 Atorvastatin 40 Mg Tab PO 40 mg QHS DIAMOND Administration Dextrose 50 ml 01/03/21 04:57 Dextrose 50% In Water (25gm) 50 Ml Syringe IV Q30MIN PRN Hypoglycemia Protocol Heparin Sodium (Porcine) 5,000 unit 01/03/21 22:00 01/03/21 21:11 Heparin 5,000 Unit/1 Ml Vial SUB-Q 5,000 unit Q12HR DIAMOND Administration Lactated Ringer's 1,000 mls @ 175 mls/hr 01/03/21 05:00 01/04/21 02:26 Lactated Ringers IV 175 mls/hr DIRECT DIAMOND Administration Magnesium Sulfate 3 gm/ Sodium 106 mls @ 35.333 mls/hr 01/04/21 08:17 Chloride IV 01/04/21 11:16 ONCE ONE Insulin Human Lispro 0 unit 01/03/21 07:30 01/03/21 22:41 Insulin Lispro 100 Unit/Ml SUB-Q Not Given ACHS [facility] Protocol Magnesium Hydroxide 30 ml 01/03/21 04:57 Magnesium Hydroxide (Mom) Oral Liqd Udc PO Q4H PRN Constipation Melatonin 5 mg 01/03/21 22:00 01/03/21 21:11 Melatonin 5 Mg Tab PO 5 mg QHS DIAMOND Administration Metoprolol Tartrate 50 mg 01/03/21 12:00 01/03/21 21:12 Metoprolol Tartrate 50 Mg Tab PO 50 mg BID DIAMOND Administration Morphine Sulfate 2 mg 01/03/21 04:57 01/04/21 02:22 Morphine 2 Mg/1 Ml Inj IV 2 mg Q4H PRN Administration Pain, Moderate (4-6) Multivitamins/Minerals 1 each 01/03/21 10:00 01/03/21 11:31 Multivitamins,Ther W-Minerals Tab PO 01/04/21 09:59 1 each QDAY DIAMOND Administration Ondansetron HCl 4 mg 01/03/21 04:57 Ondansetron 4 Mg/2 Ml Inj IV Q8H PRN Nausea And Vomiting Pantoprazole Sodium 40 mg 01/03/21 22:00 01/03/21 21:11 Pantoprazole 40 Mg Tab PO 40 mg BID@0800,2200 DIAMOND Administration Potassium Chloride 40 meq 01/04/21 08:17 Potassium Chloride Er 20 Meq Tab PO 01/04/21 08:18 ONCE ONE Sodium Chloride 10 ml 01/03/21 10:00 01/03/21 21:11 Sodium Chloride 0.9% 10 Ml Flush Syringe IV 10 ml BID DIAMOND Administration Sodium Chloride 10 ml 01/03/21 04:57 01/04/21 02:25 Sodium Chloride 0.9% 10 Ml Flush Syringe IV 10 ml PRN PRN Administration LINE FLUSH Thiamine HCl 100 mg 01/03/21 10:00 01/03/21 11:31 Thiamine 100 Mg Tab PO 01/04/21 09:59 100 mg QDAY DIAMOND Administration
[2021-01-04] MEDS: LORazepam 2 MG/ML VIAL IV PRN ×3 (08:48→23:37)
[2021-01-04] MEDS: PANTOPRAZOLE 40 MG TAB PO SCH ×2 (08:49→22:01)
[2021-01-04] MEDS: HEPARIN 5,000 UNIT/1 ML VIAL SUB-Q SCH ×2 (09:00→22:01)
[2021-01-04] MEDS ORDERED: HALOPERIDOL LACTATE 5 MG/1 ML INJ IV PRN (09:00)
[2021-01-04] MEDS ORDERED: POTASSIUM CHLORIDE ER 20 MEQ TAB PO SCH (09:00)
[2021-01-04] MEDS ORDERED: LORazepam 2 MG/ML VIAL IV PRN ×2 (09:00)
[2021-01-04] MEDS: METOPROLOL TARTRATE 50 MG TAB PO SCH (09:01)
--- NOTE | 2021-01-04 09:27 | Progress Note ---
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 Otherwise, conservative cardiac management. Subjective Date of service: 01/04/21 Interval history: Patient has no cardiac complaints. Denies palpitations. classroom monitor shows atrial flutter with a well controlled ventricular rate. Objective Vital Signs Temp Pulse Pulse Resp BP BP Pulse Ox 01/04/21 09:01 125 H 141/75 01/04/21 07:37 98.7 F 57 L 20 161/95 95 01/04/21 03:56 98.7 F 102 H 19 155/115 92 01/04/21 02:22 18 01/04/21 00:00 97.9 F 88 18 162/109 100 01/03/21 21:12 95 H 154/116 01/03/21 21:10 18 01/03/21 21:00 102 H 01/03/21 20:00 98.1 F 95 H 20 152/116 99 01/03/21 18:40 91/49 100 01/03/21 18:31 91/49 100 01/03/21 18:21 91/49 100 01/03/21 18:11 125/53 98 01/03/21 18:01 125/53 100 01/03/21 17:51 111/57 100 01/03/21 17:41 101/62 99 01/03/21 17:31 101/62 98 01/03/21 17:21 114/52 100 01/03/21 17:18 114/52 01/03/21 14:03 87 17 98 01/03/21 13:56 90 01/03/21 12:11 16 01/03/21 11:41 18 01/03/21 11:40 87 140/89 01/03/21 11:26 111/70 01/03/21 11:20 98.4 F 87 17 140/89 98 01/03/21 11:11 122/78 95 01/03/21 11:01 122/83 95 01/03/21 10:56 122/83 01/03/21 10:41 106/77 01/03/21 10:26 113/77 01/03/21 10:11 113/70 01/03/21 09:56 110/69 01/03/21 09:44 14 97 01/03/21 09:40 113/69 100 01/03/21 09:38 113/64 100 - Physical Examination General: No Apparent Distress HEENT: Positive: PERRL Neck: Positive: trachea midline Cardiac: Positive: irregularly irregular Lungs: Positive: Decreased Breath Sounds Neuro: Positive: Grossly Intact Extremities: Absent: edema - Labs and Meds Cardiac Enzymes 01/03/21 Range/Units 01:45 AST 33 (5-40) units/L Coagulation 01/04/21 Range/Units 03:55 PT 13.7 (12.2-14.9) Sec. INR 1.00 (0.87-1.13) CBC 01/04/21 Range/Units 03:55 WBC 7.2 (4.5-11.0) K/mm3 RBC 4.22 (3.65-5.03) M/mm3 Hgb 13.2 (11.8-15.2) gm/dl Hct 40.1 (35.5-45.6) % Plt Count 113 L (140-440) K/mm3 Lymph # (Auto) 2.2 (1.2-5.4) K/mm3 [place] # (Auto) 0.8 (0.0-0.8) K/mm3 Eos # (Auto) 0.1 (0.0-0.4) K/mm3 Baso # (Auto) 0.0 (0.0-0.1) K/mm3 Comprehensive Metabolic Panel 01/03/21 01/03/21 01/04/21 Range/Units 01:45 18:09 03:55 Sodium 142 133 L D 138 (137-145) mmol/L Potassium 3.9 3.4 L 3.5 L (3.6-5.0) mmol/L Chloride 99.4 99.5 100.0 (98-107) mmol/L Carbon Dioxide 19 L 23 24 (22-30) mmol/L BUN 17 15 10 (9-20) mg/dL Creatinine 1.5 H 0.9 0.8 (0.8-1.3) mg/dL Glucose 133 H 150 H 131 H (75-100) mg/dL Calcium 9.5 8.9 9.1 (8.4-10.2) mg/dL AST 33 (5-40) units/L ALT 18 (7-56) units/L Alkaline Phosphatase 46 (35-129) units/L Total Protein 7.8 (6.3-8.2) g/dL Albumin 4.5 (3.9-5) g/dL
[2021-01-04] MEDS ORDERED: MAGNESIUM SULFATE 3 GM in SODIUM CHLORIDE 0.9% 100 ML IV ONE (09:30)
[2021-01-04] MEDS: 1: FOLIC ACID 1 MG, MULTIPLE VITAMIN INJ, ADULT 10 ML, THIAMINE 100 MG in SODIUM CHLORID IV SCH (13:24)
--- NOTE | 2021-01-04 13:45 | Cat Scan Report ---
CT head without contrast HISTORY: altered level of consciousness. TECHNIQUE: Axial imaging performed from the skull apex through the skull base without the use of con trast. All CT scans at this location are performed using CT dose reduction for ALARA by means of aut omated exposure control. COMPARISON: CT head from 02/26/2019 FINDINGS: Parenchyma: No acute intracranial hemorrhage or parenchymal abnormality. Ventricles: There is mild diffuse brain atrophy with commensurate ventricular enlargement which is l ikely age appropriate. Soft tissues: Soft tissues including the orbits appear normal. Bones: No acute osseous abnormality. Sinuses: There is moderate mucosal thickening in the left maxilla sinus. Remaining sinuses and masto id air cells are clear. IMPRESSION: No acute abnormality. Signer Name: Omer Bond MD Signed: 01/04/2021 1:41 PM Workstation Name: [id number]
--- NOTE | 2021-01-04 14:05 | Electrocardiograph Report ---
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
--- NOTE | 2021-01-04 14:06 | Electrocardiograph Report ---
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
[2021-01-04] MEDS: MELATONIN 5 MG TAB PO SCH (22:01)
[2021-01-05] MEDS: INSULIN LISPRO 100 UNIT/ML SUB-Q SCH ×4 (07:51→23:15)
--- NOTE | 2021-01-05 10:00 | Progress Note ---
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 Subjective Date of service: 01/05/21 Interval history: library monitor shows episodes of atrial flutter with ventricular pause, up to 4.5 seconds. Patient does have underlying sleep apnea but there are pauses that appears while awake. Objective Vital Signs Temp Pulse Pulse Pulse Resp BP Pulse Ox 01/05/21 07:20 98.0 F 89 18 150/106 95 01/05/21 05:00 84 01/05/21 03:44 98.0 F 18 149/106 01/05/21 03:00 93 H 93 H 18 99 01/05/21 00:14 97.8 F 84 18 144/101 96 01/04/21 21:00 90 01/04/21 19:26 98.0 F 93 H 18 148/93 99 01/04/21 15:48 98.4 F 87 20 147/104 90 01/04/21 13:00 87 01/04/21 11:06 98.6 F 86 20 158/111 94 01/04/21 10:14 110 H 110 H 15 96 - Physical Examination General: No Apparent Distress HEENT: Positive: PERRL Neck: Positive: trachea midline Neuro: Positive: Grossly Intact Extremities: Absent: edema
[2021-01-05] MEDS ORDERED: HEPARIN 10,000 UNITS/10 ML VIAL IV PRN (10:30)
[2021-01-05] MEDS: PANTOPRAZOLE 40 MG TAB PO SCH ×2 (10:52→21:17)
[2021-01-05] MEDS: HEPARIN/ 0.45% NACL DRIP 25,000 UNIT/500 ML BAG IV SCH (10:53)
[2021-01-05 14:29] LABS: Hematocrit 40.6 % (35.5-45.6); Hemoglobin 13.8 gm/dl (11.8-15.2)
[2021-01-05 14:41] LABS: Partial Thromboplastin Time 44.5 Sec. (24.2-36.6)
[2021-01-05] MEDS: THIAMINE 100 MG, FOLIC ACID 1 MG, MULTIPLE VITAMIN INJ, ADULT 10 ML in SODIUM CHLORIDE ... IV SCH (16:00)
--- NOTE | 2021-01-05 17:01 | Progress Note ---
Assessment and Plan Assessment and plan: --A. Flutter persistent /rate controlled Current Visit: Yes Status: Acute Currently rate controlled.Continue metoprolol Patient was noncompliant with medications And patient refused MALIK guided cardioversion in the past Cardiology planning cardioversion during this admission Hold anticoagulation till after the procedure Echo in October 2020 with ejection fraction of 50 to 60%. Thyroid function within normal levels in November 01 Hold metoprolol in view of intermittent pauses on telemetry Thyroid function within normal limits Cardiology consulting EP consultation Started on heparin drip --Alcohol withdrawal symptoms; Current Visit: Yes Status: Acute Initiate CIWA protocol Thiamine, folic acid, multivitamins IV fluids with banana bag Restraints as needed for safety --chronic alcohol use Current Visit: Yes Status: Chronic Patient drinks alcohol on a daily basis. Counseling done strongly advised to quit alcohol intake Advised to seek alcohol rehabilitation and [employer] support group --Hypomagnesemia/hypokalemia Current Visit: Yes Status: Acute Replenished, monitor electrolytes --Acute exacerbation of chronic low back pain Current Visit: Yes Status: Acute Patient will be placed on analgesic medication as needed. Supportive care, PT if needed --Obesity; BMI 36.6 Current Visit: Yes Status: Acute Lifestyle modification encouraged. Dietary consult requested --T2DM (type 2 diabetes mellitus) Current Visit: No Status: Acute Accu-Chek sliding scale coverage ADA diet Long-acting insulin as needed --GERD (gastroesophageal reflux disease) Current Visit: No Status: Chronic Patient currently on proton pump inhibitor. --Hypertension Current Visit: No Status: Chronic We will resume routine home medications once reconciled. We will monitor vital signs closely. --DVT prophylaxis Current Visit: No Status: Acute Patient placed on anticoagulation with subcutaneous Lovenox. --Full code status Current Visit: Yes Status: Acute Patient is a full code. We will closely monitor the patient and adjust management as needed Cardiology evaluation recommendations noted and appreciated Plan of care reviewed with the patient and his nurse Disposition; follow EP cardiology evaluation recommendation Discharge when medically stable Brief history: 55-year-old male patient was admitted with a flutter with rapid ventricular rate , history of alcohol use , and some withdrawal symptoms ,01/04/2021; patient has alcohol withdrawal symptoms Initiated CIWAprotocol, persistent a flutter, EP manager of financial reporting was consulted for possible MALIK cardioversion. 01/04/2021; patient has severe confusion and agitation Alcohol withdrawal symptoms, CIWA protocol initiated Restraint for safety 01/05/2021; EP consult was requested by cardiology Heparin drip started, a flutter rate controlled today Continue current management History Interval history: I have seen and examined the patient at the bedside Patient's chart and medications reviewed Patient feels slightly better more alert and awake than yesterday Continues to have atrial flutter but today it is rate controlled Vital signs reviewed Hospitalist Physical - Constitutional Vitals: Temp Pulse Resp BP Pulse Ox 98.0 F 87 20 125/82 95 01/05/21 11:07 01/05/21 16:30 01/05/21 11:07 01/05/21 11:07 01/05/21 16:30 General appearance: Present: mild distress, obese, other (Tremulousness and agitation) - EENT Eyes: Present: PERRL, EOM intact - Neck Neck: Present: supple, normal ROM - Respiratory Respiratory effort: normal Respiratory: bilateral: diminished, negative: rales, rhonchi, wheezing - Cardiovascular Rhythm: regular Heart Sounds: Present: S1 & S2 - Extremities Extremities: no ischemia, No edema - Abdominal General gastrointestinal: soft, non-tender, non-distended, normal bowel sounds - Integumentary Integumentary: Present: clear, warm - Psychiatric Psychiatric: appropriate mood/affect, cooperative - Neurologic Neurologic: CNII-XII intact Results - Labs CBC & Chem 7: 01/05/21 13:24 01/04/21 03:55 Labs: Laboratory Last Values WBC 7.2 K/mm3 (4.5-11.0) 01/04/21 03:55 RBC 4.22 M/mm3 (3.65-5.03) 01/04/21 03:55 Hgb 13.8 gm/dl (11.8-15.2) 01/05/21 13:24 Hct 40.6 % (35.5-45.6) 01/05/21 13:24 MCV 95 fl (84-94) H 01/04/21 03:55 MCH 31 pg (28-32) 01/04/21 03:55 MCHC 33 % (32-34) 01/04/21 03:55 RDW 15.6 % (13.2-15.2) H 01/04/21 03:55 Plt Count 122 K/mm3 (140-440) L 01/05/21 13:24 Lymph % (Auto) 30.5 % (13.4-35.0) 01/04/21 03:55 [place] % (Auto) 11.4 % (0.0-7.3) H 01/04/21 03:55 Eos % (Auto) 1.3 % (0.0-4.3) 01/04/21 03:55 Baso % (Auto) 0.2 % (0.0-1.8) 01/04/21 03:55 Lymph # (Auto) 2.2 K/mm3 (1.2-5.4) 01/04/21 03:55 [place] # (Auto) 0.8 K/mm3 (0.0-0.8) 01/04/21 03:55 Eos # (Auto) 0.1 K/mm3 (0.0-0.4) 01/04/21 03:55 Baso # (Auto) 0.0 K/mm3 (0.0-0.1) 01/04/21 03:55 Seg Neutrophils % 56.6 % (40.0-70.0) 01/04/21 03:55 Seg Neutrophils # 4.1 K/mm3 (1.8-7.7) 01/04/21 03:55 PT 13.8 Sec. (12.2-14.9) 01/05/21 13:24 INR 1.00 (0.87-1.13) 01/05/21 13:24 APTT 44.5 Sec. (24.2-36.6) H 01/05/21 13:24 Sodium 138 mmol/L (137-145) 01/04/21 03:55 Potassium 3.5 mmol/L (3.6-5.0) L 01/04/21 03:55 Chloride 100.0 mmol/L (98-107) 01/04/21 03:55 Carbon Dioxide 24 mmol/L (22-30) 01/04/21 03:55 Anion Gap 18 mmol/L 01/04/21 03:55 BUN 10 mg/dL (9-20) 01/04/21 03:55 Creatinine 0.8 mg/dL (0.8-1.3) 01/04/21 03:55 Estimated GFR > 60 ml/min 01/04/21 03:55 BUN/Creatinine Ratio 13 % 01/04/21 03:55 Glucose 131 mg/dL (75-100) H 01/04/21 03:55 POC Glucose 126 mg/dL (70-105) H 01/05/21 16:15 Calcium 9.1 mg/dL (8.4-10.2) 01/04/21 03:55 Phosphorus 3.00 mg/dL (2.5-4.5) 01/04/21 03:55 Magnesium 1.60 mg/dL (1.7-2.3) L 01/04/21 03:55 Total Bilirubin 0.70 mg/dL (0.1-1.2) 01/03/21 01:45 AST 33 units/L (5-40) 01/03/21 01:45 ALT 18 units/L (7-56) 01/03/21 01:45 Alkaline Phosphatase 46 units/L (35-129) 01/03/21 01:45 Total Creatine Kinase 585 units/L (55-170) H 01/03/21 01:45 Total Protein 7.8 g/dL (6.3-8.2) 01/03/21 01:45 Albumin 4.5 g/dL (3.9-5) 01/03/21 01:45 Albumin/Globulin Ratio 1.4 % 01/03/21 01:45 TSH 2.650 mlU/mL (0.270-4.200) 01/03/21 12:19 Free T4 1.05 ng/dL (0.76-1.46) 01/03/21 12:19 Urine Color Yellow (Yellow) 01/03/21 01:35 Urine Turbidity Clear (Clear) 01/03/21 01:35 Urine pH 7.0 (5.0-7.0) 01/03/21 01:35 Ur Specific [place] 1.016 (1.003-1.030) 01/03/21 01:35 Urine Protein 30 mg/dl mg/dL (Negative) 01/03/21 01:35 Urine Glucose (UA) 50 mg/dL (Negative) 01/03/21 01:35 Urine Ketones Neg mg/dL (Negative) 01/03/21 01:35 Urine Blood Neg (Negative) 01/03/21 01:35 Urine Nitrite Neg (Negative) 01/03/21 01:35 Urine Bilirubin Neg (Negative) 01/03/21 01:35 Urine Urobilinogen 4.0 mg/dL (<2.0) 01/03/21 01:35 Ur Leukocyte Esterase Neg (Negative) 01/03/21 01:35 Urine WBC (Auto) 1.0 /HPF (0.0-6.0) 01/03/21 01:35 Urine RBC (Auto) 2.0 /HPF (0.0-6.0) 01/03/21 01:35 U Epithel Cells (Auto) 1.0 /HPF (0-13.0) 01/03/21 01:35 Hyaline Casts 5 /LPF 01/03/21 01:35 Urine Mucus Few /HPF 01/03/21 01:35 Salicylates < 0.3 mg/dL (2.8-20.0) L 01/03/21 01:45 Urine Opiates Screen Presumptive negative 01/03/21 01:35 Urine Methadone Screen Presumptive negative 01/03/21 01:35 Acetaminophen 5.0 ug/mL (10.0-30.0) L 01/03/21 01:45 Ur Barbiturates Screen Presumptive negative 01/03/21 01:35 Ur Phencyclidine Scrn Presumptive negative 01/03/21 01:35 Ur Amphetamines Screen Presumptive negative 01/03/21 01:35 U Benzodiazepines Scrn Presumptive negative 01/03/21 01:35 Urine Cocaine Screen Presumptive negative 01/03/21 01:35 U Marijuana (THC) Screen Presumptive negative 01/03/21 01:35 Drugs of Abuse Note Disclamer 01/03/21 01:35 Plasma/Serum Alcohol < 0.01 % (0-0.07) 01/03/21 01:45 Vasques/IV: Voiding Method Urinal Active Medications - Current Medications Current Medications: Generic Name Dose Route Start Last Admin Trade Name Freq PRN Reason Stop Dose Admin Acetaminophen 650 mg 01/03/21 04:57 01/03/21 21:10 Acetaminophen 325 Mg Tab PO 650 mg Q4H PRN Administration Pain MILD(1-3)/Fever >100.5/VAUGHN Atorvastatin Calcium 40 mg 01/03/21 22:00 01/04/21 22:01 Atorvastatin 40 Mg Tab PO 40 mg QHS DIAMOND Administration Dextrose 50 ml 01/03/21 04:57 Dextrose 50% In Water (25gm) 50 Ml Syringe IV Q30MIN PRN Hypoglycemia Protocol Haloperidol Lactate 5 mg 01/04/21 09:00 Haloperidol Lactate 5 Mg/1 Ml Inj IV Q1HR PRN Unrespon. to mult. doses BZD's Heparin Sodium (Porcine) 5,000 unit 01/05/21 10:30 Heparin 10,000 Units/10 Ml Vial IV Q6H PRN Anti-Xa Assay < 0.1 units/ml Lactated Ringer's 1,000 mls @ 175 mls/hr 01/03/21 05:00 01/04/21 08:46 Lactated Ringers IV 175 mls/hr DIRECT DIAMOND Administration Heparin Sodium/Sodium Chloride 25,000 unit in 500 mls @ 30 mls/hr 01/05/21 11:00 01/05/21 10:53 Heparin/ 0.45% Nacl-25,000 Unit/500 Ml IV 1,500 units/hr TITR DIAMOND 30 mls/hr Administration Protocol 1,500 UNITS/HR Sodium Chloride 1,000 mls @ 125 mls/hr 01/05/21 12:45 Nacl 0.9% 1000 Ml IV DIRECT DIAMOND Thiamine HCl 100 mg/ Folic 1,011.2 mls @ 125 mls/hr 01/05/21 14:00 01/05/21 16:00 Acid 1 mg/ Multivitamins/ IV 125 mls/hr Minerals 10 ml/ Sodium DAILY DIAMOND Administration Chloride Insulin Human Lispro 0 unit 01/03/21 07:30 01/05/21 16:25 Insulin Lispro 100 Unit/Ml SUB-Q Not Given ACHS DIAMOND Protocol Lorazepam 2 mg 01/04/21 08:30 01/04/21 23:37 Lorazepam 2 Mg/Ml Vial IV 2 mg Q1H PRN Administration CIWA-Ar 8-15 Lorazepam 4 mg 01/04/21 09:00 Lorazepam 2 Mg/Ml Vial IV Q1HR PRN CIWA-Ar 16-25 Lorazepam 4 mg 01/04/21 09:00 Lorazepam 2 Mg/Ml Vial IV Q15MIN PRN CIWA-Ar >25 Magnesium Hydroxide 30 ml 01/03/21 04:57 Magnesium Hydroxide (Mom) Oral Liqd Udc PO Q4H PRN Constipation Melatonin 5 mg 01/03/21 22:00 01/04/21 22:01 Melatonin 5 Mg Tab PO 5 mg QHS DIAMOND Administration Morphine Sulfate 2 mg 01/03/21 04:57 01/04/21 02:22 Morphine 2 Mg/1 Ml Inj IV 2 mg Q4H PRN Administration Pain, Moderate (4-6) Ondansetron HCl 4 mg 01/03/21 04:57 Ondansetron 4 Mg/2 Ml Inj IV Q8H PRN Nausea And Vomiting Pantoprazole Sodium 40 mg 01/03/21 22:00 01/05/21 10:52 Pantoprazole 40 Mg Tab PO 40 mg BID@0800,2200 DIAMOND Administration Sodium Chloride 10 ml 01/03/21 10:00 01/05/21 10:53 Sodium Chloride 0.9% 10 Ml Flush Syringe IV 10 ml BID DIAMOND Administration Sodium Chloride 10 ml 01/03/21 04:57 01/04/21 02:25 Sodium Chloride 0.9% 10 Ml Flush Syringe IV 10 ml PRN PRN Administration LINE FLUSH Nutrition/Malnutrition Assess - Dietary Evaluation Nutrition/Malnutrition Findings: Nutrition Notes Start: 01/04/21 13:01 Freq: Status: Active Protocol: Document 01/04/21 13:01 (Rec: 01/04/21 13:05 [email or web address]) Nutrition Notes Need for Assessment generated from: MD Order,Education Initial or Follow up Brief Note Current Diagnosis Diabetes,Hypertension, Hyperlipidemia Other Pertinent Diagnosis GERD, etoh dependence Subjective/Other Information MD order for diet education. Pt reports getting education but not really being taught what to do. Pt agreed to decrease his candy intake. Pt unable to hold full conversation. #1 Nutrition Diagnosis Limited adherence to nutrition -related recommendations Etiology lack of understanding of prior education As Evidenced by Signs and Symptoms pt confused how to change diet Nutrition Intervention Teaching Recipient Patient Learning Readiness Poor Teaching Methods Discussion Response to Teaching Reinforcement needed Barriers to Learning Environmental RD phone number provided No Patient aware of follow up options Yes Actions To Overcome Barriers Other Follow-Up By: 01/08/21 Additional Comments FU for diet education reinforcement
[2021-01-05] MEDS ORDERED: HEPARIN 10,000 UNITS/10 ML VIAL IV ONE (20:45)
[2021-01-05] MEDS: MELATONIN 5 MG TAB PO SCH (21:17)
[2021-01-05] MEDS: HEPARIN 5,000 UNIT/1 ML VIAL SUB-Q SCH (22:31)
[2021-01-05] MEDS: 1: FOLIC ACID 1 MG, MULTIPLE VITAMIN INJ, ADULT 10 ML, THIAMINE 100 MG in SODIUM CHLORID IV SCH ×2 (22:31→22:32)
[2021-01-05] MEDS: hydrALAZINE 20 MG/1 ML INJ IV PRN (23:53)
[2021-01-06] MEDS: HEPARIN/ 0.45% NACL DRIP 25,000 UNIT/500 ML BAG IV SCH ×2 (04:13→18:23)
[2021-01-06] MEDS: LORazepam 2 MG/ML VIAL IV PRN (04:14)
[2021-01-06] MEDS: SODIUM CHLORIDE 0.9% 1000 ML 1,000 ML IV SCH ×2 (04:26→20:11)
[2021-01-06 05:36] LABS: BUN/Creatinine Ratio 13; Blood Urea Nitrogen 12 mg/dL (9-20); Calcium 8.8 mg/dL (8.4-10.2); Hemolysis Index 3
[2021-01-06] MEDS: hydrALAZINE 20 MG/1 ML INJ IV PRN ×2 (05:50→21:25)
[2021-01-06] MEDS: INSULIN LISPRO 100 UNIT/ML SUB-Q SCH ×4 (09:12→21:24)
[2021-01-06] MEDS: PANTOPRAZOLE 40 MG TAB PO SCH ×2 (09:28→21:23)
[2021-01-06] MEDS: THIAMINE 100 MG, FOLIC ACID 1 MG, MULTIPLE VITAMIN INJ, ADULT 10 ML in SODIUM CHLORIDE ... IV SCH (11:00)
--- NOTE | 2021-01-06 11:16 | Progress Note ---
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 I have extensively discussed MALIK/Cardioversion with patient and he is in agreement with proceeding. Will likely eventually benefit from atrial flutter ablation (can not be done at this facility). Subjective Date of service: 01/06/21 Interval history: No acute events Objective Vital Signs Temp Pulse Pulse Resp BP Pulse Ox 01/06/21 07:34 99.1 F 92 H 18 139/103 96 01/06/21 05:15 98.0 F 66 18 156/114 95 01/05/21 23:53 170/114 01/05/21 23:28 98.0 F 73 18 170/114 95 01/05/21 20:52 90 01/05/21 19:40 98.6 F 90 18 137/96 96 01/05/21 16:30 87 95 01/05/21 15:59 98.0 F 72 18 140/92 95 01/05/21 13:00 62 - Physical Examination General: No Apparent Distress HEENT: Positive: PERRL Neck: Positive: trachea midline Cardiac: Positive: irregularly irregular Lungs: Positive: clear to auscultation Neuro: Positive: Grossly Intact Extremities: Absent: edema - Labs and Meds Coagulation 01/05/21 Range/Units 13:24 PT 13.8 (12.2-14.9) Sec. INR 1.00 (0.87-1.13) APTT 44.5 H (24.2-36.6) Sec. CBC 01/05/21 Range/Units 13:24 Hgb 13.8 (11.8-15.2) gm/dl Hct 40.6 (35.5-45.6) % Plt Count 122 L (140-440) K/mm3 Comprehensive Metabolic Panel 01/06/21 Range/Units 04:25 Sodium 141 (137-145) mmol/L Potassium 3.1 L (3.6-5.0) mmol/L Chloride 104.8 (98-107) mmol/L Carbon Dioxide 26 (22-30) mmol/L BUN 12 (9-20) mg/dL Creatinine 0.9 (0.8-1.3) mg/dL Glucose 119 H (75-100) mg/dL Calcium 8.8 (8.4-10.2) mg/dL
[2021-01-06] MEDS: MELATONIN 5 MG TAB PO SCH (21:23)
[2021-01-07] MEDS: SODIUM CHLORIDE 0.9% 1000 ML 1,000 ML IV SCH (04:24)
[2021-01-07 05:36] LABS: Hematocrit 39.8 % (35.5-45.6); Hemoglobin 13.3 gm/dl (11.8-15.2)
[2021-01-07] MEDS: hydrALAZINE 20 MG/1 ML INJ IV PRN ×2 (05:48→17:10)
--- NOTE | 2021-01-07 08:12 | Progress Note ---
Assessment and Plan Assessment and Plan --A. Flutter persistent /rate controlled Current Visit: Yes Status: Acute Currently rate controlled.Continue metoprolol Patient was noncompliant with medications And patient refused MALIK guided cardioversion in the past Cardiology planning cardioversion during this admission Hold anticoagulation till after the procedure Echo in October 2020 with ejection fraction of 50 to 60%. Thyroid function within normal levels in November 01 Hold metoprolol in view of intermittent pauses on telemetry Thyroid function within normal limits Cardiology consulting EP consultation Started on heparin drip --Alcohol withdrawal symptoms; Current Visit: Yes Status: Acute Initiate CIWA protocol Thiamine, folic acid, multivitamins IV fluids with banana bag Restraints as needed for safety --chronic alcohol use Current Visit: Yes Status: Chronic Patient drinks alcohol on a daily basis. Counseling done strongly advised to quit alcohol intake Advised to seek alcohol rehabilitation and [employer] support group --Hypomagnesemia/hypokalemia Current Visit: Yes Status: Acute Replenished, monitor electrolytes --Acute exacerbation of chronic low back pain Current Visit: Yes Status: Acute Patient will be placed on analgesic medication as needed. Supportive care, PT if needed --Obesity; BMI 36.6 Current Visit: Yes Status: Acute Lifestyle modification encouraged. Dietary consult requested --T2DM (type 2 diabetes mellitus) Current Visit: No Status: Acute Accu-Chek sliding scale coverage ADA diet Long-acting insulin as needed --GERD (gastroesophageal reflux disease) Current Visit: No Status: Chronic Patient currently on proton pump inhibitor. --Hypertension Current Visit: No Status: Chronic We will resume routine home medications once reconciled. We will monitor vital signs closely. --DVT prophylaxis Current Visit: No Status: Acute Patient placed on anticoagulation with subcutaneous Lovenox. --Full code status Current Visit: Yes Status: Acute Patient is a full code. We will closely monitor the patient and adjust management as needed Cardiology evaluation recommendations noted and appreciated Plan of care reviewed with the patient and his nurse Disposition; follow EP cardiology evaluation recommendation Discharge when medically stable Subjective Date of service: 01/06/21 Principal diagnosis: Atrial flutter with significant pauses of about 8 seconds Interval history: Brief history: 55-year-old male patient was admitted with a flutter with rapid ventricular rate , history of alcohol use , and some withdrawal symptoms ,01/04/2021; patient has alcohol withdrawal symptoms Initiated CIWAprotocol, persistent a flutter, EP campus president was consulted for possible MALIK cardioversion. 01/04/2021; patient has severe confusion and agitation Alcohol withdrawal symptoms, CIWA protocol initiated Restraint for safety 01/05/2021; EP consult was requested by cardiology Heparin drip started, a flutter rate controlled today Continue current management 01/06/2021 Patient atrial flutter with significant pauses At 8-second pause couple of times Patient to get cardioversion on 01/08/2021 History Interval history: I have seen and examined the patient at the bedside Patient's chart and medications reviewed Patient feels slightly better more alert and awake than yesterday Continues to have atrial flutter but today it is rate controlled Vital signs reviewed Objective - Constitutional Vitals: Vital Signs - 12hr 01/06/21 01/06/21 01/07/21 21:25 23:14 04:00 Temperature 98.7 F 98.7 F Pulse Rate 94 H 100 H 73 Respiratory 20 20 Rate Blood Pressure 170/98 162/106 154/115 O2 Sat by Pulse 96 95 Oximetry General appearance: Present: no acute distress, well-nourished - EENT Eyes: PERRL, EOM intact ENT: hearing intact, clear oral mucosa Ears: bilateral: normal - Neck Neck: supple, normal ROM - Respiratory Respiratory effort: normal Respiratory: bilateral: CTA - Breasts Breasts: normal - Cardiovascular Rhythm: regular Heart Sounds: Present: S1 & S2. Absent: gallop, rub Extremities: pulses intact, No edema, normal color, Full ROM - Gastrointestinal General gastrointestinal: Present: soft, non-tender, non-distended, normal bowel sounds - Genitourinary Male genitourinary: normal - Integumentary Integumentary: clear, warm, dry - Musculoskeletal Musculoskeletal: 1, strength equal bilaterally - Neurologic Neurologic: moves all extremities - Psychiatric Psychiatric: memory intact, appropriate mood/affect, intact judgment & insight - Labs CBC & Chem 7: 01/09/21 05:02 01/07/21 14:26 Labs: Abnormal lab results 01/06/21 01/06/21 01/06/21 Range/Units 11:05 15:42 21:09 POC Glucose 149 H 130 H 137 H (70-105) mg/dL 01/07/21 Range/Units 07:41 POC Glucose 116 H (70-105) mg/dL
[2021-01-07] MEDS: INSULIN LISPRO 100 UNIT/ML SUB-Q SCH ×4 (08:30→21:38)
[2021-01-07] MEDS: MULTIVITAMINS ,THERAPEUTIC TAB PO SCH (09:30)
[2021-01-07] MEDS: THIAMINE 100 MG TAB PO SCH (09:30)
[2021-01-07] MEDS: FOLIC ACID 1 MG TAB PO SCH (09:30)
[2021-01-07] MEDS: PANTOPRAZOLE 40 MG TAB PO SCH ×2 (09:30→21:38)
[2021-01-07] MEDS: HEPARIN/ 0.45% NACL DRIP 25,000 UNIT/500 ML BAG IV SCH ×2 (09:31→23:39)
[2021-01-07] MEDS ORDERED: POTASSIUM CHLORIDE ER 20 MEQ TAB PO ONE (11:15)
--- NOTE | 2021-01-07 11:51 | Progress Note ---
Assessment and Plan Assessment and Plan --A. Flutter persistent /rate controlled Current Visit: Yes Status: Acute Currently rate controlled.Continue metoprolol Patient was noncompliant with medications And patient refused MALIK guided cardioversion in the past Cardiology planning cardioversion during this admission Hold anticoagulation till after the procedure Echo in October 2020 with ejection fraction of 50 to 60%. Thyroid function within normal levels in November 01 Hold metoprolol in view of intermittent pauses on telemetry Thyroid function within normal limits Cardiology consulting EP consultation Started on heparin drip --Alcohol withdrawal symptoms; Current Visit: Yes Status: Acute Initiate CIWA protocol Thiamine, folic acid, multivitamins IV fluids with banana bag Restraints as needed for safety --chronic alcohol use Current Visit: Yes Status: Chronic Patient drinks alcohol on a daily basis. Counseling done strongly advised to quit alcohol intake Advised to seek alcohol rehabilitation and [employer] support group --Hypomagnesemia/hypokalemia Current Visit: Yes Status: Acute Replenished, monitor electrolytes --Acute exacerbation of chronic low back pain Current Visit: Yes Status: Acute Patient will be placed on analgesic medication as needed. Supportive care, PT if needed --Obesity; BMI 36.6 Current Visit: Yes Status: Acute Lifestyle modification encouraged. Dietary consult requested --T2DM (type 2 diabetes mellitus) Current Visit: No Status: Acute Accu-Chek sliding scale coverage ADA diet Long-acting insulin as needed --GERD (gastroesophageal reflux disease) Current Visit: No Status: Chronic Patient currently on proton pump inhibitor. --Hypertension Current Visit: No Status: Chronic We will resume routine home medications once reconciled. We will monitor vital signs closely. --DVT prophylaxis Current Visit: No Status: Acute Patient placed on anticoagulation with subcutaneous Lovenox. --Full code status Current Visit: Yes Status: Acute Patient is a full code. We will closely monitor the patient and adjust management as needed Cardiology evaluation recommendations noted and appreciated Plan of care reviewed with the patient and his nurse Disposition; follow EP cardiology evaluation recommendation Discharge when medically stable Subjective Date of service: 01/07/21 Principal diagnosis: Atrial flutter with significant pauses Interval history: Brief history: 55-year-old male patient was admitted with a flutter with rapid ventricular rate , history of alcohol use , and some withdrawal symptoms ,01/04/2021; patient has alcohol withdrawal symptoms Initiated CIWAprotocol, persistent a flutter, EP electric power machine operator was consulted for possible MALIK cardioversion. 01/04/2021; patient has severe confusion and agitation Alcohol withdrawal symptoms, CIWA protocol initiated Restraint for safety 01/05/2021; EP consult was requested by cardiology Heparin drip started, a flutter rate controlled today Continue current management 01/06/2021 Patient in atrial flutter with 8-second pause Patient for cardioversion on Friday Discussed with Dr. Newby 01/07/2021 patient Patient still in atrial flutter with significant pauses Patient needs cardioversion Dr. Newby in agreement ended to arrange for cardioversion on Friday History Interval history: I have seen and examined the patient at the bedside Patient's chart and medications reviewed Patient feels slightly better more alert and awake than yesterday Continues to have atrial flutter but today it is rate controlled Vital signs reviewed Objective - Constitutional Vitals: Vital Signs - 12hr 01/07/21 01/07/21 04:00 07:43 Temperature 98.7 F 98.0 F Pulse Rate 73 98 H Respiratory 20 18 Rate Blood Pressure 154/115 134/94 O2 Sat by Pulse 95 94 Oximetry General appearance: Present: no acute distress, well-nourished - EENT Eyes: PERRL, EOM intact ENT: hearing intact, clear oral mucosa Ears: bilateral: normal - Neck Neck: supple, normal ROM - Respiratory Respiratory effort: normal Respiratory: bilateral: CTA - Breasts Breasts: normal - Cardiovascular Heart rate: 100 Rhythm: irregularly irregular Heart Sounds: Present: S1 & S2. Absent: gallop, rub Extremities: pulses intact, No edema, normal color, Full ROM - Gastrointestinal General gastrointestinal: Present: soft, non-tender, non-distended, normal bowel sounds - Genitourinary Male genitourinary: normal - Integumentary Integumentary: clear, warm, dry - Musculoskeletal Musculoskeletal: 1, strength equal bilaterally - Neurologic Neurologic: moves all extremities - Psychiatric Psychiatric: memory intact, appropriate mood/affect, intact judgment & insight - Labs CBC & Chem 7: 01/09/21 05:02 01/07/21 14:26 Labs: Abnormal lab results 01/06/21 01/06/21 01/07/21 Range/Units 15:42 21:09 07:41 POC Glucose 130 H 137 H 116 H (70-105) mg/dL 01/07/21 Range/Units 11:22 POC Glucose 125 H (70-105) mg/dL
--- NOTE | 2021-01-07 12:46 | Progress Note ---
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 I have extensively discussed MALIK/Cardioversion with patient and he is in agreement with proceeding. Will likely eventually benefit from atrial flutter ablation (can not be done at this facility) - he should f/u with me in office after discharge I have also extensively counseled patient to stop drinking alcohol and join AA. Subjective Date of service: 01/07/21 Interval history: No acute events Objective Vital Signs Temp Pulse Resp BP Pulse Ox 01/07/21 11:25 98.0 F 99 H 20 144/88 95 01/07/21 10:00 18 96 01/07/21 07:43 98.0 F 98 H 18 134/94 94 01/07/21 04:00 98.7 F 73 20 154/115 95 01/06/21 23:14 98.7 F 100 H 20 162/106 96 01/06/21 21:25 94 H 170/98 01/06/21 20:04 99.2 F 94 H 20 170/98 96 01/06/21 15:44 98.6 F 100 H 18 149/105 95 01/06/21 13:01 140 H - Physical Examination General: No Apparent Distress HEENT: Positive: PERRL Neck: Positive: trachea midline Cardiac: Positive: Reg Rate and Rhythm Lungs: Positive: clear to auscultation Neuro: Positive: Grossly Intact Abdomen: Positive: Soft, Active Bowel Sounds Extremities: Absent: edema - Labs and Meds CBC 01/07/21 Range/Units 04:22 Hgb 13.3 (11.8-15.2) gm/dl Hct 39.8 (35.5-45.6) % Plt Count 151 (140-440) K/mm3
[2021-01-07 15:00] LABS: Hematocrit 41.9 % (35.5-45.6); Hemoglobin 14.2 gm/dl (11.8-15.2); Mean Corpuscular HGB Conc 34 % (32-34); Mean Corpuscular Volume 95 fl (84-94); Platelet Count 182 K/mm3 (140-440); Red Blood Count 4.44 M/mm3 (3.65-5.03); Red Cell Distribution Width 15.6 % (13.2-15.2)
[2021-01-07 15:21] LABS: Alanine Aminotransferase 14 units/L (7-56); Albumin 4.1 g/dL (3.9-5); BUN/Creatinine Ratio 10; Blood Urea Nitrogen 10 mg/dL (9-20); Calcium 9.6 mg/dL (8.4-10.2); Hemolysis Index 12
[2021-01-07] MEDS: MELATONIN 5 MG TAB PO SCH (21:38)
[2021-01-08] MEDS: hydrALAZINE 20 MG/1 ML INJ IV PRN (06:17)
[2021-01-08] MEDS: INSULIN LISPRO 100 UNIT/ML SUB-Q SCH ×4 (08:03→21:34)
--- NOTE | 2021-01-08 09:52 | Event Note ---
Date: 01/08/21 Patient is planned for MALIK guided cardioversion, to be performed this morning. He has been n.p.o. in anticipation of the procedure.
[2021-01-08] MEDS ORDERED: SODIUM CHLORIDE 0.9% 1000 ML 1,000 ML ONE (12:11)
[2021-01-08] MEDS: HEPARIN/ 0.45% NACL DRIP 25,000 UNIT/500 ML BAG IV SCH (12:33)
[2021-01-08] MEDS ORDERED: BENZOCAINE 20% TOP SPRAY 0.5 ML UNIT DOSE MM NR (13:00)
[2021-01-08] MEDS ORDERED: propofoL 200 MG/20 ML VIAL IV ONE ×2 (13:10)
--- NOTE | 2021-01-08 13:30 | Anesthesia Day of Surgery ---
Anesthesia Day of Surgery - Day of Surgery Patient Examined: Yes Patient H&P Reviewed: Yes Patient is NPO: Yes
--- NOTE | 2021-01-08 13:40 | Anesthesia Consultation ---
Anesthesia Consult and Med Hx Date of service: 01/08/21 - Airway Anesthetic Teeth Evaluation: Good ROM Head & Neck: Adequate Mental/Hyoid Distance: Adequate Mallampati Class: Class IV Intubation Access Assessment: Possibly Difficult - Pre-Operative Health Status ASA Pre-Surgery Classification: ASA3 Proposed Anesthetic Plan: MAC (GA if needed) - Pulmonary Hx Smoking: No Hx Asthma: No COPD: No Hx Pneumonia: No Hx Sleep Apnea: Yes - Cardiovascular System Hx Hypertension: Yes Hx Angina: No Hx Cardia Arrhythmia: Yes (AF) Hx Pacemaker: No Hx Internal Defibrillator: No - Central Nervous System Hx Neuromuscular Disorder: No Hx Seizures: No Hx Back Pain: Yes Hx Psychiatric Problems: Yes (Anxiety/Depression) - Gastrointestinal Hx Gastroesophageal Reflux Disease: Yes - Endocrine Hx Renal Disease: No Hx End Stage Renal Disease: No Hx Liver Disease: No Hx Non-Insulin Dependent Diabetes: Yes Hx Thyroid Disease: No Hx Hypothyroidism: No Hx Hyperthyroidism: No - Hematic Hx Anemia: No Hx Sickle Cell Disease: No - Other Systems Hx Alcohol Use: Yes Hx Substance Use: Yes Hx Cancer: No Hx Obesity: Yes
--- NOTE | 2021-01-08 13:40 | Event Note ---
Date: 01/08/21 Procedure Note: MALIK/Cardioversion performed after informed consent. He was given 300 mg Diprivan IV by Anesthesia. MALIK probe introduced without difficulty: no LA or MAYKEL thrombus observed. Probe was withdrawn and 200J administered with successful electrical cardioversion of Afib/flutter to sinus rhtyhm 100s bpm Pt tolerated procedure with no complications.
--- NOTE | 2021-01-08 15:05 | Post Anesthesia Evaluation ---
- Post Anesthesia Evaluation Patient Participated: Yes Airway Patent: Yes Stable Respiratory Function: Yes Nausea/Vomiting: No Temp > 96.8F: Yes Pain Manageable: Yes Adequeate Hydration: Yes Anesthesia Complications: No Block Receding Appropriately: Not Applicable Patient on Ventilator: No
[2021-01-08] MEDS: FOLIC ACID 1 MG TAB PO SCH (16:18)
[2021-01-08] MEDS: PANTOPRAZOLE 40 MG TAB PO SCH ×2 (16:18→21:34)
[2021-01-08] MEDS: THIAMINE 100 MG TAB PO SCH (16:18)
[2021-01-08] MEDS: MULTIVITAMINS ,THERAPEUTIC TAB PO SCH (16:19)
--- NOTE | 2021-01-08 17:16 | Progress Note ---
Assessment and Plan Assessment and Plan --A. Flutter persistent /rate controlled Current Visit: Yes Status: Acute Patient had cardioversion today via transesophageal route Patient was sedated and was given 200 mJ and cardioverted Patient in sinus rhythm now Patient comfortable We will discharge patient tomorrow if cardiology agrees --Alcohol withdrawal symptoms; Current Visit: Yes Status: Acute Doing well No withdrawal symptoms --chronic alcohol use Current Visit: Yes Status: Chronic Patient drinks alcohol on a daily basis. Counseling done strongly advised to quit alcohol intake Advised to seek alcohol rehabilitation and [employer] support group --Hypomagnesemia/hypokalemia Current Visit: Yes Status: Acute Replenished, monitor electrolytes --Acute exacerbation of chronic low back pain Current Visit: Yes Status: Acute Patient will be placed on analgesic medication as needed. Supportive care, PT if needed --Obesity; BMI 36.6 Current Visit: Yes Status: Acute Lifestyle modification encouraged. Dietary consult requested --T2DM (type 2 diabetes mellitus) Current Visit: No Status: Acute Accu-Chek sliding scale coverage ADA diet Long-acting insulin as needed --GERD (gastroesophageal reflux disease) Current Visit: No Status: Chronic Patient currently on proton pump inhibitor. --Hypertension Current Visit: No Status: Chronic We will resume routine home medications once reconciled. We will monitor vital signs closely. --DVT prophylaxis Current Visit: No Status: Acute Patient placed on anticoagulation with subcutaneous Lovenox. --Full code status Current Visit: Yes Status: Acute Patient is a full code. We will closely monitor the patient and adjust management as needed Cardiology evaluation recommendations noted and appreciated Plan of care reviewed with the patient and his nurse Disposition patient had cardioversion today successfully Patient to be discharged tomorrow if cardiology agrees Patient is very comfortable Subjective Date of service: 01/08/21 Principal diagnosis: atrial flutter with significant pauses Interval history: Brief history: 55-year-old male patient was admitted with a flutter with rapid ventricular rate , history of alcohol use , and some withdrawal symptoms ,01/04/2021; patient has alcohol withdrawal symptoms Initiated CIWAprotocol, persistent a flutter, 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 01/04/2021; patient has severe confusion and agitation Alcohol withdrawal symptoms, CIWA protocol initiated Restraint for safety 01/05/2021; EP consult was requested by cardiology Heparin drip started, a flutter rate controlled today Continue current management 01/06/2021 Patient in atrial flutter Patient with 8-second pauses Discussed with Dr. Newby Cardioversion on Friday01/07/2021 Cardioversion on Friday01/08/2021 Patient had sedation and was cardioverted by MALIK Patient in sinus rhythm Comfortable History Interval history: I have seen and examined the patient at the bedside Patient's chart and medications reviewed Patient feels slightly better more alert and awake than yesterday Continues to have atrial flutter but today it is rate controlled Vital signs reviewed Objective - Constitutional Vitals: Vital Signs - 12hr 01/08/21 01/08/21 01/08/21 06:17 07:35 10:00 Temperature 98.4 F Temperature [ Post-Procedure] Temperature [ Pre-Procedure] Pulse Rate 67 Pulse Rate [ Post-Procedure] Pulse Rate [Pre -Procedure] Respiratory 20 18 Rate Respiratory Rate [Post- Procedure] Respiratory Rate [Pre- Procedure] Blood Pressure 153/106 155/99 Blood Pressure [Post-Procedure ] Blood Pressure [Pre-Procedure] O2 Sat by Pulse 97 98 Oximetry O2 Sat by Pulse Oximetry [Post -Procedure] O2 Sat by Pulse Oximetry [Pre- Procedure] 01/08/21 01/08/21 01/08/21 12:40 13:25 13:28 Temperature Temperature [ 98.0 F Post-Procedure] Temperature [ 98.0 F Pre-Procedure] Pulse Rate 102 H Pulse Rate [ 100 H Post-Procedure] Pulse Rate [Pre 140 H -Procedure] Respiratory Rate Respiratory 19 Rate [Post- Procedure] Respiratory 22 Rate [Pre- Procedure] Blood Pressure Blood Pressure 105/56 [Post-Procedure ] Blood Pressure 114/69 [Pre-Procedure] O2 Sat by Pulse Oximetry O2 Sat by Pulse 106 H Oximetry [Post -Procedure] O2 Sat by Pulse 100 Oximetry [Pre- Procedure] 01/08/21 01/08/21 01/08/21 13:45 14:00 14:05 Temperature Temperature [ Post-Procedure] Temperature [ Pre-Procedure] Pulse Rate Pulse Rate [ 100 H 97 H 100 H Post-Procedure] Pulse Rate [Pre -Procedure] Respiratory Rate Respiratory 19 14 16 Rate [Post- Procedure] Respiratory Rate [Pre- Procedure] Blood Pressure Blood Pressure 119/75 127/89 119/80 [Post-Procedure ] Blood Pressure [Pre-Procedure] O2 Sat by Pulse Oximetry O2 Sat by Pulse 100 97 98 Oximetry [Post -Procedure] O2 Sat by Pulse Oximetry [Pre- Procedure] General appearance: Present: no acute distress, well-nourished - EENT Eyes: PERRL, EOM intact ENT: hearing intact, clear oral mucosa Ears: bilateral: normal - Neck Neck: supple, normal ROM - Respiratory Respiratory effort: normal Respiratory: bilateral: CTA - Breasts Breasts: normal - Cardiovascular Heart rate: 78 Rhythm: regular Heart Sounds: Present: S1 & S2. Absent: gallop, rub Extremities: pulses intact, No edema, normal color, Full ROM - Gastrointestinal General gastrointestinal: Present: soft, non-tender, non-distended, normal bowel sounds - Genitourinary Male genitourinary: normal - Integumentary Integumentary: clear, warm, dry - Musculoskeletal Musculoskeletal: 1, strength equal bilaterally - Neurologic Neurologic: moves all extremities - Psychiatric Psychiatric: memory intact, appropriate mood/affect, intact judgment & insight - Labs CBC & Chem 7: 01/09/21 05:02 01/07/21 14:26 Labs: Abnormal lab results 01/07/21 01/08/21 01/08/21 Range/Units 20:57 04:48 11:26 Heparin Anti-Xa Level 0.28 L (0.3-0.7) U.I./ml POC Glucose 123 H 110 H (70-105) mg/dL 01/08/21 Range/Units 15:53 Heparin Anti-Xa Level (0.3-0.7) U.I./ml POC Glucose 120 H (70-105) mg/dL
[2021-01-08] MEDS: MELATONIN 5 MG TAB PO SCH (21:34)
[2021-01-09] MEDS: HEPARIN/ 0.45% NACL DRIP 25,000 UNIT/500 ML BAG IV SCH (01:13)
[2021-01-09] MEDS: hydrALAZINE 20 MG/1 ML INJ IV PRN (05:33)
[2021-01-09 05:53] LABS: Hemoglobin 12.8 gm/dl (11.8-15.2)
[2021-01-09] MEDS: INSULIN LISPRO 100 UNIT/ML SUB-Q SCH ×3 (08:20→16:03)
[2021-01-09] MEDS: THIAMINE 100 MG TAB PO SCH (09:26)
[2021-01-09] MEDS: MULTIVITAMINS ,THERAPEUTIC TAB PO SCH (09:26)
[2021-01-09] MEDS: FOLIC ACID 1 MG TAB PO SCH (09:27)
[2021-01-09] MEDS: PANTOPRAZOLE 40 MG TAB PO SCH (09:27)
--- NOTE | 2021-01-09 09:30 | Progress Note ---
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 Otherwise, conservative cardiac management. Once discharged, patient will f ke in our office with Dr Nweby. Subjective Date of service: 01/09/21 Principal diagnosis: Atrial flutter with significant pauses of about 8 seconds Interval history: Patient is 1 day post MALIK guided CV. Currently he is stable sinus rhythm on telemetry. Objective Vital Signs Temp Temp Temp Pulse Pulse Pulse Pulse 01/09/21 08:21 107 H 101 H 01/09/21 08:20 92 H 01/09/21 07:33 98.5 F 102 H 01/09/21 05:33 88 01/09/21 05:00 94 H 01/09/21 03:35 98.6 F 94 H 01/08/21 23:24 97.7 F 96 H 01/08/21 21:00 107 H 01/08/21 20:31 107 H 101 H 01/08/21 19:08 98.4 F 107 H 01/08/21 16:23 01/08/21 14:05 100 H 01/08/21 14:00 97 H 01/08/21 13:45 100 H 01/08/21 13:28 98.0 F 100 H 01/08/21 13:25 98.0 F 01/08/21 12:40 102 H 01/08/21 10:00 Pulse Resp Resp Resp BP BP BP 01/09/21 08:21 18 01/09/21 08:20 01/09/21 07:33 20 125/82 01/09/21 05:33 146/103 01/09/21 05:00 01/09/21 03:35 18 165/107 01/08/21 23:24 16 149/107 01/08/21 21:00 01/08/21 20:31 18 01/08/21 19:08 18 140/103 01/08/21 16:23 136/104 01/08/21 14:05 16 119/80 01/08/21 14:00 14 127/89 01/08/21 13:45 19 119/75 01/08/21 13:28 19 105/56 01/08/21 13:25 140 H 22 114/69 01/08/21 12:40 01/08/21 10:00 18 Pulse Ox Pulse Ox Pulse Ox 01/09/21 08:21 96 01/09/21 08:20 01/09/21 07:33 93 01/09/21 05:33 01/09/21 05:00 01/09/21 03:35 91 01/08/21 23:24 97 01/08/21 21:00 01/08/21 20:31 96 01/08/21 19:08 93 01/08/21 16:23 01/08/21 14:05 98 01/08/21 14:00 97 01/08/21 13:45 100 01/08/21 13:28 106 H 01/08/21 13:25 100 01/08/21 12:40 01/08/21 10:00 98 - Physical Examination General: No Apparent Distress HEENT: Positive: PERRL Neck: Positive: trachea midline Cardiac: Positive: Reg Rate and Rhythm Lungs: Positive: Decreased Breath Sounds Neuro: Positive: Grossly Intact Abdomen: Positive: Soft, Active Bowel Sounds Extremities: Absent: edema - Labs and Meds CBC 01/09/21 Range/Units 05:02 Hgb 12.8 (11.8-15.2) gm/dl Hct 38.0 (35.5-45.6) % Plt Count 206 (140-440) K/mm3
--- NOTE | 2021-01-09 10:22 | Progress Note ---
Assessment and Plan Assessment and plan: --A. Flutter persistent /rate controlled Current Visit: Yes Status: Acute Patient had cardioversion today via transesophageal route Patient was sedated and was given 200 mJ and cardioverted Patient in sinus rhythm now Patient comfortable We will discharge patient tomorrow if cardiology agrees --Alcohol withdrawal symptoms; Current Visit: Yes Status: Acute Doing well No withdrawal symptoms --chronic alcohol use Current Visit: Yes Status: Chronic Patient drinks alcohol on a daily basis. Counseling done strongly advised to quit alcohol intake Advised to seek alcohol rehabilitation and [facility] alcohol [facility] support group --Hypomagnesemia/hypokalemia Current Visit: Yes Status: Acute Replenished, monitor electrolytes --Acute exacerbation of chronic low back pain Current Visit: Yes Status: Acute Patient will be placed on analgesic medication as needed. Supportive care, PT if needed --Obesity; BMI 36.6 Current Visit: Yes Status: Acute Lifestyle modification encouraged. Dietary consult requested --T2DM (type 2 diabetes mellitus) Current Visit: No Status: Acute Accu-Chek sliding scale coverage ADA diet Long-acting insulin as needed --GERD (gastroesophageal reflux disease) Current Visit: No Status: Chronic Patient currently on proton pump inhibitor. 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 We will monitor vital signs closely. --DVT prophylaxis Current Visit: No Status: Acute Patient placed on anticoagulation with subcutaneous Lovenox. --Full code status Current Visit: Yes Status: Acute Patient is a full code. We will closely monitor the patient and adjust management as needed Cardiology evaluation recommendations noted and appreciated Plan of care reviewed with the patient and his nurse Disposition patient had cardioversion today successfully Patient to be discharged tomorrow if cardiology agrees Patient is very comfortable Subjective Date of service: 01/08/21 Principal diagnosis: atrial flutter with significant pauses Interval history: Brief history: 55-year-old male patient was admitted with a flutter with rapid ventricular rate , history of alcohol use , and some withdrawal symptoms ,01/04/2021; patient has alcohol withdrawal symptoms Initiated CIWAprotocol, persistent a flutter, EP campus recruiter was consulted for possible MALIK cardioversion. 01/04/2021; patient has severe confusion and agitation Alcohol withdrawal symptoms, CIWA protocol initiated Restraint for safety 01/05/2021; EP consult was requested by cardiology Heparin drip started, a flutter rate controlled today Continue current management 01/06/2021 Patient in atrial flutter Patient with 8-second pauses Discussed with Dr. Newby Cardioversion on Friday01/07/2021 Cardioversion on Friday01/08/2021 Patient had sedation and was cardioverted by MLAIK Patient in sinus rhythm Comfortable 01/09/2021; Patient feels better, anxious to go home Patient had 10 cm mesenteric mass on CT abdomen and pelvis Will get MRI, consult general surgery Continue all the other management at this point Possible discharge in 1 to 2 days if stable History Interval history: I have seen and examined the patient at the bedside Patient's chart and medications reviewed Patient had MALIK cardioversion yesterday Patient feels better no new complaints Vital signs noted Hospitalist Physical - Constitutional Vitals: Temp Pulse Resp BP Pulse Ox 98.5 F 101 H 18 125/82 96 01/09/21 07:33 01/09/21 08:21 01/09/21 08:21 01/09/21 07:33 01/09/21 08:21 General appearance: Present: no acute distress, well-nourished - EENT Eyes: Present: PERRL, EOM intact - Neck Neck: Present: supple, normal ROM - Respiratory Respiratory effort: normal Respiratory: bilateral: diminished, negative: rales, rhonchi, wheezing - Cardiovascular Rhythm: regular Heart Sounds: Present: S1 & S2 - Extremities Extremities: no ischemia, No edema - Abdominal General gastrointestinal: soft, non-tender, non-distended, normal bowel sounds - Integumentary Integumentary: Present: clear, warm - Psychiatric Psychiatric: appropriate mood/affect, cooperative - Neurologic Neurologic: CNII-XII intact, moves all extremities Results - Labs CBC & Chem 7: 01/09/21 13:35 01/09/21 13:35 Labs: Laboratory Last Values WBC 8.5 K/mm3 (4.5-11.0) 01/07/21 14:26 RBC 4.44 M/mm3 (3.65-5.03) 01/07/21 14:26 Hgb 12.8 gm/dl (11.8-15.2) 01/09/21 05:02 Hct 38.0 % (35.5-45.6) 01/09/21 05:02 MCV 95 fl (84-94) H 01/07/21 14:26 MCH 32 pg (28-32) 01/07/21 14:26 MCHC 34 % (32-34) 01/07/21 14:26 RDW 15.6 % (13.2-15.2) H 01/07/21 14:26 Plt Count 206 K/mm3 (140-440) 01/09/21 05:02 Lymph % (Auto) 30.5 % (13.4-35.0) 01/04/21 03:55 Coal % (Auto) 11.4 % (0.0-7.3) H 01/04/21 03:55 Eos % (Auto) 1.3 % (0.0-4.3) 01/04/21 03:55 Baso % (Auto) 0.2 % (0.0-1.8) 01/04/21 03:55 Lymph # (Auto) 2.2 K/mm3 (1.2-5.4) 01/04/21 03:55 Coal # (Auto) 0.8 K/mm3 (0.0-0.8) 01/04/21 03:55 Eos # (Auto) 0.1 K/mm3 (0.0-0.4) 01/04/21 03:55 Baso # (Auto) 0.0 K/mm3 (0.0-0.1) 01/04/21 03:55 Seg Neutrophils % 56.6 % (40.0-70.0) 01/04/21 03:55 Seg Neutrophils # 4.1 K/mm3 (1.8-7.7) 01/04/21 03:55 PT 13.8 Sec. (12.2-14.9) 01/05/21 13:24 INR 1.00 (0.87-1.13) 01/05/21 13:24 APTT 44.5 Sec. (24.2-36.6) H 01/05/21 13:24 Heparin Anti-Xa Level 0.54 U.I./ml (0.3-0.7) 01/08/21 14:36 Sodium 137 mmol/L (137-145) 01/07/21 14:26 Potassium 3.5 mmol/L (3.6-5.0) L 01/07/21 14:26 Chloride 103.3 mmol/L (98-107) 01/07/21 14:26 Carbon Dioxide 19 mmol/L (22-30) L D 01/07/21 14:26 Anion Gap 18 mmol/L 01/07/21 14:26 BUN 10 mg/dL (9-20) 01/07/21 14:26 Creatinine 1.0 mg/dL (0.8-1.3) 01/07/21 14:26 Estimated GFR > 60 ml/min 01/07/21 14:26 BUN/Creatinine Ratio 10 % 01/07/21 14:26 Glucose 134 mg/dL (75-100) H 01/07/21 14:26 POC Glucose 103 mg/dL (70-105) 01/09/21 07:23 Calcium 9.6 mg/dL (8.4-10.2) 01/07/21 14:26 Phosphorus 2.20 mg/dL (2.5-4.5) L 01/06/21 04:25 Magnesium 1.40 mg/dL (1.7-2.3) L 01/06/21 04:25 Total Bilirubin 0.40 mg/dL (0.1-1.2) 01/07/21 14:26 AST 24 units/L (5-40) 01/07/21 14:26 ALT 14 units/L (7-56) 01/07/21 14:26 Alkaline Phosphatase 50 units/L (35-129) 01/07/21 14:26 Total Creatine Kinase 585 units/L (55-170) H 01/03/21 01:45 Total Protein 7.6 g/dL (6.3-8.2) 01/07/21 14:26 Albumin 4.1 g/dL (3.9-5) 01/07/21 14:26 Albumin/Globulin Ratio 1.2 % 01/07/21 14:26 TSH 2.650 mlU/mL (0.270-4.200) 01/03/21 12:19 Free T4 1.05 ng/dL (0.76-1.46) 01/03/21 12:19 Urine Color Yellow (Yellow) 01/03/21 01:35 Urine Turbidity Clear (Clear) 01/03/21 01:35 Urine pH 7.0 (5.0-7.0) 01/03/21 01:35 Ur Specific [place] 1.016 (1.003-1.030) 01/03/21 01:35 Urine Protein 30 mg/dl mg/dL (Negative) 01/03/21 01:35 Urine Glucose (UA) 50 mg/dL (Negative) 01/03/21 01:35 Urine Ketones Neg mg/dL (Negative) 01/03/21 01:35 Urine Blood Neg (Negative) 01/03/21 01:35 Urine Nitrite Neg (Negative) 01/03/21 01:35 Urine Bilirubin Neg (Negative) 01/03/21 01:35 Urine Urobilinogen 4.0 mg/dL (<2.0) 01/03/21 01:35 Ur Leukocyte Esterase Neg (Negative) 01/03/21 01:35 Urine WBC (Auto) 1.0 /HPF (0.0-6.0) 01/03/21 01:35 Urine RBC (Auto) 2.0 /HPF (0.0-6.0) 01/03/21 01:35 U Epithel Cells (Auto) 1.0 /HPF (0-13.0) 01/03/21 01:35 Hyaline Casts 5 /LPF 01/03/21 01:35 Urine Mucus Few /HPF 01/03/21 01:35 Salicylates < 0.3 mg/dL (2.8-20.0) L 01/03/21 01:45 Urine Opiates Screen Presumptive negative 01/03/21 01:35 Urine Methadone Screen Presumptive negative 01/03/21 01:35 Acetaminophen 5.0 ug/mL (10.0-30.0) L 01/03/21 01:45 Ur Barbiturates Screen Presumptive negative 01/03/21 01:35 Ur Phencyclidine Scrn Presumptive negative 01/03/21 01:35 Ur Amphetamines Screen Presumptive negative 01/03/21 01:35 U Benzodiazepines Scrn Presumptive negative 01/03/21 01:35 Urine Cocaine Screen Presumptive negative 01/03/21 01:35 U Marijuana (THC) Screen Presumptive negative 01/03/21 01:35 Drugs of Abuse Note Disclamer 01/03/21 01:35 Plasma/Serum Alcohol < 0.01 % (0-0.07) 01/03/21 01:45 Vasques/IV: Voiding Method Urinal Active Medications - Current Medications Current Medications: Generic Name Dose Route Start Last Admin Trade Name Freq PRN Reason Stop Dose Admin Acetaminophen 650 mg 01/03/21 04:57 01/03/21 21:10 Acetaminophen 325 Mg Tab PO 650 mg Q4H PRN Administration Pain MILD(1-3)/Fever >100.5/VAUGHN Atorvastatin Calcium 40 mg 01/03/21 22:00 01/08/21 21:34 Atorvastatin 40 Mg Tab PO 40 mg QHS DIAMOND Administration Dextrose 50 ml 01/03/21 04:57 Dextrose 50% In Water (25gm) 50 Ml Syringe IV Q30MIN PRN Hypoglycemia Protocol Folic Acid 1 mg 01/07/21 10:00 01/09/21 09:27 Folic Acid 1 Mg Tab PO 1 mg DAILY DIAMOND Administration Haloperidol Lactate 5 mg 01/04/21 09:00 Haloperidol Lactate 5 Mg/1 Ml Inj IV Q1HR PRN Unrespon. to mult. doses BZD's Heparin Sodium (Porcine) 5,000 unit 01/05/21 10:30 Heparin 10,000 Units/10 Ml Vial IV Q6H PRN Anti-Xa Assay < 0.1 units/ml Hydralazine HCl 10 mg 01/05/21 23:42 01/09/21 05:33 Hydralazine 20 Mg/1 Ml Inj IV 10 mg Q4HR PRN Administration SBP >/=160; DBP >/=100 Heparin Sodium/Sodium Chloride 25,000 unit in 500 mls @ 30 mls/hr 01/05/21 1 1:00 01/09/21 01:13 Heparin/ 0.45% Nacl-25,000 Unit/500 Ml IV 2,000 units/hr TITR DIAMOND 40 mls/hr Administration Protocol 1,500 UNITS/HR Insulin Human Lispro 0 unit 01/03/21 07:30 01/09/21 08:20 Insulin Lispro 100 Unit/Ml SUB-Q Not Given ACHS DIAMOND Protocol Lorazepam 2 mg 01/04/21 08:30 01/06/21 04:14 Lorazepam 2 Mg/Ml Vial IV 2 mg Q1H PRN Administration CIWA-Ar 8-15 Lorazepam 4 mg 01/04/21 09:00 Lorazepam 2 Mg/Ml Vial IV Q1HR PRN CIWA-Ar 16-25 Lorazepam 4 mg 01/04/21 09:00 Lorazepam 2 Mg/Ml Vial IV Q15MIN PRN CIWA-Ar >25 Magnesium Hydroxide 30 ml 01/03/21 04:57 Magnesium Hydroxide (Mom) Oral Liqd Udc PO Q4H PRN Constipation Melatonin 5 mg 01/03/21 22:00 01/08/21 21:34 Melatonin 5 Mg Tab PO 5 mg QHS DIAMOND Administration Morphine Sulfate 2 mg 01/03/21 04:57 01/04/21 02:22 Morphine 2 Mg/1 Ml Inj IV 2 mg Q4H PRN Administration Pain, Moderate (4-6) Multivitamins 1 each 01/07/21 10:00 01/09/21 09:26 Multivitamins ,Therapeutic Tab PO 1 each DAILY DIAMOND Administration Ondansetron HCl 4 mg 01/03/21 04:57 Ondansetron 4 Mg/2 Ml Inj IV Q8H PRN Nausea And Vomiting Pantoprazole Sodium 40 mg 01/03/21 22:00 01/09/21 09:27 Pantoprazole 40 Mg Tab PO 40 mg BID@0800,2200 DIAMOND Administration Sodium Chloride 10 ml 01/03/21 10:00 01/09/21 09:28 Sodium Chloride 0.9% 10 Ml Flush Syringe IV Not Given BID DIAMOND Sodium Chloride 10 ml 01/03/21 04:57 01/04/21 02:25 Sodium Chloride 0.9% 10 Ml Flush Syringe IV 10 ml PRN PRN Administration LINE FLUSH Thiamine HCl 100 mg 01/07/21 10:00 01/09/21 09:26 Thiamine 100 Mg Tab PO 100 mg QDAY DIAMOND Administration Nutrition/Malnutrition Assess - Dietary Evaluation Nutrition/Malnutrition Findings: Nutrition Notes Start: 01/04/21 13:01 Freq: Status: Active Protocol: Document 01/08/21 12:35 (Rec: 01/08/21 12:36 [id number]) Nutrition Notes Need for Assessment generated from: Education Initial or Follow up Brief Note Current Diagnosis Diabetes,Hypertension, Hyperlipidemia Other Pertinent Diagnosis GERD, etoh dependence Current Diet NPO Subjective/Other Information FU for diet education. Pt made goal to decrease candy frequency and increase protein at breakfast/start eating breakfast to help curb appetite later in the day. #1 Nutrition Diagnosis Limited adherence to nutrition -related recommendations As Evidenced by Signs and Symptoms pt made to goals to change diet Diagnosis Progress(for reassessment Resolved documentation) Nutrition Intervention Teaching Recipient Patient Learning Readiness Poor Teaching Methods Discussion Barriers to Learning No Barriers RD phone number provided Yes Patient aware of follow up options Yes Revisit per MD consult or patient Sign Off request:
--- NOTE | 2021-01-09 11:15 | Electrocardiograph Report ---
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: CHRISTIAN : 1965 Requested By: MANJEET HARVEY Order Number: [id number] Reading MD: Chuck Sue Measurements Intervals [place] Rate: 112 P: 6 NM: 155 QRS: -33 QRSD: 102 T: 9 QT: 376 QTc: 514 Interpretive Statements Sinus tachycardia LAE, consider biatrial enlargement Left axis deviation Prolonged QT interval Compared to ECG 01/03/2021 02:15:58 Left-axis deviation now present Prolonged QT interval now present Atrial fibrillation no longer present Atrial flutter no longer present Intraventricular conduction delay no longer present Left ventricular hypertrophy no longer present Electronically Signed On 01-09-2021 11:14:44 EDT by Chuck Sue
[2021-01-09 13:59] LABS: Hematocrit 38.9 % (35.5-45.6); Hemoglobin 12.7 gm/dl (11.8-15.2); Mean Corpuscular HGB Conc 33 % (32-34); Mean Corpuscular Volume 95 fl (84-94); Platelet Count 245 K/mm3 (140-440); Red Blood Count 4.08 M/mm3 (3.65-5.03); Red Cell Distribution Width 15.7 % (13.2-15.2)
[2021-01-09 14:01] LABS: INR 1.06 (0.87-1.13)
[2021-01-09 14:07] LABS: Partial Thromboplastin Time 67.5 Sec. (24.2-36.6)
[2021-01-09 16:09] VITALS: BP 145/97
--- NOTE | 2021-01-09 19:49 | Discharge Summary ---
Providers - Providers Date of Admission: 01/03/21 04:16 Date of discharge: 01/09/21 Attending physician: EARLINE STAHL 01/03/21 04:57 Consult to Dietitian/Nutrition [CONS] Routine Physician Instructions: Reason For Exam: Reason for Consult: Diet education Consult to Physician [CONS] Routine Comment: Consulting Provider: JUDITH NUÑEZ Physician Instructions: Reason For Exam: Atrial flutter 01/09/21 18:48 Consult to Physician [CONS] Routine Comment: Consulting Provider: RONN MASON Physician Instructions: Requested MRI abdomen Reason For Exam: Large mesenteric mass/? Liposarcoma Primary care physician: MARGOT EVERETT DO Hospitalization Reason for admission: Palpitation/atrial flutter with rapid ventricular rate Condition: Undetermined Pertinent studies: CT head without contrast CT abdomen and pelvis MALIK Echocardiogram Procedures: s/p MALIK guided cardioversion 01/08; currently he is in stable sinus rhythm Hospital course: 55-year-old male patient was admitted with a flutter with rapid ventricular rate , history of alcohol use , and some withdrawal symptoms, patient was managed with CIWA protocol , evaluated by EP marketing program manager, and patient underwent MALIK cardioversion to sinus rhythm. Patient's atrial flutter resolved, patient continues to be on CIWA protocol, however patient chose not to stay in the hospital and left AGAINST MEDICAL ADVICE Patient left AMA Discharge diagnosis; --A. Flutter persistent /rate controlled Current Visit: Yes Status: Acute Patient had cardioversion today via transesophageal route --Alcohol withdrawal symptoms; Current Visit: Yes Status: Acute On CIWA protocol --chronic alcohol use Current Visit: Yes Status: Chronic Counseling done strongly advised to quit alcohol intake Advised to seek alcohol rehabilitation and AAA help --Hypomagnesemia/hypokalemia Current Visit: Yes Status: Acute Corrected --Acute exacerbation of chronic low back pain Current Visit: Yes Status: Acute Pain medications --Obesity; BMI 36.6 Current Visit: Yes Status: Acute Lifestyle modification encouraged. --T2DM (type 2 diabetes mellitus) Current Visit: No Status: Acute Accu-Chek sliding scale coverage ADA diet and insulin --GERD (gastroesophageal reflux disease) Current Visit: No Status: Chronic Patient currently on proton pump inhibitor. 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 We will monitor vital signs closely. --DVT prophylaxis Current Visit: No Status: Acute Patient placed on anticoagulation with subcutaneous Lovenox. --Full code status Current Visit: Yes Status: Acute Patient is a full code. Disposition: DC-07 LEFT AGAINST MED ADVICE Final Discharge Diagnosis (Prints w/discharge instructions): Persistent atrial flutter. Hypertension. Chronic alcohol use. Alcohol withdrawal symptoms. Hypomagnesemia resolved. Hypokalemia resolved. Acute on chronic back pain. T ype 2 diabetes mellitus. GERD. 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
[2021-01-09] MEDS ORDERED: APIXABAN 5 MG TAB PO SCH (22:00)
== END 2021-01-09 19:36 | disposition home or self-care (01) | DRG 552 ==
LOC: ED 03:03 → 4A 04:16
PROVIDERS: ADMIT Internal Medicine Geriatric Medicine; ATTEND Internal Medicine
DX: M54.5 Low back pain (principal); I48.92 Unspecified atrial flutter; F10.20 Alcohol dependence, uncomplicated; E66.9 Obesity, unspecified; E83.42 Hypomagnesemia; I10 Essential (primary) hypertension; E11.9 Type 2 diabetes mellitus without complications; F41.9 Anxiety disorder, unspecified; I48.91 Unspecified atrial fibrillation; K21.9 Gastro-esophageal reflux disease without esophagitis; E87.6 Hypokalemia; E78.00 Pure hypercholesterolemia, unspecified; M54.30 Sciatica, unspecified side; F32.9 Major depressive disorder, single episode, unspecified; M21.372 Foot drop, left foot; Z68.36 Body mass index [BMI] 36.0-36.9, adult; Z79.84 Long term (current) use of oral hypoglycemic drugs; Z79.899 Other long term (current) drug therapy; Z79.891 Long term (current) use of opiate analgesic; Z79.01 Long term (current) use of anticoagulants; Z88.8 Allergy status to other drugs, medicaments and biological substances
CPT/HCPCS: 36415; 70450; 74176; 80048; 80053; 80307; 80320; 81001; 82550; 82565; 82962; 83735; 84100; 84439; 84443; 85014; 85018; 85025; 85027; 85049; 85520; 85610; 85730; 93005; 93312; 93320; 93325; G0378; A9270-GY; G0480; J0360; J1644; J1815; J2060; J2270; J2704; J3360; J3411; J3475; J7030; J7120